=== PATIENT | male | born 1955 | race Caucasian/White ===

== ENCOUNTER 2017-03-18 14:05 | Emergency (ER) | payer MEDICARE, MEDICAID ==
[~2017-03-18] VITALS: Ht 160 cm; Wt 69.8 kg
[~2017-03-18 14:05] MED LIST: ALBU2.5V7 AEROSOL; AMLO10TA62 PO; ASPI-558 PO; CLOP75TA PO; HYDR-4246 PO; LORA0.5T2 PO; OXYC40TA25 PO; PRED10TA PO; [UNRECOGNIZED DRUG - CODE] PO
[2017-03-18 14:08] VITALS: Ht 160 cm; Wt 69.8 kg
--- OUTSIDE RECORDS SUMMARY | 2017-03-18 14:09 | XMS REPORT | Continuity of Care Document ---
Author Author [facility] Organization [facility] Address Unknown Phone Unavailable Support Name Relationship Address Phone ZELALEM PAULA Next Of Kin [address] [place] [address] Unavailable Insurance Providers Payer Name Policy Number Subscriber Name Relationship Medicaid [id number] [place] 19 Self Medicare [id number] Donald Balbuena 19 Self Problems No Known Problems or Medical conditions. Family History History Response Recorded Date/Time Hx Abdominal Surgery Y [place], APPE 06/14/13 5:23pm HX Cerebrovascular Accident N 06/14/13 5:23pm Hx Seizures N 06/14/13 5:23pm Hx Angina N 06/14/13 5:23pm Hx Congestive Heart Failure N 06/14/13 5:23pm Hx Heart Attack N 06/14/13 5:23pm Hx Hypertension Y 06/14/13 5:23pm Hx Chronic Obstructive Pulmonary Disease (COPD) N 06/14/13 5:23pm Hx Diabetes N 06/14/13 5:23pm Respiratory COPD 12/12/11 10:05am Social History History Response Recorded Date/Time Smoking Status Unknown if ever smoked 06/14/13 5:23pm Hx Alcohol Use Y mixed drink last night 06/14/13 5:23pm Allergies, Adverse Reactions, Alerts Allergen Type Severity Reaction Last Updated Soap Allergy Mild 06/14/13 tramadol HCl Adverse Reaction Unknown RASH 05/01/13 povidone-iodine Allergy Mild 06/14/13 Oxaprozin Allergy Unknown 05/01/13 Medications Medication Dose Units Route Sig Qty Days Amlodipine Besylate 10 Mg PO DAILY Esomeprazole Mag Trihydrate (Nexium) 20 Mg PO DAILY Aspirin (Aspir 81) 81 Mg PO DAILY Oxycodone Hcl (Oxycontin) 40 Mg PO BID Hydrocodone Bit/Acetaminophen (Hydrocodone-Apap 10-650 Tablet) 1 Tab PO BID [Amlodipine] Immunizations Name Given Type Hx Tetanus, Diptheria, Pertussis Y H Response Recorded Date/Time Status not known Unknown Results No Known Relevant Diagnostic Tests, Laboratory Data and/or Discharge Summary. Procedures Procedure Code Date THER/PROPH/DIAG INJ IV PUSH 95309 05/17/11 THER/PROPH/DIAG INJ IV PUSH 71394 10/25/12 THER/PROPH/DIAG INJ IV PUSH 20184 06/14/13 TX/PRO/DX INJ NEW DRUG ADDON 50994 06/14/13 HYDRATE IV INFUSION ADD-ON 40399 06/14/13 HYDRATE IV INFUSION ADD-ON 71466 06/14/13 Encounters Encounter Location Date/Time Departed Emergency Room [facility] 06/14/13 4:53pm Registered Emergency Room [facility] 0:00am
--- OUTSIDE RECORDS SUMMARY | 2017-03-18 14:09 | XMS REPORT ---
Author Author Alisia Sampson [facility] eClinicalWorks Address Unknown Phone Unavailable Care Team Providers Care Stereotyper Apprentice Name Role Phone Alisia Sampson Unavailable Allergies, Adverse Reactions, Alerts Substance Reaction Event Type Ultram Info Not Available Drug Allergy Problems Problem Type Condition ICD-9 Code Onset Dates Condition Status Problem Benign hypertension 401.1 Active Problem Drug Use, Long-term High-Risk Medication V58.69 Active Problem BPH W/O URINARY OBSTRUCT 600.00 Active Problem Peripheral vascular disease NOS 443.9 Active Problem Hypercholesterolemia NOS 272.4 Active Problem Dysphagia 438.82 Active Problem Anklosing spondylitis 720.0 Active Problem Tobacco use disorder 305.1 Active Problem GERD 530.81 Active Assessment Hypercholesterolemia NOS 272.4 Active Assessment Anklosing spondylitis 720.0 Active Assessment Fasting glucose impairment 790.21 Active Assessment Tobacco use disorder 305.1 Active Assessment Peripheral vascular disease NOS 443.9 Active Medications Medication Code System Code Instructions Start Date End Date Status Dosage Lortab 10 MULTUM 9765 500 mg-10 mg orally every 8 hours January 25, 2013 Active 1 tab(s) Avodart MULTUM 98525 0.5 mg orally once a day Active 1 cap(s) ranitidine MULTUM 41976 150 mg orally 2 times a day Active 1 cap(s) Echinacea Unknown 0 Active Unknown OxyContin MULTUM 6369 40mg orally Q12H January 25, 2013 Active 1 pill Cranberry Unknown 0 Active Unknown Xylocaine Topical MULTUM 97557 5% applied topically prn June 09, 2009 Active 1 jose rafael Lotrel MULTUM 1289 5 mg-10 mg orally once a day Nov 26, 2012 Active 1 cap(s) Elderberry Unknown 0 Active Unknown Nexium MULTUM 36965 40.0 Milligram Active TAKE 1 CAPSULE BY MOUTH DAILY aspirin Unknown 0 81mg daily Active 1tab Diprolene MULTUM 113 dipropionate, augmented 0.05% applied topically 2 times a day 2012 Active 1 jose rafael Procedures Procedure Coding System Code Date Glycated Hemoglobin Test CPT-4 77612 February 23, 2013 Office/Outpatient Visit-Est CPT-4 22526 February 23, 2013 Basic Metabolic Panel CPT-4 69326 February 23, 2013 Vital Signs Date/Time: February 23, 2013 Temperature 98.5 F Blood Pressure Diastolic 80 mm Hg Blood Pressure Systolic 140 mm Hg Height 61 inches Weight 151.9 lbs Results Hemoglobin A1c HEMOGLOBIN A1C(-4.5-6.2 %) 5.0 BMP - Basic Metabolic Panel (8) SODIUM(-136-145 mmol/L) 138 GLUCOSE(-74-108 mg/dL) 88 BUN/CREAT RATIO(-12.0-20.0 CALC) 14.3 POTASSIUM(-3.5-5.1 mmol/L) 4.1 CREATININE(-0.6-1.3 mg/dL) 0.7 CARBON DIOXIDE(-21-32 mmol/L) 27 CALCIUM(-8.5-10.1 mg/dL) 8.8 CHLORIDE(-98-107 mmol/L) 99 BUN(-7-18 mg/dL) 10 Summary Purpose eClinicalWorks Submission
--- OUTSIDE RECORDS SUMMARY | 2017-03-18 14:09 | XMS REPORT ---
Author Alisia Khan [facility] eClinicalWorks Address Unknown Phone Unavailable Care Team Providers Care Call Worker Person Name Role Phone Alisia Sampson CP Unavailable Allergies, Adverse Reactions, Alerts Substance Reaction Event Type Ultram Info Not Available Drug Allergy Problems Problem Type Condition ICD-9 Code Onset Dates Condition Status Problem BPH W/O URINARY OBSTRUCT 600.00 Active Problem Anklosing spondylitis 720.0 Active Problem Drug Use, Long-term High-Risk Medication V58.69 Active Problem Tobacco abuse counseling V65.42 Active Problem Peripheral vascular disease NOS 443.9 Active Problem CAD (coronary artery disease) 414.9 Active Problem GERD 530.81 Active Problem Dysphagia 438.82 Active Problem Hypercholesterolemia NOS 272.4 Active Problem Tobacco use disorder 305.1 Active Assessment Anklosing spondylitis 720.0 Active Assessment Tooth abscess 522.5 Active Assessment Groin mass 789.30 Active Problem Benign hypertension 401.1 Active Medications Medication Code System Code Instructions Start Date End Date Status Dosage aspirin NDC 0 325 PO daily Active 1tab amoxicillin NDC 85857 500 mg orally 3 times a day Sep 27, 2014 Active 1 cap(s) Nexium NDC 99384 40 mg orally daily Active not defined [place] NDC 28761 325 mg-10 mg orally every 8 hours Jun 22, 2014 Active 1 tab(s) Xylocaine Topical NDC 38995 5% applied topically prn June 09, 2009 Active 1 jose rafael Cranberry NDC 0 Active not defined Lotrel NDC 1289 5 mg-10 mg orally once a day Aug 19, 2014 Active 1 cap (s) nizatidine NDC 61723 150 mg PO daily Active 1 tab Elderberry NDC 0 Active not defined Echinacea NDC 0 Active not defined Metoprolol Tartrate NDC 1073 25 mg PO BID Active 1 tab clopidogrel NDC 73049 75 mg PO daily Active 1 tab Diprolene NDC 113 dipropionate, augmented 0.05% applied topically 2 times a day 2012 Active 1 jose rafael ranitidine NDC 76496 150 Milligram Aug 29, 2014 Active TAKE 1 CAPSULE BY MOUTH TWICE DAILY Avodart NDC 23952 0.5 mg orally once a day March 07, 2014 Active 1 cap (s) Fluticasone Propionate NDC 37189 50 mcg/inh intranasally once a day Sep Active 2 spray(s) OxyContin NDC 6369 40mg orally Q12H Active 1 pill Procedures Procedure Coding System Code Date Office/Outpatient Visit-Est CPT-4 89783 Sep 27, 2014 Vital Signs Date/Time: Sep 27, 2014 Temperature 98.3 F Blood Pressure Diastolic 80 mm Hg Blood Pressure Systolic 120 mm Hg BMI 22.52 Index Height 68 in Weight 148.1 lbs Pulse 77 /min Results No Known Results Summary Purpose eClinicalWorks Submission
--- OUTSIDE RECORDS SUMMARY | 2017-03-18 14:09 | XMS REPORT ---
Author Author Alisia Sampson [facility] eClinicalWorks Address Unknown Phone Unavailable Care Team Providers Care Ditto Machine Operator Name Role Phone Alisia Sampson Unavailable Allergies, Adverse Reactions, Alerts Substance Reaction Event Type Ultram Info Not Available Drug Allergy Problems Problem Type Condition ICD-9 Code Onset Dates Condition Status Problem Benign hypertension 401.1 Active Problem Drug Use, Long-term High-Risk Medication V58.69 Active Problem BPH W/O URINARY OBSTRUCT 600.00 Active Assessment Intervertebral disc disease 722.90 Active Assessment Anklosing spondylitis 720.0 Active Problem Peripheral vascular disease NOS 443.9 Active Problem Hypercholesterolemia NOS 272.4 Active Problem Dysphagia 438.82 Active Problem Anklosing spondylitis 720.0 Active Problem Tobacco use disorder 305.1 Active Problem GERD 530.81 Active Medications Medication Code System Code Instructions Start Date End Date Status Dosage Nexium MULTUM 05319 40 Milligram Active TAKE 1 CAPSULE BY MOUTH DAILY aspirin Unknown 0 81mg daily Active 1tab Elderberry Unknown 0 Active Unknown Xylocaine Topical MULTUM 41808 5% applied topically prn June 09, 2009 Active 1 jose rafael ranitidine MULTUM 27071 150 Milligram Active TAKE 1 CAPSULE BY MOUTH TWICE DAILY Cranberry Unknown 0 Active Unknown Diprolene MULTUM 113 dipropionate, augmented 0.05% applied topically 2 times a day 2012 Active 1 jose rafael Lortab 10 MULTUM 9765 500 mg-10 mg orally every 8 hours Active 1 tab (s) OxyContin MULTUM 6369 40mg orally Q12H Active 1 pill Echinacea Unknown 0 Active Unknown Avodart MULTUM 78024 0.5 mg orally once a day Active 1 cap(s) gabapentin MULTUM 94111 300 mg orally 3 times a day January 18, 2014 Active 1 cap(s) Lotrel MULTUM 1289 5 mg-10 mg orally once a day Nov 19, 2013 Active 1 cap(s) Procedures Procedure Coding System Code Date AT LEAST 1 RX TRANSMIT ERX SYS CPT-4 G8553 January 18, 2014 Office/Outpatient Visit-Est CPT-4 46141 January 18, 2014 Vital Signs Date/Time: January 18, 2014 Temperature 99.5 F Blood Pressure Diastolic 70 mm Hg Blood Pressure Systolic 140 mm Hg Height 60 inches Weight 147.7 lbs Results No Known Results Summary Purpose eClinicalWorks Submission
--- OUTSIDE RECORDS SUMMARY | 2017-03-18 14:09 | XMS REPORT ---
Author Author Alisia Sampson Organization eClinicalWorks Address Unknown Phone Unavailable Care Team Providers Care Remote Sensing Specialist Name Role Phone Alisia Sampson Unavailable Allergies No Known Allergies Problems Problem Type Condition ICD-9 Code Onset Dates Condition Status Problem Anklosing spondylitis 720.0 Active Problem GERD 530.81 Active Problem Dysphagia 438.82 Active Problem Hyperlipemia 272.4 Active Problem CAD (coronary artery disease) 414.00 Active Problem Gout 274.9 Active Problem Hypercholesterolemia NOS 272.4 Active Problem Tobacco use disorder 305.1 Active Problem Tobacco abuse counseling V65.42 Active Problem Peripheral vascular disease NOS 443.9 Active Problem Benign hypertension 401.1 Active Problem BPH W/O URINARY OBSTRUCT 600.00 Active Problem Drug Use, Long-term High-Risk Medication V58.69 Active Medications Medication Code System Code Instructions Start Date End Date Status Dosage [place] NDC 75434 325 mg-10 mg orally every 8 hours May 23, 2015 1 tab(s) lorazepam NDC 41241 0.5 mg orally QD prn panic attack May 23, 2015 1 tab(s) OxyContin NDC 6369 40mg orally Q12H May 23, 2015 1 pill Results No Known Results Summary Purpose eClinicalWorks Submission
--- OUTSIDE RECORDS SUMMARY | 2017-03-18 14:09 | XMS REPORT ---
Author Author Alisia Sampson Organization eClinicalWorks Address Unknown Phone Unavailable Care Team Providers Care Product Safety Coordinator Name Role Phone Alisia Sampson CP Unavailable Allergies No Known Allergies Problems Problem Type Condition Code Onset Dates Condition Status Problem Anklosing [...] Instructions Start Date End Date Status Dosage Anselmo [place] [facility] 2377 100 mg orally 3 times a day Oct 16, 2015 1 cap(s) Results No Known Results Summary Purpose eClinicalWorks Submission
--- OUTSIDE RECORDS SUMMARY | 2017-03-18 14:09 | XMS REPORT ---
Author Author Alisia Sampson Organization eClinicalWorks Address Unknown Phone Unavailable Care Team Providers Care Naval Aircrewman Name Role Phone Alisia Sampson CP Unavailable Allergies No Known Allergies Problems Problem Type Condition ICD-9 Code Onset Dates Condition Status Problem Drug Use, Long-term High-Risk Medication V58.69 Active Problem Dysphagia 438.82 Active Problem Anklosing spondylitis 720.0 Active Problem Benign hypertension 401.1 Active Problem BPH W/O URINARY OBSTRUCT 600.00 Active Problem CAD (coronary artery disease) 414.00 Active Problem Tobacco abuse counseling V65.42 Active Problem Hyperlipemia 272.4 Active Problem Tobacco use disorder 305.1 Active Problem GERD 530.81 Active Problem Peripheral vascular disease NOS 443.9 Active Problem Hypercholesterolemia NOS 272.4 Active Medications No Known Medications Results No Known Results Summary Purpose eClinicalWorks Submission
--- OUTSIDE RECORDS SUMMARY | 2017-03-18 14:09 | XMS REPORT ---
Author Author Alisia Sampson Organization eClinicalWorks Address Unknown Phone Unavailable Care Team Providers Care Salesperson Pianos [employer]gans Name Role Phone Alisia Sampson CP Unavailable Allergies No Known Allergies Problems Problem Type Condition ICD-9 Code Onset Dates Condition Status Problem BPH W/O URINARY OBSTRUCT 600.00 Active Problem Anklosing spondylitis 720.0 Active Problem Drug Use, Long-term High-Risk Medication V58.69 Active Problem Benign hypertension 401.1 Active Problem Tobacco abuse counseling V65.42 Active Problem Peripheral vascular disease NOS 443.9 Active Problem CAD (coronary artery disease) 414.00 Active Problem GERD 530.81 Active Problem Dysphagia 438.82 Active Problem Hypercholesterolemia NOS 272.4 Active Problem Tobacco use disorder 305.1 Active Medications Medication Code System Code Instructions Start Date End Date Status Dosage [place] NDC 35848 325 mg-10 mg orally every 8 hours Nov 28, 2014 Active 1 tab(s) OxyContin NDC 6369 40mg orally Q12H Nov 28, 2014 Active 1 pill Results No Known Results Summary Purpose eClinicalWorks Submission
--- OUTSIDE RECORDS SUMMARY | 2017-03-18 14:09 | XMS REPORT ---
Author Author Alisia Sampson Organization eClinicalWorks Address Unknown Phone Unavailable Care Team Providers Care Cargo Worker Name Role Phone Alisia Sampson CP Unavailable [...] Use, Long-term High-Risk Medication V58.69 Active Medications No Known Medications Results No Known Results Summary Purpose eClinicalWorks Submission
--- OUTSIDE RECORDS SUMMARY | 2017-03-18 14:09 | XMS REPORT ---
Author Author Alisia Sampson Organization eClinicalWorks Address Unknown Phone Unavailable Care Team Providers Care Community Affairs Manager Name Role Phone Alisia Sampson CP Unavailable Allergies No Known Allergies Problems Problem Type Condition ICD-9 Code Onset Dates Condition Status Problem BPH W/O URINARY OBSTRUCT 600.00 Active Problem Anklosing spondylitis 720.0 Active Problem Drug Use, Long-term High-Risk Medication V58.69 Active Assessment Benign hypertension 401.1 Active Problem Benign hypertension 401.1 Active Problem Tobacco abuse counseling V65.42 Active Problem Peripheral vascular disease NOS 443.9 Active Problem CAD (coronary artery disease) 414.00 Active Problem GERD 530.81 Active Problem Dysphagia 438.82 Active Problem Hypercholesterolemia NOS 272.4 Active Problem Tobacco use disorder 305.1 Active Medications Medication Code System Code Instructions Start Date End Date Status Dosage Lotrel NDC 1289 5 mg-10 mg orally once a day Aug 19, 2014 Active 1 cap (s) Results No Known Results Summary Purpose eClinicalWorks Submission
--- OUTSIDE RECORDS SUMMARY | 2017-03-18 14:09 | XMS REPORT ---
Author Alisia Khan [facility] eClinicalWorks Address Unknown Phone Unavailable Care Team Providers Care Etcher Photoengraving Name Role Phone Alisia Sampson Unavailable Allergies, [...] Instructions Start Date End Date Status Dosage Echinacea Unknown 0 Active Unknown OxyContin MULTUM 6369 40mg orally Q12H Nov 17, 2013 Active 1 pill Diprolene MULTUM 113 dipropionate, augmented 0.05% applied topically 2 times a day 2012 Active 1 jose rafael Lyrica MULTUM 84608 75 mg orally 2 times a day Dec 21, 2013 Active 1 cap(s) Lotrel MULTUM 1289 5 mg-10 mg orally once a day Nov 19, 2013 Active 1 cap(s) aspirin Unknown 0 81mg daily Active 1tab Lortab 10 MULTUM 9765 500 mg-10 mg orally every 8 hours Nov 17, 2013 Active 1 tab(s) Elderberry Unknown 0 Active Unknown Nexium MULTUM 97036 40.0 Milligram Active TAKE 1 CAPSULE BY MOUTH DAILY Avodart MULTUM 19950 0.5 mg orally once a day Active 1 cap(s) Xylocaine Topical MULTUM 07069 5% applied topically prn June 09, 2009 Active 1 jose rafael ranitidine MULTUM 29168 150 Milligram Active TAKE 1 CAPSULE BY MOUTH TWICE DAILY Cranberry Unknown 0 Active Unknown Procedures Procedure Coding System Code Date Office/Outpatient Visit-Est CPT-4 04914 Dec 21, 2013 Vital Signs Date/Time: Dec 21, 2013 Temperature 98.8 F Blood Pressure Diastolic 80 mm Hg Blood Pressure Systolic 130 mm Hg Height 60 inches Weight 145.7 lbs Results No Known Results Summary Purpose eClinicalWorks Submission
--- OUTSIDE RECORDS SUMMARY | 2017-03-18 14:09 | XMS REPORT ---
Author Author Alisia Sampson Organization eClinicalWorks Address Unknown Phone Unavailable Care Team Providers Care Auto Damage Appraiser Name Role Phone Alisia Sampson CP Unavailable [...]
--- OUTSIDE RECORDS SUMMARY | 2017-03-18 14:09 | XMS REPORT ---
Author Alisia Khan Organization eClinicalWorks Address Unknown Phone Unavailable Care Team Providers Care Group Leader Name Role Phone Alisia Sampson CP Unavailable Allergies No Known Allergies Problems Problem Type Condition Code Onset Dates Condition Status Assessment Ankylosing spondylitis M45.9 Active Problem Peripheral vascular disease I73.9 Active Problem Tobacco abuse disorder Z72.0 Active Problem Essential hypertension I10 Active Problem Coronary artery disease involving [place] coronary artery of [place] heart without angina pectoris I25.10 Active Problem Hypercholesterolemia E78.0 Active Problem Gout 274.9 Active Problem Gastroesophageal reflux disease without esophagitis K21.9 Active Problem Ankylosing spondylitis M45.9 Active Problem Benign non-nodular prostatic hyperplasia, presence of lower urinary tract symptoms unspecified N40.0 Active Medications Medication Code System Code Instructions Start Date End Date Status Dosage OxyContin NDC 6369 40mg orally Q12H April 24, 2016 1 pill [place] NDC 18901 325 mg-10 mg orally every 8 hours April 24, 2016 1 tab(s) lorazepam NDC 93892 0.5 mg orally QD prn panic attack May 23, 2015 1 tab(s) Results No Known Results Summary Purpose eClinicalWorks Submission
--- OUTSIDE RECORDS SUMMARY | 2017-03-18 14:09 | XMS REPORT ---
Author Author Alisia Sampson [facility] eClinicalWorks Address Unknown Phone Unavailable Care Team Providers Care Molder Inflated Ball Name Role Phone Alisia Sampson Unavailable Allergies, Adverse Reactions, Alerts Substance Reaction Event Type Ultram Info Not Available Drug Allergy Problems Problem Type Condition ICD-9 Code Onset Dates Condition Status Assessment Epigastric pain 789.06 Active Problem BPH W/O URINARY OBSTRUCT 600.00 Active Problem Benign hypertension 401.1 Active Problem Hypercholesterolemia NOS 272.4 Active Problem Tobacco use disorder 305.1 Active Problem Peripheral vascular disease NOS 443.9 Active Problem Anklosing spondylitis 720.0 Active Problem Drug Use, Long-term High-Risk Medication V58.69 Active Problem GERD 530.81 Active Problem Dysphagia 438.82 Active Medications Medication Code System Code Instructions Start Date End Date Status Dosage Dexilant MULTUM 567933 60 mg orally once a day February 24, 2014 Active 1 cap(s) OxyContin MULTUM 6369 40mg orally Q12H Active 1 pill Xylocaine Topical MULTUM 06141 5% applied topically prn June 09, 2009 Active 1 jose rafael Lotrel MULTUM 1289 5 mg-10 mg orally once a day February 18, 2014 Active 1 cap(s) Diprolene MULTUM 113 dipropionate, augmented 0.05% applied topically 2 times a day 2012 Active 1 jose rafael Lortab 10 MULTUM 9765 500 mg-10 mg orally every 8 hours Active 1 tab (s) Cranberry Unknown 0 Active Unknown aspirin Unknown 0 81mg daily Active 1tab Elderberry Unknown 0 Active Unknown gabapentin MULTUM 00499 300 mg orally 3 times a day January 18, 2014 Active 1 cap(s) Echinacea Unknown 0 Active Unknown Avodart MULTUM 93875 0.5 mg orally once a day Active 1 cap(s) Carafate MULTUM 476 1 g orally 4 times a day (before meals and at bedtime) February 24, 2014 Active 1 tab(s) Nexium MULTUM 08449 40 Milligram Active TAKE 1 CAPSULE BY MOUTH DAILY ranitidine MULTUM 92797 150 Milligram Active TAKE 1 CAPSULE BY MOUTH TWICE DAILY Procedures Procedure Coding System Code Date Office/Outpatient Visit-Est CPT-4 36375 February 23, 2014 Vital Signs Date/Time: February 23, 2014 Temperature 98.9 F Blood Pressure Diastolic 80 mm Hg Blood Pressure Systolic 140 mm Hg Height 60 in Weight 143.9 lbs Results No Known Results Summary Purpose eClinicalWorks Submission
--- OUTSIDE RECORDS SUMMARY | 2017-03-18 14:09 | XMS REPORT ---
Author Alisia Khan Organization eClinicalWorks Address Unknown Phone Unavailable Care Team Providers Care Development Trainer Name Role Phone Alisia Sampson CP Unavailable [...] Active Problem Hypercholesterolemia NOS 272.4 Active Medications Medication Code System Code Instructions Start Date End Date Status Dosage OxyContin NDC 6369 40mg orally Q12H January 24, 2015 1 pill [place] NDC 37117 325 mg-10 mg orally every 8 hours January 24, 2015 1 tab(s) amoxicillin NDC 77272 500 mg orally 3 times a day January 24, 2015 1 cap(s) Results No Known Results Summary Purpose eClinicalWorks Submission
--- OUTSIDE RECORDS SUMMARY | 2017-03-18 14:09 | XMS REPORT ---
Author Alisia Khan [facility] eClinicalWorks Address Unknown Phone Unavailable Care Team Providers Care Director Of Business Continuity Name Role Phone Alisia Sampson Unavailable Allergies, Adverse Reactions, Alerts Substance Reaction Event Type Ultram Info Not Available Drug Allergy Problems Problem Type Condition ICD-9 Code Onset Dates Condition Status Problem Benign hypertension 401.1 Active Problem Drug Use, Long-term High-Risk Medication V58.69 Active Problem BPH W/O URINARY OBSTRUCT 600.00 Active Assessment Peripheral vascular disease NOS 443.9 Active Problem Peripheral vascular disease NOS 443.9 Active Problem Hypercholesterolemia NOS 272.4 Active Problem Dysphagia 438.82 Active Problem Anklosing spondylitis 720.0 Active Problem Tobacco use disorder 305.1 Active Problem GERD 530.81 Active Medications Medication Code System Code Instructions Start Date End Date Status Dosage OxyContin MULTUM 6369 40mg orally Q12H January 25, 2013 Active 1 pill Xylocaine Topical MULTUM 96947 5% applied topically prn June 09, 2009 Active 1 jose rafael Elderberry Unknown 0 Active Unknown Diprolene MULTUM 113 dipropionate, augmented 0.05% applied topically 2 times a day 2012 Active 1 jose rafael Lortab 10 MULTUM 9765 500 mg-10 mg orally every 8 hours January 25, 2013 Active 1 tab(s) Avodart MULTUM 54047 0.5 mg orally once a day Active 1 cap(s) Cranberry Unknown 0 Active Unknown Nexium MULTUM 15840 40.0 Milligram Active TAKE 1 CAPSULE BY MOUTH DAILY Lotrel MULTUM 1289 5 mg-10 mg orally once a day Nov 26, 2012 Active 1 cap(s) amoxicillin MULTUM 85020 500 mg orally 3 times a day February 26, 2013 Active 1 cap(s) aspirin Unknown 0 81mg daily Active 1tab Echinacea Unknown 0 Active Unknown ranitidine MULTUM 32181 150 mg orally 2 times a day Active 1 cap(s) Procedures Procedure Coding System Code Date Office/Outpatient Visit-Est CPT-4 95055 March 22, 2013 Vital Signs Date/Time: March 22, 2013 Temperature 97.4 F Blood Pressure Diastolic 80 mm Hg Blood Pressure Systolic 142 mm Hg Height 61 inches Weight 148.5 lbs Results No Known Results Summary Purpose eClinicalWorks Submission
--- OUTSIDE RECORDS SUMMARY | 2017-03-18 14:09 | XMS REPORT ---
Author Author Alisia Sampson Organization [employer] Address Unknown Phone Unavailable Care Team Providers Care Balloon Design Printer Name Role Phone Alisia Sampson CP Unavailable Allergies, Adverse Reactions, Alerts Substance Reaction Event Type Ultram Info Not Available Drug Allergy Problems Problem Type Condition ICD-9 Code Onset Dates Condition Status Problem Benign hypertension 401.1 Active Problem Drug Use, Long-term High-Risk Medication V58.69 Active Problem BPH W/O URINARY OBSTRUCT 600.00 Active Assessment Flu Shot V04.81 Active Problem Peripheral vascular disease NOS 443.9 Active Problem Hypercholesterolemia NOS 272.4 Active Problem Dysphagia 438.82 Active Problem Anklosing spondylitis 720.0 Active Problem Tobacco use disorder 305.1 Active Problem GERD 530.81 Active Medications No Known Medications Procedures Procedure Coding System Code Date Administration of FLU Vaccine CPT-4 G0008 Jul 23, 2013 FLU VACC SPLIT 3 YRS & > IM FLUZONE CPT-4 Q2038 Jul 23, 2013 Vital Signs Date/Time: May 10, 2013 Temperature 97.5 F Blood Pressure Diastolic 80 mm Hg Blood Pressure Systolic 140 mm Hg Height 61 inches Weight 149.0 lbs Results No Known Results Immunizations Vaccine Administration Date Flu Shot-Adult Jul 23, 2013 Summary Purpose eClinicalWorks Submission
--- OUTSIDE RECORDS SUMMARY | 2017-03-18 14:09 | XMS REPORT ---
Author Author Alisia Sampson Organization [employer] Address Unknown Phone Unavailable Care Team Providers Care Construction Skills Teacher Name Role Phone Alisia Sampson CP Unavailable [...] Dosage OxyContin NDC 6369 40mg orally Q12H Active 1 pill [place] NDC 16758 325 mg-10 mg orally every 8 hours Jun 22, 2014 Active 1 tab(s) Results No Known Results Summary Purpose [employer]ClinicalWorks Submission
--- OUTSIDE RECORDS SUMMARY | 2017-03-18 14:09 | XMS REPORT ---
Author Author Alisia Sampson Organization [employer] Address Unknown Phone Unavailable Care Team Providers Care Community Health Director Name Role Phone Alisia Sampson CP Unavailable [...] Dosage OxyContin MULTUM 6369 40mg orally Q12H Active 1 pill Lortab 10 MULTUM 9765 500 mg-10 mg orally every 8 hours Active 1 tab (s) Results No Known Results Summary Purpose [employer]Works Submission
--- OUTSIDE RECORDS SUMMARY | 2017-03-18 14:09 | XMS REPORT ---
Author Author Alisia Sampson Organization [employer] Address Unknown Phone Unavailable Care Team Providers Care Tap Out Operator Name Role Phone Alisia Sampson CP Unavailable [...] Instructions Start Date End Date Status Dosage lorazepam NDC 31566 0.5 mg orally QD prn panic attack May 23, 2015 1 tab(s) [place] NDC 48090 325 mg-10 mg orally every 8 hours February 22, 2016 1 tab(s) OxyContin NDC 6369 40mg orally Q12H May 23, 2015 1 pill Results No Known Results Summary Purpose [employer]ClinicalWorks Submission
--- OUTSIDE RECORDS SUMMARY | 2017-03-18 14:09 | XMS REPORT ---
Author Author Alisia Sampson Organization [employer] Address Unknown Phone Unavailable Care Team Providers Care Hydraulic Jack Adjuster Name Role Phone Alisia Sampson CP Unavailable [...]
--- OUTSIDE RECORDS SUMMARY | 2017-03-18 14:09 | XMS REPORT ---
Author Author Alisia Sampson Organization [employer] Address Unknown Phone Unavailable Care Team Providers Care Oven Laborer Name Role Phone Alisia Sampson CP Unavailable Allergies, Adverse Reactions, Alerts Substance Reaction Event Type Ultram Info Not Available Drug Allergy Problems Problem Type Condition ICD-9 Code Onset Dates Condition Status Assessment Flu Shot V04.81 Active Problem BPH W/O URINARY OBSTRUCT 600.00 Active Problem Benign hypertension 401.1 Active Problem Hypercholesterolemia NOS 272.4 Active Problem Tobacco use disorder 305.1 Active Problem Peripheral vascular disease NOS 443.9 Active Problem Anklosing spondylitis 720.0 Active Problem Drug Use, Long-term High-Risk Medication V58.69 Active Problem GERD 530.81 Active Problem Dysphagia 438.82 Active Medications No Known Medications Procedures Procedure Coding System Code Date FLU VACC SPLIT 3 YRS & > IM FLUZONE CPT-4 Q2038 Jul 25, 2014 Administration of FLU Vaccine CPT-4 G0008 Jul 25, 2014 Results No Known Results Immunizations Vaccine Administration Date Flu Shot-Adult Jul 25, 2014 Summary Purpose [employer]ClinicalWorks Submission
--- OUTSIDE RECORDS SUMMARY | 2017-03-18 14:09 | XMS REPORT ---
Author Author Alisia Sampson Organization [employer] Address Unknown Phone Unavailable Care Team Providers Care Body Shop Worker Name Role Phone Alisia Sampson CP [...] Instructions Start Date End Date Status Dosage [place] NDC 71895 325 mg-10 mg orally every 8 hours May 23, 2015 1 tab(s) lorazepam NDC 70575 0.5 mg orally QD prn panic attack May 23, 2015 1 tab(s) OxyContin NDC 6369 40mg orally Q12H May 23, 2015 1 pill Results No Known Results Summary Purpose [employer]ClinicalWorks Submission
--- OUTSIDE RECORDS SUMMARY | 2017-03-18 14:10 | XMS REPORT ---
Author Alisia Khan [facility] [place] [employer] Address Unknown Phone Unavailable Care Team Providers Care Case Making Machine Operator Name Role Phone Alisia Sampson CP Unavailable Allergies, Adverse Reactions, Alerts Substance Reaction Event Type Ultram Info Not Available Drug Allergy Problems Problem Type Condition Code Onset Dates Condition Status Problem Anklosing spondylitis 720.0 Active Problem GERD 530.81 Active Problem Dysphagia 438.82 Active Problem Hyperlipemia 272.4 Active Problem CAD (coronary artery disease) 414.00 Active Problem Gout 274.9 Active Problem Hypercholesterolemia NOS 272.4 Active Problem Tobacco use disorder 305.1 Active Problem Tobacco abuse counseling V65.42 Active Problem Peripheral vascular disease NOS 443.9 Active Assessment Constipation K59.00 Active Problem Benign hypertension 401.1 Active Problem BPH W/O URINARY OBSTRUCT 600.00 Active Problem Drug Use, Long-term High-Risk Medication V58.69 Active Medications Medication Code System Code Instructions Start Date End Date Status Dosage Echinacea NDC 0 not defined aspirin NDC 0 325 PO daily 1tab MiraLax NDC 13106 - orally bid Aug 15, 2015 17 g nizatidine NDC 39612 150 mg PO daily 1 tab Lotrel NDC 1289 5 mg-10 mg orally once a day 1 cap(s) clopidogrel NDC 94370 75 mg PO daily 1 tab [place] NDC 50227 325 mg-10 mg orally every 8 hours May 23, 2015 1 tab(s) OxyContin NDC 6369 40mg orally Q12H May 23, 2015 1 pill Xylocaine Topical NDC 22117 5% applied topically prn June 09, 2009 1 jose rafael Fluticasone Propionate NDC 95673 50 intranasally once a day 2 spray(s) Nexium NDC 13886 40 mg orally daily Oct 09, 2014 not defined amlodipine-benazepril NDC 77033 5 mg-10 mg orally once a day 1 cap (s) lorazepam NDC 12483 0.5 mg orally QD prn panic attack May 23, 2015 1 tab(s) Cran[place] NDC 0 not defined Elderberry NDC 0 not defined Procedures Procedure Coding System Code Date Office/Outpatient Visit-Est CPT-4 30236 Sep 14, 2015 X-Ray Exam of Abdomen CPT-4 45961 Sep 14, 2015 Vital Signs Date/Time: Sep 14, 2015 Temperature 99.6 F Blood Pressure Diastolic 80 mm Hg Blood Pressure Systolic 116 mm Hg BMI 29.06 Index Height 62 in Weight 158.9 lbs Results No Known Results Summary Purpose eClinicalWorks Submission
--- OUTSIDE RECORDS SUMMARY | 2017-03-18 14:10 | XMS REPORT ---
Author Ailsia Khan [facility] [place] [employer] Address Unknown Phone Unavailable Care Team Providers Care Duty Manager Name Role Phone Alisia Sampson Unavailable Allergies, [...] Date End Date Status Dosage Nexium MULTUM 90628 40.0 Milligram Active TAKE 1 CAPSULE BY MOUTH DAILY Elderberry Unknown 0 Active Unknown aspirin Unknown 0 81mg daily Active 1tab Xylocaine Topical MULTUM 69306 5% applied topically prn June 09, 2009 Active 1 jose rafael ranitidine MULTUM 85205 150 mg orally 2 times a day Active 1 cap(s) Lotrel MULTUM 1289 5 mg-10 mg orally once a day Nov 26, 2012 Active 1 cap(s) OxyContin MULTUM 6369 40mg orally Q12H Sep 22, 2013 Active 1 pill [place] Unknown 0 Active Unknown Lortab 10 MULTUM 9765 500 mg-10 mg orally every 8 hours Sep 22, 2013 Active 1 tab(s) Diprolene MULTUM 113 dipropionate, augmented 0.05% applied topically 2 times a day 2012 Active 1 jose rafael Echinacea Unknown 0 Active Unknown Avodart MULTUM 47308 0.5 mg orally once a day Active 1 cap(s) Procedures Procedure Coding System Code Date Office/Outpatient Visit-Est CPT-4 79705 Oct 05, 2013 Vital Signs Date/Time: Oct 05, 2013 Temperature 98.0 F Blood Pressure Diastolic 60 mm Hg Blood Pressure Systolic 130 mm Hg Height 61 inches Weight 143.8 lbs Results No Known Results Summary Purpose eClinicalWorks Submission
--- OUTSIDE RECORDS SUMMARY | 2017-03-18 14:10 | XMS REPORT ---
Author Author Alisia Sampson Organization [employer] Address Unknown Phone Unavailable Care Team Providers Care Forensic Medical Examiner Name Role Phone Alisia Sampson CP Unavailable [...]
--- OUTSIDE RECORDS SUMMARY | 2017-03-18 14:10 | XMS REPORT ---
Author Author Alisia Sampson Organization [employer] Address Unknown Phone Unavailable Care Team Providers Care Paper Baler Name Role Phone Alisia Sampson Unavailable Allergies [...] Instructions Start Date End Date Status Dosage [place] NDC 78283 325 mg-10 mg orally every 8 hours May 23, 2015 1 tab(s) lorazepam NDC 39215 0.5 mg orally QD prn panic attack May 23, 2015 1 tab(s) OxyContin NDC 6369 40mg orally Q12H May 23, 2015 1 pill Results No Known Results Summary Purpose eClinicalWorks Submission
--- OUTSIDE RECORDS SUMMARY | 2017-03-18 14:10 | XMS REPORT ---
Author Author Alisia Sampson Organization [employer] Address Unknown Phone Unavailable Care Team Providers Care [place] Man Name Role Phone Alisia Sampson CP Unavailable [...] Dosage OxyContin NDC 6369 40mg orally Q12H May 23, 2015 1 pill [place] NDC 96735 325 mg-10 mg orally every 8 hours May 23, 2015 1 tab(s) lorazepam NDC 18438 0.5 mg orally QD prn panic attack May 23, 2015 1 tab(s) Results No Known Results Summary Purpose eClinicalWorks Submission
--- OUTSIDE RECORDS SUMMARY | 2017-03-18 14:10 | XMS REPORT ---
Author Author Alisia Sampson [employer] Address Unknown Phone Unavailable Care Team Providers Care Family Helper Name Role Phone Alisia Sampson Unavailable Allergies, Adverse Reactions, Alerts Substance Reaction Event Type Ultram Info Not Available Drug Allergy Problems Problem Type Condition Code Onset Dates Condition Status Assessment Hypercholesterolemia E78.0 Active Problem Peripheral vascular disease I73.9 Active Problem Tobacco abuse disorder Z72.0 Active Problem Essential hypertension I10 Active Problem Coronary artery disease involving [place] coronary artery of [place] heart without angina pectoris I25.10 Active Problem Hypercholesterolemia E78.0 Active Problem Gout 274.9 Active Problem Gastroesophageal reflux disease without esophagitis K21.9 Active Problem Ankylosing spondylitis M45.9 Active Problem Benign non-nodular prostatic hyperplasia, presence of lower urinary tract symptoms unspecified N40.0 Active Assessment Benign non-nodular prostatic hyperplasia, presence of lower urinary tract symptoms unspecified N40.0 Active Assessment Ankylosing spondylitis M45.9 Active Assessment Coronary artery disease involving [place] coronary artery of [place] heart without angina pectoris I25.10 Active Assessment Encounter for long-term (current) use of other medications Z79.899 Active Assessment Essential hypertension I10 Active Medications Medication Code System Code Instructions Start Date End Date Status Dosage Cetirizine Hydrochloride NDC 158292 10 mg orally once a day April 05, 2016 1 tab(s) Lotrel NDC 1289 5 mg-10 mg orally once a day 1 cap(s) clopidogrel NDC 20381 75 mg PO daily 1 tab Echinacea NDC 0 not defined fluticasone nasal NDC 93830 50 mcg/inh intranasally once a day PRN April 05, 2016 1 to 2 spray(s) OxyContin NDC 6369 40mg orally Q12H April 24, 2016 1 pill Spiriva NDC 93694 18 mcg inhaled once a day Nov 09, 2015 1 ea Cranberry NDC 0 not defined Elderberry NDC 0 not defined aspirin NDC 0 325 PO daily 1tab lorazepam NDC 66434 0.5 mg orally QD prn panic attack May 23, 2015 1 tab(s) [place] [facility] 42742 325 mg-10 mg orally every 8 hours April 24, 2016 1 tab(s) Procedures Procedure Coding System Code Date Comprehensive Metabolic Panel CPT-4 96446 Jul 26, 2016 PNEUMOCOCCAL VACC, 13 ALEE IM CPT-4 84637 Jul 26, 2016 Lipid Panel CPT-4 28833 Jul 26, 2016 Office/Outpatient Visit-Est CPT-4 91619 Jul 26, 2016 VENIPUNCT, ROUTINE* CPT-4 33150 Jul 26, 2016 Zostavax CPT-4 76201 Jul 26, 2016 Immunization Admin CPT-4 14010 Jul 26, 2016 Flu Shot-Adult CPT-4 49748 Jul 26, 2016 Vital Signs Date/Time: Jul 26, 2016 Temperature 98.3 F Blood Pressure Diastolic 80 mm Hg Blood Pressure Systolic 126 mm Hg BMI 28.04 Index Height 62 in Weight 153.3 lbs Pulse 92 /min Results Name Result Date Reference Range Unit Abnormality Flag Lipid Panel ----HDL RISK FACTOR 4.5 [id number] 0.0-4.0 CALC H ----CHOLESTEROL 195 [id number] 0-200 mg/dL ----TRIGLYCERIDES 112 [id number] 30-150 mg/dL ----HDL CHOLESTEROL 43 [id number] 32-96 mg/dL ----LDL (CALCULATED) 130 [id number] 0-99 CALC H CMP - Comp. Metabolic Panel (14) ----CREATININE 0.87 [id number] 0.60-1.30 mg/dL ----BUN 9 [id number] 7-18 mg/dL ----CALCIUM 9.4 [id number] 8.5-10.1 mg/dL ----BUN/CREAT RATIO 10.3 [id number] 12.0-20.0 CALC L ----ALBUMIN 3.8 [id number] 3.4-5.0 g/dL ----GLOBULIN 3.4 [id number] 1.5-4.5 g/dL ----TOTAL PROTEIN 7.2 [id number] 6.4-8.2 g/dL ----ALT (SGPT) 27 [id number] 12-78 U/L ----CARBON DIOXIDE 30 [id number] 21-32 mmol/L ----AST (SGOT) 28 [id number] 15-37 U/L ----GLUCOSE 100 [id number] 74-108 mg/dL ----POTASSIUM 3.9 [id number] 3.5-5.1 mmol/L ----A/G RATIO 1.1 [id number] 1.1-2.5 CALC ----ALK. PHOSPHATASE 126 [id number] 50-136 mg/dL ----CHLORIDE 102 [id number] 98-107 mmol/L ----SODIUM 142 [id number] 136-145 mmol/L ----TOTAL BILIRUBIN 1.10 [id number] 0.10-1.00 mg/dL H Immunizations Vaccine Administration Date Prevnar-13 Jul 26, 2016 Zostavax Jul 26, 2016 Flu Shot-Adult Jul 26, 2016 Summary Purpose eClinicalWorks Submission
--- OUTSIDE RECORDS SUMMARY | 2017-03-18 14:10 | XMS REPORT ---
Author Author Alisia Sampson Organization [employer] Address Unknown Phone Unavailable Care Team Providers Care Vp Project Name Role Phone Alisia Sampson CP Unavailable [...]
--- OUTSIDE RECORDS SUMMARY | 2017-03-18 14:10 | XMS REPORT ---
Author Alisia Khan [facility] eClinicalWorks Address Unknown Phone Unavailable Care Team Providers Care Feather Cutting Machine Feeder Name Role Phone Alisia Sampson Unavailable Allergies, [...] Peripheral vascular disease NOS 443.9 Active Assessment Gout 274.9 Active Problem Benign hypertension 401.1 Active Problem BPH W/O URINARY OBSTRUCT 600.00 Active Problem Drug Use, Long-term High-Risk Medication V58.69 Active Medications Medication Code System Code Instructions Start Date End Date Status Dosage Diprolene NDC 113 dipropionate, augmented 0.05% applied topically 2 times a day 2012 1 jose rafael Avodart NDC 02090 0.5 mg orally once a day March 07, 2014 1 cap(s) amlodipine-benazepril NDC 77045 5 mg-10 mg orally once a day 1 cap (s) Fluticasone Propionate NDC 18108 50 intranasally once a day 2 spray(s) [place] NDC 0 not defined Nexium NDC 16405 40 mg orally daily Oct 09, 2014 not defined [place] NDC 91961 325 mg-10 mg orally every 8 hours January 24, 2015 1 tab(s) OxyContin NDC 6369 40mg orally Q12H January 24, 2015 1 pill Prednisone taper (60mg start) NDC 73803 10mg po daily February 09, 2015 6 times 4 days, 5 times 2 days, 4 times 2 days, 3 times 2 days, 2 times 2 days , 1 times 2 days clopidogrel NDC 63116 75 mg PO daily 1 tab aspirin NDC 0 325 PO daily 1tab nizatidine NDC 41015 150 mg PO daily 1 tab Lotrel NDC 1289 5 mg-10 mg orally once a day 1 cap(s) Elderberry NDC 0 not defined Echinacea NDC 0 not defined Xylocaine Topical NDC 70790 5% applied topically prn June 09, 2009 1 jose rafael Procedures Procedure Coding System Code Date Office/Outpatient Visit-Est CPT-4 61563 February 09, 2015 Vital Signs Date/Time: February 09, 2015 Temperature 98.2 F Blood Pressure Diastolic 84 mm Hg Blood Pressure Systolic 140 mm Hg BMI 22.02 Index Height 62 in Weight 120.4 lbs Pulse 102 /min Results No Known Results Summary Purpose eClinicalWorks Submission
--- OUTSIDE RECORDS SUMMARY | 2017-03-18 14:10 | XMS REPORT ---
Author Author Alisia Sampson [facility] e[employer] Address Unknown Phone Unavailable Care Team Providers Care Tray Filler Name Role Phone Alisia Sampson Unavailable Allergies, [...] Peripheral vascular disease NOS 443.9 Active Assessment Acute viral labyrinthitis 386.30 Active Problem Benign hypertension 401.1 Active Problem BPH W/O URINARY OBSTRUCT 600.00 Active Problem Drug Use, Long-term High-Risk Medication V58.69 Active Medications Medication Code System Code Instructions Start Date End Date Status Dosage OxyContin NDC 6369 40mg orally Q12H January 24, 2015 1 pill Elderberry NDC 0 not defined Cranberry NDC 0 not defined [place] NDC 70652 325 mg-10 mg orally every 8 hours March 13, 2015 1 tab (s) Fluticasone Propionate NDC 75087 50 intranasally once a day 2 spray(s) nizatidine NDC 76259 150 mg PO daily 1 tab clopidogrel NDC 72266 75 mg PO daily 1 tab Avodart NDC 20275 0.5 mg orally once a day March 07, 2014 1 cap(s) Lotrel NDC 1289 5 mg-10 mg orally once a day 1 cap(s) Nexium NDC 98984 40 mg orally daily Oct 09, 2014 not defined Echinacea NDC 0 not defined Prednisone taper (60mg start) NDC 42429 10mg po daily February 09, 2015 6 times 4 days, 5 times 2 days, 4 times 2 days, 3 times 2 days, 2 times 2 days , 1 times 2 days aspirin NDC 0 325 PO daily 1tab Diprolene NDC 113 dipropionate, augmented 0.05% applied topically 2 times a day 2012 1 jose rafael Xylocaine Topical NDC 35054 5% applied topically prn June 09, 2009 1 jose rafael amlodipine-benazepril NDC 79955 5 mg-10 mg orally once a day 1 cap (s) Procedures Procedure Coding System Code Date Office/Outpatient Visit-Est CPT-4 15078 March 27, 2015 Vital Signs Date/Time: March 27, 2015 Temperature 98.3 F Blood Pressure Diastolic 80 mm Hg Blood Pressure Systolic 130 mm Hg BMI 27.78 Index Height 62 in Weight 151.9 lbs Results No Known Results Summary Purpose eClinicalWorks Submission
--- OUTSIDE RECORDS SUMMARY | 2017-03-18 14:11 | XMS REPORT ---
Author Author Alisia Sampson Organization [employer] Address Unknown Phone Unavailable Care Team Providers Care Archery Equipment Hay Sorter Name Role Phone Alisia Sampson CP Unavailable [...]
--- OUTSIDE RECORDS SUMMARY | 2017-03-18 14:11 | XMS REPORT | Continuity of Care Document ---
Author Author [facility] Organization [facility] Address Unknown Phone Unavailable Care Team Providers Care Splunk Developer Name Role Phone HARPREET CHARLES Primary Care Physician [phone] Insurance Providers Payer Name Policy Number Subscriber Name Relationship Medicare [id number] Donald Balbuena 19 Self Medicaid [id number] Donald Balbuena 19 Self Problems Medical Problems Problem Onset Date Status Gastritis Unknown Active Shoulder pain, right Unknown Active Shoulder pain, right Unknown Active Medications Medication Dose Route Sig Days/Qty Instructions Order Date Discontinued Date Status [Hydrocodone] 10/08/09 05/18/11 Discontinued [Oxycontin] 10/08/09 05/18/11 Discontinued Hydrocodone Bit/Acetaminophen 1 Tab PO TWICE A DAY 05/18/11 Active Oxycodone Hcl 40 Mg PO TWICE A DAY 05/18/11 Active [Amlodipine] 05/18/11 08/22/12 Discontinued [Prevacid] 05/18/11 12/12/11 Discontinued Aspirin 81 Mg PO DAILY 10/03/11 Active Esomeprazole Mag Trihydrate 20 Mg PO DAILY 12/12/11 Active Amlodipine Besylate 10 Mg PO DAILY 08/22/12 Active Ranitidine Hcl 150 Mg PO TWICE A DAY 12/21/13 Active Cyclobenzaprine Hcl 5 Mg PO Every 8 Hours For PAIN 12 Qty 05/29/14 Active Social History Social History Problem Response Recorded Date/Time Smoking Status Current every day smoker 05/29/2014 6:46am Hx Alcohol Use Y DAILY, LIQUOR 05/29/2014 6:46am Query Response Start Date Stop Date Smoking Status Current every day smoker Hospital Discharge Instructions No hospital discharge instructions. Plan of Care No plan of care. Functional Status Query Response Date Recorded Physical Hygiene Self May 29, 2014 6:46am Disabilities Contracture May 29, 2014 6:46am Devices Used None May 29, 2014 6:46am Dressing Self May 29, 2014 6:46am Ambulation Self May 29, 2014 6:46am Diet Self May 29, 2014 6:46am Mental Status Alert May 29, 2014 8:34am Disabilities Contracture May 29, 2014 6:46am Devices Used None May 29, 2014 6:46am Physical Hygiene Self May 29, 2014 6:46am Dressing Self May 29, 2014 6:46am Ambulation Self May 29, 2014 6:46am Diet Self May 29, 2014 6:46am Allergies, Adverse Reactions, Alerts Allergen Type Severity Reaction Status Last Updated Soap Allergy Mild Active 05/29/14 tramadol HCl Adverse Reaction Unknown RASH Active 05/29/14 Povidone-iodine Allergy Mild Active 05/29/14 Oxaprozin Allergy Unknown Active 05/29/14 Immunizations Name Given Type Hx Tetanus, Diptheria, Pertussis NO SKIN DISRUPTIONS Historical Hx Tetanus, Diptheria, Pertussis NO SKIN DISRUPTIONS Historical Vital Signs Acute Vital Signs Vital Response Date/Time Temperature (Fahrenheit) 97.5 deg F (96.8 - 99.1) Temperature (Calculated Celsius) 36.32769 degrees C (36.0 - 37.3) Pulse Rate (adult) 97 bpm (60 - 100) Respiratory Rate 18 breaths/min (10 - 20) O2 Sat by Pulse Oximetry 94 % (90 - 100) Blood Pressure 142/78 mm Hg Height 5 ft 3 in Weight 141 lb Body Mass Index 25.0 kg/m^2 Results Test Source Date Result Interp. Ref. Range Comments Alanine Aminotransferase (ALT/SGPT) January 26, 2014 5:50am 28 U/L N 21- 72 Albumin January 26, 2014 5:50am 4.3 G/DL N 3.5-5.0 Albumin/Globulin Ratio January 26, 2014 5:50am 1.3 RATIO N 1.1-2.2 Alkaline Phosphatase January 26, 2014 5:50am 90 U/L N 38-126 Amylase Level December 21, 2013 9:40pm 99 U/L N 30-110 Anion Gap January 26, 2014 5:50am 11 MEQ/L N 5-15 Aspartate Amino Transf (AST/SGOT) January 26, 2014 5:50am 31 U/L N 17-59 B-Type Natriuretic Peptide May 18, 2011 12:10am 33 PG/ML N 15-100 BUN/Creatinine Ratio January 26, 2014 5:50am 17 RATIO N 6-26 Band Neutrophils # July 12, 2009 5:25pm 1.0 T/MM3 - Band Neutrophils % July 12, 2009 5:25pm 15.0 % H 0-6 Basophils # (Auto) January 26, 2014 5:50am 0.1 T/MM3 N 0-0.2 Basophils (%) (Auto) January 26, 2014 5:50am 1.9 % N 0-2 Blood Urea Nitrogen January 26, 2014 5:50am 12.0 MG/DL N 9-20 Calcium Level January 26, 2014 5:50am 9.4 MG/DL N 8.4-10.2 Calculated Osmolality January 26, 2014 5:50am 269 MOSM/KG N 261-280 Carbon Dioxide Level January 26, 2014 5:50am 26 MEQ/L N 22-30 Chloride Level January 26, 2014 5:50am 103 MEQ/L N 98-107 Conjugated Bilirubin October 25, 2012 6:45am 0.00 MG/DL N 0.00-0.30 Creatinine January 26, 2014 5:50am 0.7 MG/DL L 0.8-1.5 D-Dimer February 28, 2011 4:25pm 340 NG/ML H 0-230 <224 NG/ML=PRESUMPTIVE NEGATIVE FOR PE OR DVT>224 NG/ML=ADDITIONAL EVALUATION FOR PE OR DVT RECOMMENDED Differential Total Cells Counted July 12, 2009 5:25pm 100 % - Eosinophils # (Auto) January 26, 2014 5:50am 0.3 T/MM3 N 0-0.5 Eosinophils # (Manual) July 12, 2009 5:25pm 0.2 T/MM3 N 0-0.5 Eosinophils % (Manual) July 12, 2009 5:25pm 3.0 % N 0-4 Eosinophils (%) (Auto) January 26, 2014 5:50am 4.7 % H 0-4 Globulin January 26, 2014 5:50am 3.3 G/DL N 2.4-3.6 Glucose Level January 26, 2014 5:50am 97 MG/DL N 75-110 Hematocrit January 26, 2014 5:50am 52.8 % N 41-53 Hemoglobin January 26, 2014 5:50am 18.2 GM/DL H 13.5-17.5 Influenza Type A Antigen July 12, 2009 5:25pm Negative - Influenza Type B Antigen July 12, 2009 5:25pm Negative - Lipase December 21, 2013 9:40pm 319 U/L H 23-300 Lymphocytes # (Auto) January 26, 2014 5:50am 1.6 T/MM3 N 1-4.8 Lymphocytes # (Manual) July 12, 2009 5:25pm 1.7 T/MM3 N 1-4.8 Lymphocytes % (Manual) July 12, 2009 5:25pm 25.0 % N 23-45 Lymphocytes (%) (Auto) January 26, 2014 5:50am 25.4 % N 23-45 Mean Corpuscular Hemoglobin January 26, 2014 5:50am 33.5 UUG N 26-34 Mean Corpuscular Hemoglobin Concent January 26, 2014 5:50am 34.5 GM/DL N 31-37 Mean Corpuscular Volume January 26, 2014 5:50am 97.2 UM3 N 80-100 Mean Platelet Volume January 26, 2014 5:50am 10.3 UM3 N 9.4-12.4 Monocytes # (Auto) January 26, 2014 5:50am 0.7 T/MM3 N 0-0.8 Monocytes # (Manual) July 12, 2009 5:25pm 0.4 T/MM3 N 0-0.8 Monocytes % (Manual) July 12, 2009 5:25pm 6.0 % N 0-9.0 Monocytes (%) (Auto) January 26, 2014 5:50am 11.0 % H 0-9.0 Neutrophils # (Auto) January 26, 2014 5:50am 3.5 T/MM3 N 1.8-7.7 Neutrophils # (Manual) July 12, 2009 5:25pm 3.3 T/MM3 N 1.8-7.7 Neutrophils % (Manual) July 12, 2009 5:25pm 48.0 % N 33-66 Neutrophils (%) (Auto) January 26, 2014 5:50am 56.8 % N 33-66 Platelet Count January 26, 2014 5:50am 168 T/MM3 N 130-400 Potassium Level January 26, 2014 5:50am 4.3 MEQ/L N 3.6-5 RDW Standard Deviation January 26, 2014 5:50am 50.6 FL H 36.9-50.2 Reactive Lymphocytes July 12, 2009 5:25pm 3.0 % H 0-0 Red Blood Count January 26, 2014 5:50am 5.43 M/MM3 N 4.50-5.90 Sodium Level January 26, 2014 5:50am 140 MEQ/L N 134-144 Total Bilirubin January 26, 2014 5:50am 1.70 MG/DL H 0.20-1.30 Total Protein January 26, 2014 5:50am 7.6 G/DL N 6.3-8.2 Troponin I January 26, 2014 5:50am < 0.012 ng/ml 0-0.12 Unconjugated Bilirubin October 25, 2012 6:45am 0.70 MG/DL N 0.00-1.10 Urine Bacteria October 25, 2012 7:20am None seen - Has specimen been collected/obtained? Y Urine Bilirubin January 26, 2014 6:45am Negative - Has specimen been collected/obtained? Y Urine Blood January 26, 2014 6:45am Negative - Has specimen been collected/obtained? Y Urine Collection Type January 26, 2014 6:45am Cleancatch-midstream - Has specimen been collected/obtained? Y Urine Color January 26, 2014 6:45am Martine - Has specimen been collected /obtained? Y Urine Culture Indicated October 25, 2012 7:20am Cult not indicated - Has specimen been collected/obtained? Y Urine Glucose (UA) January 26, 2014 6:45am Negative - Has specimen been collected/obtained? Y Urine Ketones January 26, 2014 6:45am Negative - Has specimen been collected/obtained? Y Urine Leukocyte Esterase January 26, 2014 6:45am Negative - Has specimen been collected/obtained? Y Urine Nitrite January 26, 2014 6:45am Negative - Has specimen been collected/obtained? Y Urine Protein January 26, 2014 6:45am Negative - Has specimen been collected/obtained? Y Urine RBC October 25, 2012 7:20am 1-3 /HPF - Has specimen been collected/obtained? Y Urine Specific [place] January 26, 2014 6:45am 1.015 - Has specimen been collected/obtained? Y Urine Turbidity January 26, 2014 6:45am Clear - Has specimen been collected/obtained? Y Urine Urobilinogen January 26, 2014 6:45am 1.0 EU/DL - Has specimen been collected/obtained? Y Urine WBC October 25, 2012 7:20am 0-1 /HPF - Has specimen been collected/obtained? Y Urine pH January 26, 2014 6:45am 6.0 - Has specimen been collected/ obtained? Y White Blood Count January 26, 2014 5:50am 6.2 T/MM3 N 4.5-11.0 Chemistry Specimen Hemolysis January 26, 2014 5:50am < 15 0-25 0-25: No Hemolysis.26-70: Slight Hemolysis - can falsely elevate K and Urine Protein. 71-285: Moderate Hemolysis - can falsely elevate K, Troponin I, CA 19-9, PTH, CSF GLucose, and Urine Protein, and can falsely decrease Phenytoin. 286-999: Gross Hemolysis - can falsely elevate K, Troponin I, CA 19-9, PTH, CSF Glucose, and Urine Protine, and can falsely decrease Phenytoin. Recommend specimen recollection. Urinalysis Comment January 26, 2014 6:45am Microscopic not ind. - Has specimen been collected/obtained? Y Atypical/Reactive Lymphocytes July 12, 2009 5:25pm 0.2 T/MM3 H 0-0 Turbidity January 26, 2014 5:50am < 20 0-20 Glomerular Filtration Rate Calc January 26, 2014 5:50am 116 - Immature Granulocyte # (Auto) January 26, 2014 5:50am 0.01 T/MM3 N 0.00- 0.03 Immature Granulocyte % (Auto) January 26, 2014 5:50am 0.2 % N 0.0-0.5 Icterus Index January 26, 2014 5:50am < 2 0-7 Procedures No known history of procedures. Encounters Encounter Location Date/Time Departed Emergency Room [facility] 05/29/14 6:18am Recent Diagnosis
--- OUTSIDE RECORDS SUMMARY | 2017-03-18 14:11 | XMS REPORT ---
Author Alisia Khan [facility] eClinicalWorks Address Unknown Phone Unavailable Care Team Providers Care Retail Security Professional Name Role Phone Alisia Sampson Unavailable Allergies, [...] Peripheral vascular disease NOS 443.9 Active Assessment Right wrist pain 719.43 Active Problem Benign hypertension 401.1 Active Problem BPH W/O URINARY OBSTRUCT 600.00 Active Assessment Panic Attack 300.01 Active Problem Drug Use, Long-term High-Risk Medication V58.69 Active Medications Medication Code System Code Instructions Start Date End Date Status Dosage lorazepam NDC 37552 0.5 mg orally QD prn panic attack April 25, 2015 1 tab(s) Lotrel NDC 1289 5 mg-10 mg orally once a day 1 cap(s) Elderberry NDC 0 not defined Cranberry NDC 0 not defined OxyContin NDC 6369 40mg orally Q12H January 24, 2015 1 pill Diprolene NDC 113 dipropionate, augmented 0.05% applied topically 2 times a day 2012 1 jose rafael Xylocaine Topical NDC 22254 5% applied topically prn June 09, 2009 1 jose rafael nizatidine NDC 39404 150 mg PO daily 1 tab Avodart NDC 94031 0.5 mg orally once a day March 07, 2014 1 cap(s) Echinacea NDC 0 not defined [place] NDC 53133 325 mg-10 mg orally every 8 hours April 13, 2015 1 tab(s) aspirin NDC 0 325 PO daily 1tab amlodipine-benazepril NDC 09753 5 mg-10 mg orally once a day 1 cap (s) [place] [address] 50 intranasally once a day 2 spray([place]) [place] [address] 40 mg orally daily Oct 09, 2014 not defined clopidogrel NDC 91283 75 mg PO daily 1 tab Procedures Procedure Coding System Code Date Office/Outpatient Visit-Est CPT-4 72819 April 25, 2015 X-Ray Exam of Wrist CPT-4 48341 April 25, 2015 Vital Signs Date/Time: April 25, 2015 Temperature 98.8 F Blood Pressure Diastolic 80 mm Hg Blood Pressure Systolic 132 mm Hg BMI 27.49 Index Height 62 in Weight 150.3 lbs Results No Known Results Summary Purpose eClinicalWorks Submission
--- OUTSIDE RECORDS SUMMARY | 2017-03-18 14:11 | XMS REPORT ---
Author Author Alisia Sampson Organization eClinicalWorks Address Unknown Phone Unavailable Care Team Providers Care Banquet Chef Name Role Phone Alisia Sampson CP Unavailable [...]
--- OUTSIDE RECORDS SUMMARY | 2017-03-18 14:11 | XMS REPORT ---
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 Active Problem Drug Use, Long-term High-Risk Medication V58.69 Active Medications Medication Code System Code Instructions Start Date End Date Status Dosage lorazepam NDC 20290 0.5 mg orally QD prn panic attack May 23, 2015 1 tab(s) nizatidine NDC 19299 150 mg PO daily 1 tab Echinacea NDC 0 not defined OxyContin NDC 6369 40mg orally Q12H May 23, 2015 1 pill Xylocaine Topical NDC 08288 5% applied topically prn June 09, 2009 1 jose rafael clopidogrel NDC 69879 75 mg PO daily Sep 22, 2015 1 tab Fluticasone Propionate NDC 33372 50 intranasally once a day 2 spray(s) prednisone NDC 27899 10 mg orally 6 tabs a day for 5 days 6 tab(s) Nexium NDC 49045 40 mg orally daily Oct 09, 2014 not defined Elderberry NDC 0 not defined [place] NDC 66368 325 mg-10 mg orally every 8 hours May 23, 2015 1 tab(s) Spiriva NDC 81414 18 mcg inhaled once a day Nov 09, 2015 1 ea Cranberry NDC 0 not defined amlodipine-benazepril NDC 10001 5 mg-10 mg orally once a day 1 cap (s) aspirin NDC 0 325 PO daily 1tab Procedures Procedure Coding System Code Date Office/Outpatient Visit-Est CPT-4 40123 Nov 09, 2015 Vital Signs Date/Time: Nov 09, 2015 Temperature 99.0 F Blood Pressure Diastolic 78 mm Hg Blood Pressure Systolic 120 mm Hg BMI 28.57 Index Height 62 in Weight 156.2 lbs Pulse 98 /min Results No Known Results Summary Purpose eClinicalWorks Submission
--- OUTSIDE RECORDS SUMMARY | 2017-03-18 14:11 | XMS REPORT ---
Author Alisia Khan [facility] eClinicalWorks Address Unknown Phone Unavailable Care Team Providers Care Field Horticultural Specialty Grower Name Role Phone Alisia Sampson Unavailable Allergies, [...] Peripheral vascular disease NOS 443.9 Active Assessment Bilateral ganglion cysts of wrists M67.431 Active Problem Benign hypertension 401.1 Active Problem BPH W/O URINARY OBSTRUCT 600.00 Active Assessment Abdominal distension R14.0 Active Problem Drug Use, Long-term High-Risk Medication V58.69 Active Medications Medication Code System Code Instructions Start Date End Date Status Dosage clopidogrel NDC 44021 75 mg PO daily 1 tab Nexium NDC 26776 40 mg orally daily Oct 09, 2014 not defined amlodipine-benazepril NDC 39726 5 mg-10 mg orally once a day 1 cap (s) Diprolene NDC 113 dipropionate, augmented 0.05% applied topically 2 times a day 2012 1 jose rafael MiraLax NDC 20996 - orally bid Aug 15, 2015 17 g Fluticasone Propionate NDC 37568 50 intranasally once a day 2 spray(s) Lotrel NDC 1289 5 mg-10 mg orally once a day 1 cap(s) nizatidine NDC 38684 150 mg PO daily 1 tab Elderberry NDC 0 not defined Xylocaine Topical NDC 91032 5% applied topically prn June 09, 2009 1 jose rafael OxyContin NDC 6369 40mg orally Q12H May 23, 2015 1 pill lorazepam NDC 41890 0.5 mg orally QD prn panic attack May 23, 2015 1 tab(s) Avodart NDC 74203 0.5 mg orally once a day March 07, 2014 1 cap(s) [employer] NDC 64381 325 mg-10 mg orally every 8 hours May 23, 2015 1 tab(s) Cranberry NDC 0 not defined aspirin NDC 0 325 PO daily 1tab Echinacea NDC 0 not defined Procedures Procedure Coding System Code Date Office/Outpatient Visit-Est CPT-4 17160 Aug 15, 2015 Flu Shot-Adult CPT-4 04741 Aug 15, 2015 X-Ray Exam of Abdomen CPT-4 77803 Aug 15, 2015 Immunization Admin CPT-4 96979 Aug 15, 2015 Vital Signs Date/Time: Aug 15, 2015 Temperature 99.0 F Blood Pressure Diastolic 60 mm Hg Blood Pressure Systolic 114 mm Hg BMI 28.38 Index Height 62 in Weight 155.2 lbs Pulse 64 /min Results No Known Results Immunizations Vaccine Administration Date Flu Shot-Adult Aug 15, 2015 Summary Purpose eClinicalWorks Submission
--- OUTSIDE RECORDS SUMMARY | 2017-03-18 14:11 | XMS REPORT ---
Author Author Alisia Sampson Organization eClinicalWorks Address Unknown Phone Unavailable Care Team Providers Care Executive Producer Name Role Phone Alisia Sampson CP Unavailable [...] Instructions Start Date End Date Status Dosage [place] NDC 73204 325 mg-10 mg orally every 8 hours April 24, 2016 1 tab(s) amoxicillin NDC 64056 875 mg orally 2 times a day May 07, 2016 1 tab(s) OxyContin NDC 6369 40mg orally Q12H April 24, 2016 1 pill lorazepam NDC 95038 0.5 mg orally QD prn panic attack May 23, 2015 1 tab(s) Results No Known Results Summary Purpose eClinicalWorks Submission
--- OUTSIDE RECORDS SUMMARY | 2017-03-18 14:11 | XMS REPORT ---
Author Alisia Khan [facility] eClinicalWorks Address Unknown Phone Unavailable Care Team Providers Care Product Demonstrator Name Role Phone Alisia Samspon CP Unavailable Allergies, Adverse Reactions, Alerts Substance Reaction Event Type Ultram Info Not Available Drug Allergy Problems Problem Type Condition ICD-9 Code Onset Dates Condition Status Problem Drug Use, Long-term High-Risk Medication V58.69 Active Problem Dysphagia 438.82 Active Problem Anklosing spondylitis 720.0 Active Problem Tobacco abuse 305.1 Active Problem Tobacco abuse counseling V65.42 Active Problem CAD (coronary artery disease) 414.9 Active Problem Tobacco use disorder 305.1 Active Problem GERD 530.81 Active Problem Peripheral vascular disease NOS 443.9 Active Problem Hypercholesterolemia NOS 272.4 Active Assessment Hyperlipidemia 272.4 Active Assessment Benign hypertension 401.1 Active Assessment Tobacco abuse 305.1 Active Assessment CAD (coronary artery disease) 414.9 Active Assessment Drug Use, Long-term High-Risk Medication V58.69 Active Problem Benign hypertension 401.1 Active Assessment Tobacco abuse counseling V65.42 Active Problem BPH W/O URINARY OBSTRUCT 600.00 Active Medications Medication Code System Code Instructions Start Date End Date Status Dosage Fluticasone Propionate NDC 32160 50 mcg/inh intranasally once a day Sep Active 2 spray(s) Cranberry NDC 0 Active not defined Diprolene NDC 113 dipropionate, augmented 0.05% applied topically 2 times a day 2012 Active 1 jose rafael Metoprolol Tartrate NDC 1073 25 mg PO BID Active 1 tab ranitidine NDC 87895 150 Milligram Aug 29, 2014 Active TAKE 1 CAPSULE BY MOUTH TWICE DAILY Xylocaine Topical NDC 51861 5% applied topically prn June 09, 2009 Active 1 jose rafael Promethazine with Codeine NDC 63705 10 mg-6.25 mg/5 mL orally every 6 hours Aug 15, 2014 Active 5 mL Echinacea NDC 0 Active not defined Elderberry NDC 0 Active not defined clopidogrel NDC 75638 75 mg PO daily Active 1 tab aspirin NDC 0 325 PO daily Active 1tab OxyContin NDC 6369 40mg orally Q12H Active 1 pill [place] NDC 67610 325 mg-10 mg orally every 8 hours Jun 22, 2014 Active 1 tab(s) gabapentin NDC 65947 300 mg orally 3 times a day January 18, 2014 Active 1 cap(s) Nexium NDC 60905 40 mg orally daily Active not defined levofloxacin NDC 49220 500 mg orally every 24 hours Aug 15, 2014 Active 1 tab(s) Lotrel NDC 1289 5 mg-10 mg orally once a day Aug 19, 2014 Active 1 cap (s) Avodart NDC 83837 0.5 mg orally once a day March 07, 2014 Active 1 cap (s) Procedures Procedure Coding System Code Date Office/Outpatient Visit-Est CPT-4 23076 Sep 16, 2014 Vital Signs Date/Time: Sep 16, 2014 Temperature 98.5 F Blood Pressure Diastolic 80 mm Hg Blood Pressure Systolic 120 mm Hg BMI 21.57 Index Height 69 in Weight 146.1 lbs Pulse 105 /min Results No Known Results Summary Purpose eClinicalWorks Submission
--- OUTSIDE RECORDS SUMMARY | 2017-03-18 14:11 | XMS REPORT ---
Author Alisia Khan Organization eClinicalWorks Address Unknown Phone Unavailable Care Team Providers Care Assessment Manager Name Role Phone Alisia Sampson CP [...] Instructions Start Date End Date Status Dosage amoxicillin NDC 46837 875 mg orally 2 times a day Jun 18, 2016 1 tab (s) Results No Known Results Summary Purpose eClinicalWorks Submission
--- OUTSIDE RECORDS SUMMARY | 2017-03-18 14:11 | XMS REPORT ---
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
--- OUTSIDE RECORDS SUMMARY | 2017-03-18 14:11 | XMS REPORT ---
Author Author Alisia Sampson Organization eClinicalWorks Address Unknown Phone Unavailable Care Team Providers Care Emergency Medicine Nurse Practitioner Name Role Phone Alisia Sampson Unavailable Allergies [...] Instructions Start Date End Date Status Dosage [place] NDC 74830 325 mg-10 mg orally every 8 hours Oct 20, 2014 Active 1 tab(s) OxyContin NDC 6369 40mg orally Q12H Oct 20, 2014 Active 1 pill Results No Known Results Summary Purpose eClinicalWorks Submission
--- OUTSIDE RECORDS SUMMARY | 2017-03-18 14:11 | XMS REPORT ---
Author Author Alisia Sampson Organization eClinicalWorks Address Unknown Phone Unavailable Care Team Providers Care Soil Chemist Name Role Phone Alisia Sampson CP Unavailable [...] Dysphagia 438.82 Active Medications No Known Medications Results No Known Results Summary Purpose eClinicalWorks Submission
--- OUTSIDE RECORDS SUMMARY | 2017-03-18 14:11 | XMS REPORT ---
Author Author Alisia Sampson Organization eClinicalWorks Address Unknown Phone Unavailable Care Team Providers Care Underwear Finisher Name Role Phone Alisia Sampson CP Unavailable [...] 6369 40mg orally Q12H Active 1 pill Results No Known Results Summary Purpose eClinicalWorks Submission
--- OUTSIDE RECORDS SUMMARY | 2017-03-18 14:11 | XMS REPORT ---
Author Author Alisia Sampson eClinicalWorks Address Unknown Phone Unavailable Care Team Providers Care Visitor Services Information Assistant Name Role Phone Alisia Sampson CP Unavailable [...] vascular disease NOS 443.9 Active Assessment Acute sinusitis, unspecified J01.90 Active Problem Benign hypertension 401.1 Active Problem BPH W/O URINARY OBSTRUCT 600.00 Active Problem Drug Use, Long-term High-Risk Medication V58.69 Active Medications Medication Code System Code Instructions Start Date End Date Status Dosage prednisone NDC 82564 10 mg orally 6 tabs a day for 5 days 6 tab(s) amoxicillin-clavulanate NDC 70878 875 mg-125 mg orally every 12 hours Oct 17, 2015 1 tab(s) aspirin NDC 0 325 PO daily 1tab clopidogrel NDC 20554 75 mg PO daily Sep 22, 2015 1 tab [place] NDC 17250 325 mg-10 mg orally every 8 hours May 23, 2015 1 tab(s) amlodipine-benazepril NDC 37728 5 mg-10 mg orally once a day 1 cap (s) Echinacea NDC 0 not defined benzonatate NDC 18652 200 mg orally 3 times a day Oct 17, 2015 1 cap (s) Cranberry NDC 0 not defined OxyContin NDC 6369 40mg orally Q12H May 23, 2015 1 pill Nexium NDC 65894 40 mg orally daily Oct 09, 2014 not defined Elderberry NDC 0 not defined Procedures Procedure Coding System Code Date Office/Outpatient Visit-Est CPT-4 84073 Oct 16, 2015 Vital Signs Date/Time: Oct 16, 2015 Temperature 98.8 F Blood Pressure Diastolic 70 mm Hg Blood Pressure Systolic 116 mm Hg BMI 28.68 Index Height 62 in Weight 156.8 lbs Pulse 118 /min Results No Known Results Summary Purpose eClinicalWorks Submission
--- OUTSIDE RECORDS SUMMARY | 2017-03-18 14:11 | XMS REPORT ---
Author Author Alisia Sampson Organization [employer] Address Unknown Phone Unavailable Care Team Providers Care Button Cutting Machine Operator Name Role Phone Alisia Sampson [...] Instructions Start Date End Date Status Dosage [facility] 58671 325 mg-10 mg orally every 8 hours March 13, 2015 1 tab (s) Results No Known Results Summary Purpose eClinicalWorks Submission
--- OUTSIDE RECORDS SUMMARY | 2017-03-18 14:11 | XMS REPORT ---
Author Author Darren Fraser Organization [employer] Address Unknown Phone Unavailable Care Team Providers Care Bobbin Dumper Name Role Phone Darren Fraser CP Unavailable Allergies No Known Allergies Problems [...] Instructions Start Date End Date Status Dosage meclizine [facility] 15167 25 mg orally 3 times a day April 03, 2015 1 tab(s) Results No Known Results Summary Purpose eClinicalWorks Submission
--- OUTSIDE RECORDS SUMMARY | 2017-03-18 14:11 | XMS REPORT ---
Author Author Alisia Sampson Organization [employer] Address Unknown Phone Unavailable Care Team Providers Care Aluminum Pourer Name Role Phone Alisia Sampson CP Unavailable [...] 274.9 Active Problem Coronary artery disease involving [place] coronary artery of [place] heart without angina pectoris I25.10 Active Problem Ankylosing spondylitis M45.9 Active Medications Medication Code System Code Instructions Start Date End Date Status Dosage diazepam NDC 07690 5 mg orally 30 minutes prior to proceduren Sep 11, 2016 1 -2 tabs Results No Known Results Summary Purpose eClinicalWorks Submission
--- OUTSIDE RECORDS SUMMARY | 2017-03-18 14:11 | XMS REPORT ---
Author Alisia Khan [employer] Address Unknown Phone Unavailable Care Team Providers Care Operating Room Tech Name Role Phone Alisia Sampson CP Unavailable [...] Peripheral vascular disease NOS 443.9 Active Assessment Other secondary acute gout of left wrist M10.432 Active Problem Benign hypertension 401.1 Active Problem BPH W/O URINARY OBSTRUCT 600.00 Active Assessment Left wrist pain M25.532 Active Problem Drug Use, Long-term High-Risk Medication V58.69 Active Medications Medication Code System Code Instructions Start Date End Date Status Dosage fluticasone nasal NDC 43270 50 mcg/inh intranasally once a day PRN April 05, 2016 1 to 2 spray(s) lorazepam NDC 43996 0.5 mg orally QD prn panic attack May 23, 2015 1 tab(s) Elderberry NDC 0 not defined Cetirizine Hydrochloride NDC 240849 10 mg orally once a day April 05, 2016 1 tab(s) Spiriva NDC 69848 18 mcg inhaled once a day Nov 09, 2015 1 ea Prednisone taper (60mg start) NDC 60172 10 mg orally once a day Jun 24, 2016 60mg daily x2, then 50mg daily x1, then 40mg daily x1, then 30mg daily x1, then 20mg daily x1, then 10mg daily x1, then 5mg daily x2, then stop Echinacea NDC 0 not defined aspirin NDC 0 325 PO daily 1tab Lotrel NDC 1289 5 mg-10 mg orally once a day 1 cap(s) clopidogrel NDC 97605 75 mg PO daily 1 tab [place] NDC 27424 325 mg-10 mg orally every 8 hours April 24, 2016 1 tab(s) Cranberry NDC 0 not defined ketoconazole NDC 45186 200 mg orally once a day May 10, 2016 1 tab( s) amoxicillin NDC 36183 875 mg orally 2 times a day Jun 18, 2016 1 tab (s) OxyContin NDC 6369 40mg orally Q12H April 24, 2016 1 pill Procedures Procedure Coding System Code Date Automated Hemogram-CBC w/Diff CPT-4 27329 Jun 24, 2016 Assay of Blood/Uric Acid CPT-4 30806 Jun 24, 2016 X-Ray Exam of Wrist CPT-4 84662 Jun 24, 2016 Office/Outpatient Visit-Est CPT-4 52562 Jun 24, 2016 VENIPUNCT, ROUTINE* CPT-4 33705 Jun 24, 2016 Vital Signs Date/Time: Jun 24, 2016 Temperature 99.4 F Blood Pressure Diastolic 80 mm Hg Blood Pressure Systolic 118 mm Hg BMI 27.67 Index Height 62 in Weight 151.3 lbs Pulse 120 /min Results Name Result Date Reference Range Unit Abnormality Flag Uric Acid, Serum ----URIC ACID 6.50 83284164 5.80-7.60 mg/dL CBC With Differential/Platelet ----MCHC 34.8 [id number] 31.8-35.4 g/dL ----MCH 32.8 [id number] 27.0-31.2 PG H ----PLT 219 [id number] 142-424 x10^3/UL ----RDW 17.4 [id number] 11.6-14.8 % H ----HCT 54.9 [id number] 43.5-53.7 % H ----MCV 94.3 [id number] 80.0-97.0 fL ----RBC 5.82 [id number] 4.69-6.13 x10^6/UL ----HGB 19.1 [id number] 13.5-18.1 g/dL H ----WBC 9.9 [id number] 4.6-10.2 x10^3/UL Summary Purpose eClinicalWorks Submission
--- OUTSIDE RECORDS SUMMARY | 2017-03-18 14:11 | XMS REPORT ---
Author Author Alisia Sampson Organization [employer] Address Unknown Phone Unavailable Care Team Providers Care Roofing Tile Sorter Name Role Phone Alisia Sampson CP [...] Instructions Start Date End Date Status Dosage [place] NDC 43269 325 mg-10 mg orally every 8 hours May 23, 2015 1 tab(s) lorazepam NDC 63263 0.5 mg orally QD prn panic attack May 23, 2015 1 tab(s) OxyContin NDC 6369 40mg orally Q12H May 23, 2015 1 pill Results No Known Results Summary Purpose eClinicalWorks Submission
--- OUTSIDE RECORDS SUMMARY | 2017-03-18 14:12 | XMS REPORT | Continuity of Care Document ---
Author Author [facility] Organization [facility] Address Unknown Phone Unavailable Care Team Providers Care Encoding Machine Operator Name Role Phone HARPREET CHARLES Primary Care Physician [phone] Insurance Providers Payer Name Policy Number Subscriber Name Relationship Medicare [id number] Donald Balbuena 18 Self Medicaid [id number] Donald Balbuena 18 Self Problems Medical Problems Problem Onset Date Status Gastritis Unknown Active Shoulder pain, right Unknown Active Shoulder pain, right Unknown Active COPD exacerbation Unknown Active Medications Medication Dose Route Sig Days/Qty Instructions Order Date Discontinued Date Status [Hydrocodone] 10/08/09 05/18/11 Discontinued [Oxycontin] 10/08/09 05/18/11 Discontinued Hydrocodone Bit/Acetaminophen 1 Tab PO TWICE A DAY 05/18/11 Active Oxycodone Hcl 40 Mg PO TWICE A DAY 05/18/11 Active [Amlodipine] 05/18/11 08/22/12 Discontinued [Prevacid] 05/18/11 12/12/11 Discontinued Aspirin 81 Mg PO DAILY 10/03/11 Active Amlodipine Besylate 10 Mg PO DAILY 08/22/12 Active Ranitidine Hcl 150 Mg PO TWICE A DAY 12/21/13 Active Prednisone 20 Mg PO DIRECTED 18 Qty Take 3 pills for 3 days THEN, Active Social History Social History Problem Response Recorded Date/Time Hx Alcohol Use Y DAILY, LIQUOR 10/22/2014 5:11am Tobacco Usage smoke 05/29/2014 7:04am Query Response Start Date Stop Date Smoking Status Current every day smoker Hospital Discharge Instructions No hospital discharge instructions. Plan of Care No plan of care. Functional Status Query Response Date Recorded Physical Hygiene Self October 22, 2014 5:11am Disabilities None October 22, 2014 5:11am Devices Used None October 22, 2014 5:11am Dressing Self October 22, 2014 5:11am Ambulation Self October 22, 2014 5:11am Diet Self October 22, 2014 5:11am Mental Status Alert October 22, 2014 7:12am Disabilities None October 22, 2014 5:11am Devices Used None October 22, 2014 5:11am Physical Hygiene Self October 22, 2014 5:11am Dressing Self October 22, 2014 5:11am Ambulation Self October 22, 2014 5:11am Diet Self October 22, 2014 5:11am Allergies, Adverse Reactions, Alerts Allergen Type Severity Reaction Status Last Updated Soap Allergy Mild Active 10/22/14 tramadol HCl Adverse Reaction Unknown RASH Active 10/22/14 Povidone-iodine Allergy Mild Active 10/22/14 Oxaprozin Allergy Unknown Active 10/22/14 Immunizations Name Given Type Hx Tetanus, Diptheria, Pertussis NO SKIN DISRUPTIONS Historical Hx Tetanus, Diptheria, Pertussis NO SKIN DISRUPTIONS Historical Vital Signs Acute Vital Signs Vital Response Date/Time Temperature (Fahrenheit) 97.2 deg F (96.8 - 99.1) Temperature (Calculated Celsius) 36.94844 degrees C (36.0 - 37.3) Pulse Rate (adult) 76 bpm (60 - 100) Respiratory Rate 15 breaths/min (10 - 20) O2 Sat by Pulse Oximetry 94 % (90 - 100) Blood Pressure 134/75 mm Hg Height 5 ft 0 in Weight 145 lb Body Mass Index 28.0 kg/m^2 Results Test Source Date Result Interp. Ref. Range Comments Activated Partial Thromboplast Time October 22, 2014 5:35am 34.9 SEC N 24-36 Ordering r/o VTE Yes Alanine Aminotransferase (ALT/SGPT) October 22, 2014 5:35am 22 U/L N 21 -72 Albumin October 22, 2014 5:35am 4.2 G/DL N 3.5-5.0 Albumin/Globulin Ratio October 22, 2014 5:35am 1.2 RATIO N 1.1-2.2 Alkaline Phosphatase October 22, 2014 5:35am 106 U/L N 38-126 Amylase Level December 21, 2013 9:40pm 99 U/L N 30-110 Anion Gap October 22, 2014 5:35am 8 MEQ/L N 5-15 Aspartate Amino Transf (AST/SGOT) October 22, 2014 5:35am 21 U/L N 17- 59 B-Type Natriuretic Peptide May 18, 2011 12:10am 33 PG/ML N 15-100 BUN/Creatinine Ratio October 22, 2014 5:35am 15 RATIO N 6-26 Band Neutrophils # July 12, 2009 5:25pm 1.0 T/MM3 - Band Neutrophils % July 12, 2009 5:25pm 15.0 % H 0-6 Basophils # (Auto) October 22, 2014 5:35am 0.1 T/MM3 N 0-0.2 Basophils (%) (Auto) October 22, 2014 5:35am 1.6 % N 0-2 Blood Urea Nitrogen October 22, 2014 5:35am 12.0 MG/DL N 9-20 Calcium Level October 22, 2014 5:35am 9.9 MG/DL N 8.4-10.2 Calculated Osmolality October 22, 2014 5:35am 266 MOSM/KG N 261-280 Carbon Dioxide Level October 22, 2014 5:35am 27 MEQ/L N 22-30 Chloride Level October 22, 2014 5:35am 103 MEQ/L N 98-107 Conjugated Bilirubin October 25, 2012 6:45am 0.00 MG/DL N 0.00-0.30 Creatinine October 22, 2014 5:35am 0.8 MG/DL N 0.8-1.5 D-Dimer October 22, 2014 5:35am 392 NG/ML H 0-230 <230 NG/ML D-DU= PRESUMPTIVE NEGATIVE FOR PE OR DVT>230 NG/ML D-DU=ADDITIONAL EVAL FOR PE OR DVT RECOMMENDED Differential Total Cells Counted July 12, 2009 5:25pm 100 % - Eosinophils # (Auto) October 22, 2014 5:35am 0.4 T/MM3 N 0-0.5 Eosinophils # (Manual) July 12, 2009 5:25pm 0.2 T/MM3 N 0-0.5 Eosinophils % (Manual) July 12, 2009 5:25pm 3.0 % N 0-4 Eosinophils (%) (Auto) October 22, 2014 5:35am 5.1 % H 0-4 Globulin October 22, 2014 5:35am 3.4 G/DL N 2.4-3.6 Glucose Level October 22, 2014 5:35am 102 MG/DL N 75-110 Hematocrit October 22, 2014 5:35am 46.4 % N 41-53 Hemoglobin October 22, 2014 5:35am 15.5 GM/DL N 13.5-17.5 Influenza Type A Antigen October 22, 2014 6:30am Negative - Negative for Flu A protein antigen. Assay sensitivity is90%. Influenza Type B Antigen October 22, 2014 6:30am Negative - Negative for Flu B protein antigen. Assay sensitivity is90%. Lipase December 21, 2013 9:40pm 319 U/L H 23-300 Lymphocytes # (Auto) October 22, 2014 5:35am 1.5 T/MM3 N 1-4.8 Lymphocytes # (Manual) July 12, 2009 5:25pm 1.7 T/MM3 N 1-4.8 Lymphocytes % (Manual) July 12, 2009 5:25pm 25.0 % N 23-45 Lymphocytes (%) (Auto) October 22, 2014 5:35am 19.3 % L 23-45 Mean Corpuscular Hemoglobin October 22, 2014 5:35am 33.0 UUG N 26-34 Mean Corpuscular Hemoglobin Concent October 22, 2014 5:35am 33.4 GM/DL N 31-37 Mean Corpuscular Volume October 22, 2014 5:35am 98.7 UM3 N 80-100 Mean Platelet Volume October 22, 2014 5:35am 10.4 UM3 N 9.4-12.4 Monocytes # (Auto) October 22, 2014 5:35am 1.0 T/MM3 H 0-0.8 Monocytes # (Manual) July 12, 2009 5:25pm 0.4 T/MM3 N 0-0.8 Monocytes % (Manual) July 12, 2009 5:25pm 6.0 % N 0-9.0 Monocytes (%) (Auto) October 22, 2014 5:35am 12.8 % H 0-9.0 Neutrophils # (Auto) October 22, 2014 5:35am 4.7 T/MM3 N 1.8-7.7 Neutrophils # (Manual) July 12, 2009 5:25pm 3.3 T/MM3 N 1.8-7.7 Neutrophils % (Manual) July 12, 2009 5:25pm 48.0 % N 33-66 Neutrophils (%) (Auto) October 22, 2014 5:35am 60.9 % N 33-66 Platelet Count October 22, 2014 5:35am 168 T/MM3 N 130-400 Potassium Level October 22, 2014 5:35am 3.7 MEQ/L N 3.6-5 Prothromb Time International Ratio October 22, 2014 5:35am 1.02 N 0.81- 1.09 THERAPUTIC RANGE=2.00-3.00 FOR ANTI-THROMBOSIS THERAPUTIC RANGE=2.50- 3.50 FOR IMPLANTED VALVE RDW Standard Deviation October 22, 2014 5:35am 51.2 FL H 36.9-50.2 Reactive Lymphocytes July 12, 2009 5:25pm 3.0 % H 0-0 Red Blood Count October 22, 2014 5:35am 4.70 M/MM3 N 4.50-5.90 Sodium Level October 22, 2014 5:35am 138 MEQ/L N 134-144 Total Bilirubin October 22, 2014 5:35am 1.50 MG/DL H 0.20-1.30 Total Protein October 22, 2014 5:35am 7.6 G/DL N 6.3-8.2 Troponin I October 22, 2014 5:35am < 0.012 ng/ml 0-0.12 Unconjugated Bilirubin October 25, 2012 6:45am 0.70 MG/DL N 0.00-1.10 Urine Bacteria October 25, 2012 7:20am None seen - Has specimen been collected/obtained? Y Urine Bilirubin October 22, 2014 6:30am Negative - Has specimen been collected/obtained? Y Urine Blood October 22, 2014 6:30am Trace-intact H - Has specimen been collected/obtained? Y Urine Collection Type October 22, 2014 6:30am Cleancatch-midstream - Has specimen been collected/obtained? Y Urine Color October 22, 2014 6:30am Yellow - Has specimen been collected/obtained? Y Urine Culture Indicated October 25, 2012 7:20am Cult not indicated - Has specimen been collected/obtained? Y Urine Glucose (UA) October 22, 2014 6:30am Negative - Has specimen been collected/obtained? Y Urine Ketones October 22, 2014 6:30am Negative - Has specimen been collected/obtained? Y Urine Leukocyte Esterase October 22, 2014 6:30am Trace H - Has specimen been collected/obtained? Y Urine Nitrite October 22, 2014 6:30am Negative - Has specimen been collected/obtained? Y Urine Protein October 22, 2014 6:30am Negative - Has specimen been collected/obtained? Y Urine RBC October 25, 2012 7:20am 1-3 /HPF - Has specimen been collected/obtained? Y Urine Specific [place] October 22, 2014 6:30am 1.010 L - Has specimen been collected/obtained? Y Urine Turbidity October 22, 2014 6:30am Clear - Has specimen been collected/obtained? Y Urine Urobilinogen October 22, 2014 6:30am 0.2 EU/DL - Has specimen been collected/obtained? Y Urine WBC October 25, 2012 7:20am 0-1 /HPF - Has specimen been collected/obtained? Y Urine pH October 22, 2014 6:30am 6.0 - Has specimen been collected/ obtained? Y White Blood Count October 22, 2014 5:35am 7.7 T/MM3 N 4.5-11.0 Chemistry Specimen Hemolysis October 22, 2014 5:35am < 15 0-25 0-25 : No Hemolysis.26-70: Slight Hemolysis - can falsely elevate K and Urine Protein. 71-285: Moderate Hemolysis - can falsely elevate K, Troponin I, CA 19-9, PTH, CSF GLucose, and Urine Protein, and can falsely decrease Phenytoin. 286-999: Gross Hemolysis - can falsely elevate K, Troponin I, CA 19-9, PTH, CSF Glucose, and Urine Protine, and can falsely decrease Phenytoin. Recommend specimen recollection. Urinalysis Comment October 22, 2014 6:30am Microscopic not ind. - Has specimen been collected/obtained? Y Atypical/Reactive Lymphocytes July 12, 2009 5:25pm 0.2 T/MM3 H 0-0 Turbidity October 22, 2014 5:35am < 20 0-20 Glomerular Filtration Rate Calc October 22, 2014 5:35am 99 - Immature Granulocyte # (Auto) October 22, 2014 5:35am 0.02 T/MM3 N 0.00 -0.03 Immature Granulocyte % (Auto) October 22, 2014 5:35am 0.3 % N 0.0-0.5 Venous Blood Lactate October 22, 2014 5:45am 0.8 MMOL/L N 0.6-2.2 Icterus Index October 22, 2014 5:35am < 2 0-7 CB-Xkp-O-Type Natriuretic Peptide October 22, 2014 5:35am 620 PG/ML H 0 -175 Rule in cut points: <50 years old=450; 50-75 years old=900; >75 years old=1800; When utilizing ProBNP rule-in cut points, adjustment for impaired renal function is typically not required. Procedures No known history of procedures. Encounters Encounter Location Date/Time Departed Emergency Room [facility] 10/22/14 5:11am Recent Diagnosis
--- OUTSIDE RECORDS SUMMARY | 2017-03-18 14:12 | XMS REPORT ---
Author Author Alisia Sampson Organization [employer]Works Address Unknown Phone Unavailable Care Team Providers Care Chief Science Officer Name Role Phone Alisia Sampson CP Unavailable [...] orally Q12H May 23, 2015 1 pill [place] NDC 88802 325 mg-10 mg orally every 8 hours May 23, 2015 1 tab(s) lorazepam NDC 44695 0.5 mg orally QD prn panic attack May 23, 2015 1 tab(s) Results No Known Results Summary Purpose eClinicalWorks Submission
--- OUTSIDE RECORDS SUMMARY | 2017-03-18 14:12 | XMS REPORT ---
Author Author Alisia Sampson Organization [employer] Address Unknown Phone Unavailable Care Team Providers Care Bucket Pusher Name Role Phone Alisia Sampson CP Unavailable [...] orally Q12H January 24, 2015 1 pill Results No Known Results Summary Purpose eClinicalWorks Submission
--- OUTSIDE RECORDS SUMMARY | 2017-03-18 14:12 | XMS REPORT ---
Author Author Alisia Sampson Organization [employer] Address Unknown Phone Unavailable Care Team Providers Care Jack Setter Name Role Phone Alisia Sampson CP Unavailable [...]
--- OUTSIDE RECORDS SUMMARY | 2017-03-18 14:12 | XMS REPORT ---
Author Author Alisia Sampson Organization [employer] Address Unknown Phone Unavailable Care Team Providers Care Manager Of It Name Role Phone Alisia Sampson CP Unavailable [...] Instructions Start Date End Date Status Dosage [facility] [address] 325 mg-10 mg orally every 8 hours April 11, 2015 1 tab(s) Results No Known Results Summary Purpose eClinicalWorks Submission
--- OUTSIDE RECORDS SUMMARY | 2017-03-18 14:12 | XMS REPORT ---
Author Alisia Khan [facility] eClinicalWorks Address Unknown Phone Unavailable Care Team Providers Care Director Transportation Name Role Phone Alisia Sampson Unavailable Allergies, Adverse Reactions, Alerts Substance Reaction Event Type Ultram Info Not Available Drug Allergy Problems Problem Type Condition ICD-9 Code Onset Dates Condition Status Problem Benign hypertension 401.1 Active Problem Drug Use, Long-term High-Risk Medication V58.69 Active Problem BPH W/O URINARY OBSTRUCT 600.00 Active Assessment Cellulitis and abscess 528.3 Active Problem Peripheral vascular disease NOS 443.9 Active Problem Hypercholesterolemia NOS 272.4 Active Problem Dysphagia 438.82 Active Problem Anklosing spondylitis 720.0 Active Problem Tobacco use disorder 305.1 Active Problem GERD 530.81 Active Medications Medication Code System Code Instructions Start Date End Date Status Dosage Xylocaine Topical MULTUM 79010 5% applied topically prn June 09, 2009 Active 1 jose rafael Bactrim DS MULTUM 4204 800 mg-160 mg orally 2 times a day May 10, 2013 Active 1 tab(s) Lotrel MULTUM 1289 5 mg-10 mg orally once a day Nov 26, 2012 Active 1 cap(s) Keflex MULTUM 1271 500 mg orally 4 times a day Active 1 cap(s) aspirin Unknown 0 81mg daily Active 1tab ranitidine MULTUM 77334 150 mg orally 2 times a day Active 1 cap(s) Echinacea Unknown 0 Active Unknown Elderberry Unknown 0 Active Unknown Diprolene MULTUM 113 dipropionate, augmented 0.05% applied topically 2 times a day 2012 Active 1 jose rafael Avodart MULTUM 78766 0.5 mg orally once a day Active 1 cap(s) Nexium MULTUM 42101 40.0 Milligram Active TAKE 1 CAPSULE BY MOUTH DAILY OxyContin MULTUM 6369 40mg orally Q12H April 22, 2013 Active 1 pill Lortab 10 MULTUM 9765 500 mg-10 mg orally every 8 hours April 22, 2013 Active 1 tab(s) Cranberry Unknown 0 Active Unknown Procedures Procedure Coding System Code Date AT LEAST 1 RX TRANSMIT ERX SYS CPT-4 G8553 May 10, 2013 Office/Outpatient Visit-Est CPT-4 00216 May 10, 2013 Vital Signs Date/Time: May 10, 2013 Temperature 97.5 F Blood Pressure Diastolic 80 mm Hg Blood Pressure Systolic 140 mm Hg Height 61 inches Weight 149.0 lbs Results No Known Results Summary Purpose eClinicalWorks Submission
--- OUTSIDE RECORDS SUMMARY | 2017-03-18 14:12 | XMS REPORT ---
Author Author Alisia Sampson Organization [facility] Address [address] [place] [address] Care Team Providers Care Operator Bearer Systems Name Role Phone Adrián Alisia Unavailable [phone] PROBLEMS Type Condition ICD9-CM Code [id number] Code Onset Dates Condition Status SNOMED Code Problem Peripheral vascular disease I73.9 Active 297637601 Problem Gout 274.9 Active 29051986 Problem Gastroesophageal reflux disease without esophagitis K21.9 Active 400745456 Assessment Zoster without complications B02.9 Jan, Active 721311694 Assessment Varicella without complication B01.9 Jan, Active 51153378 Problem Tobacco abuse disorder Z72.0 Active 748741316 Problem 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 32061464 Problem Hypercholesterolemia E78.0 Active 05744029 Problem Ankylosing spondylitis M45.9 Active 0998337 Problem Benign non-nodular prostatic hyperplasia, presence of lower urinary tract symptoms unspecified N40.0 Active 207408170 Problem Essential hypertension I10 Active 66482020 Problem Coronary artery disease involving [place] coronary artery of [place] heart without angina pectoris I25.10 Active 9795526888284 ALLERGIES Substance Reaction Event Type Date Status Ultram Unknown Drug Allergy Jan, Active SOCIAL HISTORY No smoking Hx information available PLAN OF CARE VITAL SIGNS Temperature 98.4 degrees Fahrenheit 2017-01-10 Weight 155 lbs 2017-01-10 Height 62 in 2017-01-10 BMI 28.35 kg/m2 2017-01-10 Oximetry 98 2017-01-10 Blood pressure systolic 130 mm Hg 2017-01-10 Blood pressure diastolic 86 mm Hg 2017-01-10 MEDICATIONS Medication Instructions Dosage Frequency Start Date End Date Duration Status Cetirizine Hydrochloride 10 mg orally once a day 1 tab(s) 24h March, 30 days Active [place] 325 mg-10 mg orally every 8 hours 1 tab(s) 8h Apr, Active aspirin 325 PO daily 1tab 24h Active Spiriva 18 mcg inhaled once a day 1 ea 24h 31 Oct, 2015 30 day(s) Active OxyContin 40mg orally Q12H 1 pill 15 Apr, 2016 Active clopidogrel 75 mg PO daily 1 tab 24h 30 Active fluticasone nasal 50 mcg/inh intranasally once a day PRN 1 to 2 spray(s) March, 30 day(s) Active Echinacea Active Elderberry Active lorazepam 0.5 mg orally QD prn panic attack 1 tab(s) May, Active diazepam 5 mg orally 30 minutes prior to proceduren 1 -2 tabs Sep, 0 Active Cranberry Active Lotrel 5 mg-10 mg orally once a day 1 cap(s) 24h 30 Active valacyclovir 1 g orally every 8 hours 1 tab(s) 8h Jan, 7 day(s ) Active RESULTS No Results PROCEDURES Procedure Date Ordered Related Diagnosis Body Site Office/Outpatient Visit-Est January 10, 2017 IMMUNIZATIONS No Known Immunizations
--- OUTSIDE RECORDS SUMMARY | 2017-03-18 14:12 | XMS REPORT ---
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 63351010 Problem Hypercholesterolemia E78.0 Active 94097008 Problem Ankylosing spondylitis M45.9 Active 6450661 Problem Benign non-nodular prostatic hyperplasia, presence of lower urinary tract symptoms unspecified N40.0 Active 129853144 Problem Essential hypertension I10 Active 33017386 Problem Coronary artery disease involving [place] coronary artery of [place] heart without angina pectoris I25.10 Active 7924193860571 ALLERGIES Unknown Allergies SOCIAL HISTORY No smoking Hx information available PLAN OF CARE VITAL SIGNS MEDICATIONS Medication Instructions Dosage Frequency Start Date End Date Duration Status [place] 325 mg-10 mg orally every 8 hours 1 tab(s) 8h Apr, Active OxyContin 40mg orally Q12H 1 pill Apr, Active lorazepam 0.5 mg orally QD prn panic attack 1 tab(s) May, Active RESULTS No Results PROCEDURES No Known procedures IMMUNIZATIONS No Known Immunizations
--- OUTSIDE RECORDS SUMMARY | 2017-03-18 14:13 | XMS REPORT ---
Author Alisia Khan Organization eClinicalWorks Address Unknown Phone Unavailable Care Team Providers Care Home Theater Installer Name Role Phone Alisia Sampson CP Unavailable [...] Instructions Start Date End Date Status Dosage [facility] [address] 325 mg-10 mg orally every 8 hours April 13, 2015 1 tab(s) Results No Known Results Summary Purpose eClinicalWorks Submission
--- OUTSIDE RECORDS SUMMARY | 2017-03-18 14:13 | XMS REPORT ---
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 76073543 Problem Hypercholesterolemia E78.0 Active 92313976 Problem Ankylosing spondylitis M45.9 Active 5305811 Problem Benign non-nodular prostatic hyperplasia, presence of lower urinary tract symptoms unspecified N40.0 Active 121673137 Problem Essential hypertension I10 Active 12174702 Problem Coronary artery disease involving [place] coronary artery of [place] heart without angina pectoris I25.10 Active [id number] ALLERGIES Unknown Allergies SOCIAL HISTORY No smoking Hx information available PLAN OF CARE VITAL SIGNS MEDICATIONS Medication Instructions Dosage Frequency Start Date End Date Duration Status lorazepam 0.5 mg orally QD prn panic attack 1 tab(s) May, Active OxyContin 40mg orally Q12H 1 pill Apr, Active [place] 325 mg-10 mg orally every 8 hours 1 tab(s) 8h Apr, Active RESULTS No Results PROCEDURES No Known procedures IMMUNIZATIONS No Known Immunizations
--- OUTSIDE RECORDS SUMMARY | 2017-03-18 14:13 | XMS REPORT ---
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 Problem Hypercholesterolemia E78.0 Active Problem Essential hypertension I10 Active Problem 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 Problem Benign non-nodular prostatic hyperplasia, presence of lower urinary tract symptoms unspecified N40.0 Active Problem Gout 274.9 Active Problem Coronary artery disease involving [place] coronary artery of [place] heart without angina pectoris I25.10 Active Problem Ankylosing spondylitis M45.9 Active Medications Medication Code System Code Instructions Start Date End Date Status Dosage Cranberry NDC 0 not defined Spiriva NDC 98343 18 mcg inhaled once a day Nov 09, 2015 1 ea Lotrel NDC 1289 5 mg-10 mg orally once a day 1 cap(s) Cetirizine Hydrochloride NDC 647365 10 mg orally once a day April 05, 2016 1 tab(s) Echinacea NDC 0 not defined fluticasone nasal NDC 16968 50 mcg/inh intranasally once a day PRN April 05, 2016 1 to 2 spray(s) lorazepam NDC 30410 0.5 mg orally QD prn panic attack May 23, 2015 1 tab(s) OxyContin NDC 6369 40mg orally Q12H April 24, 2016 1 pill [place] NDC 69987 325 mg-10 mg orally every 8 hours April 24, 2016 1 tab(s) clopidogrel NDC 97873 75 mg PO daily 1 tab aspirin NDC 0 325 PO daily 1tab Elderberry NDC 0 not defined Medrol Dosepak NDC 50682 oral Sep 05, 2016 as directed Procedures Procedure Coding System Code Date Office/Outpatient Visit-Est CPT-4 45029 Sep 05, 2016 Vital Signs Date/Time: Sep 05, 2016 Temperature 98.7 F Blood Pressure Diastolic 80 mm Hg Blood Pressure Systolic 124 mm Hg BMI 27.76 Index Height 62 in Weight 151.8 lbs Pulse 110 /min Results No Known Results Summary Purpose eClinicalWorks Submission
--- OUTSIDE RECORDS SUMMARY | 2017-03-18 14:13 | XMS REPORT ---
Author Author Alisia Sampson Organization [employer] Address Unknown Phone Unavailable Care Team Providers Care Salon Supervisor Name Role Phone Alisia Sampson CP Unavailable [...] Problem Tobacco use disorder 305.1 Active Medications No Known Medications Results No Known Results Summary Purpose eClinicalWorks Submission
--- OUTSIDE RECORDS SUMMARY | 2017-03-18 14:13 | XMS REPORT ---
Author Author Kelly Dawson Organization [employer] Address Unknown Phone Unavailable Care Team Providers Care Make Up Editor Name Role Phone Kelly Dawson CP Unavailable Allergies No Known Allergies Problems Problem Type Condition Code Onset Dates Condition Status Problem Hypertension 401.9 Active Problem CAD 414.01 Active Problem Dyslipidemia 272.4 Active Problem PVD (peripheral vascular disease) I73.9 Active Problem Dyslipidemia E78.5 Active Problem CAD (coronary artery disease) I25.10 Active Problem Peripheral Vascular Disease 443.9 Active Problem Tobacco Addiction 305.1 Active Problem HTN (hypertension) I10 Active Problem Tobacco abuse Z72.0 Active Problem Chest pain 786.50 Active Problem Cardiomegaly 429.3 Active Problem Abnormal EKG 794.31 Active Medications No Known Medications Results No Known Results Summary Purpose eClinicalWorks Submission
--- OUTSIDE RECORDS SUMMARY | 2017-03-18 14:13 | XMS REPORT ---
Author Author Alisia Sampson Organization [employer] Address Unknown Phone Unavailable Care Team Providers Care Body Artist Name Role Phone Alisia Sampson CP Unavailable [...] Start Date End Date Status Dosage Cranberry Unknown 0 Active Unknown Lortab 10 MULTUM 9765 500 mg-10 mg orally every 8 hours Active 1 tab (s) OxyContin MULTUM 6369 40mg orally Q12H Active 1 pill Results No Known Results Summary Purpose eClinicalWorks Submission
--- OUTSIDE RECORDS SUMMARY | 2017-03-18 14:13 | XMS REPORT ---
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 Problem Benign non-nodular prostatic hyperplasia, presence of lower urinary tract symptoms unspecified N40.0 Active Problem Gout 274.9 Active Problem Coronary artery disease involving [place] coronary artery of [place] heart without angina pectoris I25.10 Active Problem Ankylosing spondylitis M45.9 Active Medications Medication Code System Code Instructions Start Date End Date Status Dosage [place] NDC 57118 325 mg-10 mg orally every 8 hours April 24, 2016 1 tab(s) lorazepam NDC 52636 0.5 mg orally QD prn panic attack May 23, 2015 1 tab(s) OxyContin NDC 6369 40mg orally Q12H April 24, 2016 1 pill Results No Known Results Summary Purpose eClinicalWorks Submission
--- OUTSIDE RECORDS SUMMARY | 2017-03-18 14:13 | XMS REPORT ---
Author Author Alisia Sampson Organization [employer] Address Unknown Phone Unavailable Care Team Providers Care Metaphysician Name Role Phone Alisia Sampson CP Unavailable [...] Date End Date Status Dosage lorazepam NDC 91105 0.5 mg orally QD prn panic attack May 23, 2015 1 tab(s) OxyContin NDC 6369 40mg orally Q12H May 23, 2015 1 pill [place] NDC 32355 325 mg-10 mg orally every 8 hours May 23, 2015 1 tab(s) Results No Known Results Summary Purpose eClinicalWorks Submission
--- OUTSIDE RECORDS SUMMARY | 2017-03-18 14:13 | XMS REPORT ---
Author Author Alisia Sampson [facility] eClinicalWorks Address Unknown Phone Unavailable Care Team Providers Care Asset Management Analyst Name Role Phone Alisia Sampson Unavailable Allergies, [...] Peripheral vascular disease NOS 443.9 Active Assessment Left otitis media 382.9 Active Problem Benign hypertension 401.1 Active Problem BPH W/O URINARY OBSTRUCT 600.00 Active Problem Drug Use, Long-term High-Risk Medication V58.69 Active Medications Medication Code System Code Instructions Start Date End Date Status Dosage cefdinir NDC 67177 300 mg orally every 12 hours April 05, 2015 1 cap(s ) Lotrel NDC 1289 5 mg-10 mg orally once a day 1 cap(s) amlodipine-benazepril NDC 78866 5 mg-10 mg orally once a day 1 cap (s) Cranberry NDC 0 not defined OxyContin NDC 6369 40mg orally Q12H January 24, 2015 1 pill nizatidine NDC 25473 150 mg PO daily 1 tab Fluticasone Propionate NDC 53234 50 intranasally once a day 2 spray(s) Xylocaine Topical NDC 69266 5% applied topically prn June 09, 2009 1 jose rafael Diprolene NDC 113 dipropionate, augmented 0.05% applied topically 2 times a day 2012 1 jose rafael Avodart NDC 79488 0.5 mg orally once a day March 07, 2014 1 cap(s) Echinacea NDC 0 not defined meclizine NDC 86933 25 mg orally 3 times a day April 04, 2015 1 tab(s) [place] NDC 97044 325 mg-10 mg orally every 8 hours March 13, 2015 1 tab (s) clopidogrel NDC 85508 75 mg PO daily 1 tab Elderberry NDC 0 not defined Prednisone taper (60mg start) NDC 27119 10mg po daily February 09, 2015 6 times 4 days, 5 times 2 days, 4 times 2 days, 3 times 2 days, 2 times 2 days , 1 times 2 days Nexium NDC 58675 40 mg orally daily Oct 09, 2014 not defined aspirin NDC 0 325 PO daily 1tab Procedures Procedure Coding System Code Date Office/Outpatient Visit-Est CPT-4 03672 April 05, 2015 Vital Signs Date/Time: April 05, 2015 Temperature 98.9 F Blood Pressure Diastolic 70 mm Hg Blood Pressure Systolic 110 mm Hg BMI 27.63 Index Height 62 in Weight 151.1 lbs Results No Known Results Summary Purpose eClinicalWorks Submission
--- OUTSIDE RECORDS SUMMARY | 2017-03-18 14:13 | XMS REPORT | Continuity of Care Document ---
Author Author [facility] Organization [facility] Address Unknown Phone Unavailable Allergies Active Description Code Type Severity Reaction Onset Reported/Identified Relationship to Patient Clinical Status Yes tramadol HCl tramadol HCl Drug Allergy Severe HIVES 11/09/2012 Yes povidone-iodine povidone-iodine Drug Allergy Unknown BETADINE=RASH 05/06/2013 Yes erythromycin base erythromycin base Drug Allergy Severe MUSCLE PAIN AND WEAKNESS 02/23/2015 Yes ethyl alcohol ethyl alcohol Drug Allergy Severe MUSCLE PAIN AND WEAKNESS 02/23/2015 Medications Problems Date Dx Coded Attending Type Code Diagnosis Diagnosed By 05/06/2013 Lizette GARRISON, Matthew Harley 443.9 PERIPH VASCULAR DIS NOS 09/14/2014 Ortiz Marsh MD 272.4 HYPERLIPIDEMIA NEC/NOS 09/14/2014 Ortiz Marsh MD 305.1 TOBACCO USE DISORDER 09/14/2014 Ortiz Marsh MD 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,OTH INFERIOR WALL,INIT EPIS CAR 09/14/2014 Ortiz Marsh MD 414.01 CORONARY ATHEROSCLEROSIS OF [place] CORONARY VESSEL 09/14/2014 Ortiz Marsh MD 737.30 IDIOPATHIC SCOLIOSIS 09/14/2014 Ortiz Marsh MD 786.59 11/16/2015 Kristal Dawson MD F17.200 NICOTINE DEPENDENCE, UNSPECIFIED, UNCOMPLICATED 11/16/2015 Kristal Dawson MD I10 ESSENTIAL (PRIMARY) HYPERTENSION 11/16/2015 Kristal Dawson MD I25.10 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/O 11/16/2015 Kristal Dawson MD I25.2 OLD MYOCARDIAL INFARCTION 11/16/2015 Kristal Dawson MD R07.9 CHEST PAIN, UNSPECIFIED 11/16/2015 Kristal Dawson MD Z79.82 GEMOLOGIST (CURRENT) USE OF ASPIRIN 11/16/2015 Kristal Dawson MD Z88.6 ALLERGY STATUS TO ANALGESIC AGENT STATUS 11/16/2015 Samir GARRISON, Ruslanrodrick Huseyin Cisse Z98.61 CORONARY ANGIOPLASTY STATUS Procedures Code Description Performed By Performed On 88.42 CONTRAST AORTOGRAM Matthew Bauer MD 05/06/2013 88.48 CONTRAST ARTERIOGRAM-LEG Matthew Bauer MD 05/06/2013 88.49 CONTRAST ARTERIOGRAM NEC Matthew Bauer MD 05/06/2013 45.16 ESOPHAGOGASTRODUODENOSCOPY [EGD] W/CLOSED BIOPSY Mejia Villagomez MD 03/25/2014 00.40 PROCEDURE ON SINGLE VESSEL Salma GARRISON Ortiz 09/14/2014 00.47 INSERTION OF THREE VASCULAR STENTS Salma GARRISON [facility] 09/14/2014 00.66 PERCUTANEOUS TRANSLUMINAL CORONARY ANGIOPLASTY [PT Salma GARRISON [facility] 09/14/2014 36.07 INSRT OF DRUG-ELUTING CORON ARTERY STENTS(S) Salma GARRISON Ortiz 09/14/2014 37.22 LEFT HEART CARDIAC CATH Salma GARRISON [facility] 09/14/2014 88.53 LT HEART ANGIOCARDIOGRAM Salma GARRISON [facility] 09/14/2014 88.56 CORONAR ARTERIOGR-2 CATH Salma GARRISON [facility] 09/14/2014 00.40 PROCEDURE ON SINGLE VESSEL Kelly Dawson MD H 02/23/2015 00.45 INSERTION OF ONE VASCULAR STENT Samir GARRISON [facility] 02/23/2015 00.66 PERCUTANEOUS TRANSLUMINAL CORONARY ANGIOPLASTY [PT Samir GARRISON [facility] 02/23/2015 36.06 CORONARY ARTERY STENT INSERTION [id number] Douglas Dawson MD H 02/23/2015 36.07 INSRT OF DRUG-ELUTING CORON ARTERY STENTS(S) Samir GARRISON [facility] 02/23/2015 37.22 LEFT HEART CARDIAC CATH Samir GARRISON [facility] 02/23/2015 88.56 CORONAR ARTERIOGR-2 CATH Samir GARRISON [facility] 02/23/2015 Results Test Result Range CBC W/DIFF - 11/09/12 13:12 BASOPHIL # 0.2 k/cumm 0.0-0.2 BASOPHIL % 2 % 0-1 EOSINOPHIL # 0.2 k/cumm 0.1-0.5 EOSINOPHIL % 3 % 2-4 GRANULOCYTE # 4.7 k/cumm 2.0-9.0 GRANULOCYTE % 62 % 50-75 LYMPHOCYTE # 1.7 k/cumm 1.0-4.0 LYMPHOCYTE % 22 % 20-30 MEAN CELL HGB 33.0 pg 27.0-33.0 MEAN CELL HGB CONCENTRATION 33.5 g/dL 32.0-37.0 MEAN CELL VOLUME 98.7 fl 80.0-100.0 MONOCYTE # 0.8 k/cumm 0.1-1.0 MONOCYTE % 10 % 4-6 RED BLOOD CELL 5.24 m/cumm 4.00-6.00 RED CELL DISTRIBUTION WIDTH 13.4 % 11.0- 15.6 WHITE BLOOD CELL 7.6 k/cumm 5.0-10.0 HEMOGLOBIN 17.3 gm/dL 14.0-18.0 HEMATOCRIT 51.7 % 40.0-54.0 PLATELET COUNT 263 k/cumm 150-400 HEPATIC FUNCTION PANEL - 11/09/12 13:12 BILI UNCONJUGATED 0.5 mg/dL 0.0-0.7 AST/SGOT 26 Units/L 10-37 ALT/SGPT 29 Units/L < 66 TOTAL PROTEIN 8.0 gm/dL 6.4-8.2 ALBUMIN 3.6 gm/dL 3.4-5.0 BILI TOTAL 0.6 mg/dL 0.0-1.0 ALKALINE PHOSPHATASE TOTAL 96 Units/L 50- 136 BILI CONJUGATED 0.1 mg/dL 0.0-0.3 LIPASE - 11/09/12 13:12 LIPASE 174 Units/L 73-393 CHEM/HEM PROFILE-BEDSIDE - 11/09/12 13:13 POTASSIUM 3.7 mmol/L 3.5-5.3 METHOD Bedside ANION GAP 15 mmol/L 10-20 METHOD Bedside GLUCOSE 87 mg/dL 70-99 BLOOD UREA NITROGEN 10 mg/dL 7-20 CREATININE 0.7 mg/dL 0.8-1.3 HEMOGLOBIN 17.7 gm/dL 14.0-18.0 HEMATOCRIT 52.0 % 40.0-54.0 SODIUM 140 mmol/L 135-148 CHLORIDE 101 mmol/L 98-110 CARBON DIOXIDE 28 mmol/L 21-32 CALCIUM IONIZED 4.8 mg/dL 4.5-5.3 CBC - 05/06/13 08:26 MEAN CELL HGB 32.3 pg 27.0-33.0 MEAN CELL HGB CONCENTRATION 33.6 g/dL 32.0-37.0 MEAN CELL VOLUME 96.1 fl 80.0-100.0 RED BLOOD CELL 5.66 m/cumm 4.00-6.00 RED CELL DISTRIBUTION WIDTH 15.2 % 11.0- 15.6 WHITE BLOOD CELL 8.3 k/cumm 5.0-10.0 HEMOGLOBIN 18.3 gm/dL 14.0-18.0 HEMATOCRIT 54.4 % 40.0-54.0 PLATELET COUNT 212 k/cumm 150-400 METABOLIC PANEL, BASIC - 05/06/13 08:26 POTASSIUM 3.7 mmol/L 3.5-5.3 EST GFR (MDRD) > 60 mL/min > 59 ANION GAP 9 mmol/L 5-15 EST CrCl (CG) > 60 mL/min > 59 GLUCOSE 111 mg/dL 70-99 CALCIUM 9.2 mg/dL 8.5-10.1 BLOOD UREA NITROGEN 12 mg/dL 7-20 CREATININE 0.8 mg/dL 0.8-1.3 SODIUM 140 mmol/L 135-148 CHLORIDE 105 mmol/L 98-110 CARBON DIOXIDE 26 mmol/L 21-32 PROTHROMBIN TIME WITH INR - 05/06/13 09:09 INTERNATIONAL NORMAL RATIO 0.9 0.9-1.1 PROTHROMBIN TIME 10.5 sec 9.3-12.2 PARTIAL THROMBOPLASTIN TIME - 05/06/13 09:09 PARTIAL THROMBOPLASTIN TIME 34 sec 24-36 GLUCOSE (POC) - 03/25/14 07:24 GLUCOSE (POC) 104 mg/dL 70-99 HELICOBACTER UREASE SCREEN - 03/25/14 09:49 Microbiology CBC - 09/14/14 05:00 MEAN CELL HGB 33.4 pg 27.0-33.0 MEAN CELL HGB CONCENTRATION 32.6 g/dL 32.0-37.0 MEAN CELL VOLUME 102.5 fl 80.0-100.0 RED BLOOD CELL 5.12 m/cumm 4.00-6.00 RED CELL DISTRIBUTION WIDTH 14.2 % 11.0- 15.6 WHITE BLOOD CELL 12.5 k/cumm 5.0-10.0 HEMOGLOBIN 17.1 gm/dL 14.0-18.0 HEMATOCRIT 52.5 % 40.0-54.0 PLATELET COUNT 271 k/cumm 150-400 PROTHROMBIN TIME WITH INR - 09/14/14 05:00 INTERNATIONAL NORMAL RATIO 1.0 0.9-1.1 PROTHROMBIN TIME 10.4 sec 9.3-12.2 CHEM/HEM PROFILE-BEDSIDE - 09/14/14 05:26 POTASSIUM 3.7 mmol/L 3.5-5.3 METHOD Bedside ANION GAP 26 mmol/L 10-20 METHOD Bedside GLUCOSE 85 mg/dL 70-99 BLOOD UREA NITROGEN 26 mg/dL 7-20 CREATININE 1.6 mg/dL 0.8-1.3 HEMOGLOBIN 18.4 gm/dL 14.0-18.0 HEMATOCRIT 54.0 % 40.0-54.0 SODIUM 138 mmol/L 135-148 CHLORIDE 103 mmol/L 98-110 CARBON DIOXIDE 15 mmol/L 21-32 CALCIUM IONIZED 4.5 mg/dL 4.5-5.3 TROPONIN I BEDSIDE - 09/14/14 05:28 METHOD Bedside TROPONIN I < 0.04 ng/mL < 0.11 TROPONIN I - 09/14/14 14:44 TROPONIN I 4.72 ng/mL < 0.07 TROPONIN I - 09/14/14 22:20 TROPONIN I 5.01 ng/mL < 0.07 CBC - 09/15/14 03:56 COMMENT REVIEWED MEAN CELL HGB 32.5 pg 27.0-33.0 MEAN CELL HGB CONCENTRATION 32.0 g/dL 32.0-37.0 MEAN CELL VOLUME 101.7 fl 80.0-100.0 RED BLOOD CELL 4.18 m/cumm 4.00-6.00 RED CELL DISTRIBUTION WIDTH 14.2 % 11.0- 15.6 WHITE BLOOD CELL 7.7 k/cumm 5.0-10.0 HEMOGLOBIN 13.6 gm/dL 14.0-18.0 HEMATOCRIT 42.5 % 40.0-54.0 PLATELET COUNT 165 k/cumm 150-400 METABOLIC PANEL, BASIC - 09/15/14 03:56 POTASSIUM 3.4 mmol/L 3.5-5.3 EST GFR (MDRD) > 60 mL/min > 59 ANION GAP 7 mmol/L 5-15 EST CrCl (CG) > 60 mL/min > 59 GLUCOSE 76 mg/dL 70-99 CALCIUM 7.3 mg/dL 8.5-10.1 BLOOD UREA NITROGEN 14 mg/dL 7-20 CREATININE 0.7 mg/dL 0.8-1.3 SODIUM 141 mmol/L 135-148 CHLORIDE 109 mmol/L 98-110 CARBON DIOXIDE 25 mmol/L 21-32 TROPONIN I - 09/15/14 03:56 TROPONIN I 3.00 ng/mL < 0.07 LIPID PANEL - 09/15/14 03:56 CHOLESTEROL/HDL RATIO 3.0 < 5.0 LDL CHOLESTEROL 57 mg/dL < 100 VLDL CHOLESTEROL 20 mg/dL < 30 TRIGLYCERIDES 101 mg/dL < 150 CHOLESTEROL 115 mg/dL < 200 HDL CHOLESTEROL 38 mg/dL > 39 CBC - 02/23/15 09:50 MEAN CELL HGB 30.1 pg 27.0-33.0 MEAN CELL HGB CONCENTRATION 33.0 g/dL 32.0-37.0 MEAN CELL VOLUME 91.4 fl 80.0-100.0 RED BLOOD CELL 6.17 m/cumm 4.00-6.00 RED CELL DISTRIBUTION WIDTH 16.4 % 11.0- 15.6 WHITE BLOOD CELL 8.4 k/cumm 5.0-10.0 HEMOGLOBIN 18.6 gm/dL 14.0-18.0 HEMATOCRIT 56.4 % 40.0-54.0 PLATELET COUNT 217 k/cumm 150-400 METABOLIC PANEL, BASIC - 02/23/15 09:50 POTASSIUM 3.9 mmol/L 3.5-5.3 EST GFR (MDRD) > 60 mL/min > 59 ANION GAP 11 mmol/L 5-15 GLUCOSE 121 mg/dL 70-99 CALCIUM 9.3 mg/dL 8.5-10.1 BLOOD UREA NITROGEN 8 mg/dL 7-20 CREATININE 0.9 mg/dL 0.8-1.3 SODIUM 140 mmol/L 135-148 CHLORIDE 103 mmol/L 98-110 CARBON DIOXIDE 26 mmol/L 21-32 PARTIAL THROMBOPLASTIN TIME - 02/23/15 14:11 PARTIAL THROMBOPLASTIN TIME 84 sec 24-36 PARTIAL THROMBOPLASTIN TIME - 02/23/15 15:03 PARTIAL THROMBOPLASTIN TIME 61 sec 24-36 PARTIAL THROMBOPLASTIN TIME - 02/23/15 16:07 PARTIAL THROMBOPLASTIN TIME 55 sec 24-36 PARTIAL THROMBOPLASTIN TIME - 02/23/15 17:13 PARTIAL THROMBOPLASTIN TIME 45 sec 24-36 CBC - 02/24/15 04:15 MEAN CELL HGB 30.2 pg 27.0-33.0 MEAN CELL HGB CONCENTRATION 33.0 g/dL 32.0-37.0 MEAN CELL VOLUME 91.5 fl 80.0-100.0 RED BLOOD CELL 5.90 m/cumm 4.00-6.00 RED CELL DISTRIBUTION WIDTH 16.0 % 11.0- 15.6 WHITE BLOOD CELL 7.5 k/cumm 5.0-10.0 HEMOGLOBIN 17.8 gm/dL 14.0-18.0 HEMATOCRIT 54.0 % 40.0-54.0 PLATELET COUNT 192 k/cumm 150-400 B-TYPE NATRIURETIC PEPTIDE - 02/24/15 04:15 B-TYPE NATRIURETIC PEPTIDE 59 pg/mL < 100 METABOLIC PANEL, BASIC - 02/24/15 08:49 POTASSIUM 4.0 mmol/L 3.5-5.3 EST GFR (MDRD) > 60 mL/min > 59 ANION GAP 7 mmol/L 5-15 EST CrCl (CG) > 60 mL/min > 59 GLUCOSE 116 mg/dL 70-99 CALCIUM 9.5 mg/dL 8.5-10.1 BLOOD UREA NITROGEN 6 mg/dL 7-20 CREATININE 0.7 mg/dL 0.8-1.3 SODIUM 137 mmol/L 135-148 CHLORIDE 104 mmol/L 98-110 CARBON DIOXIDE 26 mmol/L 21-32 B-TYPE NATRIURETIC PEPTIDE - 03/20/15 04:30 B-TYPE NATRIURETIC PEPTIDE 28 pg/mL < 100 CBC W/DIFF - 03/20/15 04:30 BASOPHIL # 0.1 k/cumm 0.0-0.2 BASOPHIL % 1 % 0-1 EOSINOPHIL # 0.4 k/cumm 0.1-0.5 EOSINOPHIL % 6 % 2-4 GRANULOCYTE # 5.1 k/cumm 2.0-9.0 GRANULOCYTE % 68 % 50-75 LYMPHOCYTE # 1.1 k/cumm 1.0-4.0 LYMPHOCYTE % 15 % 20-30 MEAN CELL HGB 32.2 pg 27.0-33.0 MEAN CELL HGB CONCENTRATION 34.2 g/dL 32.0-37.0 MEAN CELL VOLUME 94.1 fl 80.0-100.0 MONOCYTE # 0.8 k/cumm 0.1-1.0 MONOCYTE % 11 % 4-6 RED BLOOD CELL 5.41 m/cumm 4.00-6.00 RED CELL DISTRIBUTION WIDTH 16.2 % 11.0- 15.6 WHITE BLOOD CELL 7.5 k/cumm 5.0-10.0 HEMOGLOBIN 17.4 gm/dL 14.0-18.0 HEMATOCRIT 50.9 % 40.0-54.0 PLATELET COUNT 182 k/cumm 150-400 HEPATIC FUNCTION PANEL - 03/20/15 04:30 BILI UNCONJUGATED 1.0 mg/dL 0.0-0.7 AST/SGOT 35 Units/L 10-37 ALT/SGPT 17 Units/L < 66 TOTAL PROTEIN 7.4 gm/dL 6.4-8.2 ALBUMIN 3.5 gm/dL 3.4-5.0 BILI TOTAL 1.1 mg/dL 0.0-1.0 ALKALINE PHOSPHATASE TOTAL 101 IU/L 45- 117 BILI CONJUGATED 0.1 mg/dL 0.0-0.3 ALCOHOL (ETHANOL) SERUM - 03/20/15 04:30 ALCOHOL (ETHANOL) SERUM < 10 mg/dL < 10 UR DRUGS OF ABUSE SCREEN - 03/20/15 04:30 UR AMPHETAMINES SCREEN NEG (<1000 ng/mL) NEGATIVE UR BARBITURATE SCREEN NEG (< 200 ng/mL) NEGATIVE DRUGS OF ABUSE SCREEN COMMENT UR OPIATES SCREEN NEG (< 300 ng/mL) NEGATIVE UR PHENCYCLIDINE (PCP) SCREEN NEG (< 25 ng/mL) NEGATIVE UR CANNABINOIDS (THC) SCREEN NEG (< 50 ng/mL) NEGATIVE UR COCAINE METABOLITE SCREEN NEG (< 300 ng/mL) NEGATIVE UR METHADONE SCREEN NEG (< 300 ng/mL) NEGATIVE UR BENZODIAZEPINE SCREEN NEG (< 200 ng/mL) NEGATIVE TROPONIN I BEDSIDE - 03/20/15 04:47 METHOD Bedside TROPONIN I < 0.04 ng/mL < 0.11 CHEM/HEM PROFILE-BEDSIDE - 03/20/15 04:48 POTASSIUM 4.0 mmol/L 3.5-5.3 METHOD Bedside ANION GAP 20 mmol/L 10-20 METHOD Bedside GLUCOSE 110 mg/dL 70-99 BLOOD UREA NITROGEN 9 mg/dL 7-20 CREATININE 0.9 mg/dL 0.8-1.3 HEMOGLOBIN 18.4 gm/dL 14.0-18.0 HEMATOCRIT 54.0 % 40.0-54.0 SODIUM 142 mmol/L 135-148 CHLORIDE 101 mmol/L 98-110 CARBON DIOXIDE 25 mmol/L 21-32 CALCIUM IONIZED 4.7 mg/dL 4.5-5.3 CHEM/HEM PROFILE-BEDSIDE - 11/16/15 19:57 POTASSIUM 3.3 mmol/L 3.5-5.3 METHOD Bedside ANION GAP 24 mmol/L 10-20 METHOD Bedside GLUCOSE 104 mg/dL 70-99 BLOOD UREA NITROGEN 9 mg/dL 7-20 CREATININE 1.2 mg/dL 0.7-1.3 HEMOGLOBIN 18.0 gm/dL 14.0-18.0 HEMATOCRIT 53.0 % 40.0-54.0 SODIUM 138 mmol/L 135-148 CHLORIDE 100 mmol/L 98-110 CARBON DIOXIDE 19 mmol/L 21-32 CALCIUM IONIZED 4.3 mg/dL 4.5-5.3 TROPONIN I BEDSIDE - 11/16/15 19:58 METHOD Bedside TROPONIN I < 0.04 ng/mL < 0.11 CBC - 11/16/15 20:00 MEAN CELL HGB 33.0 pg 27.0-33.0 MEAN CELL HGB CONCENTRATION 33.9 g/dL 32.0-37.0 MEAN CELL VOLUME 97.3 fl 80.0-100.0 RED BLOOD CELL 5.18 m/cumm 4.00-6.00 RED CELL DISTRIBUTION WIDTH 17.3 % 11.0- 15.6 WHITE BLOOD CELL 7.1 k/cumm 5.0-10.0 HEMOGLOBIN 17.1 gm/dL 14.0-18.0 HEMATOCRIT 50.4 % 40.0-54.0 PLATELET COUNT 186 k/cumm 150-400 PROTHROMBIN TIME WITH INR - 11/16/15 20:00 INTERNATIONAL NORMAL RATIO 0.9 0.9-1.1 PROTHROMBIN TIME 10.4 sec 9.3-12.2 PARTIAL THROMBOPLASTIN TIME - 11/16/15 20:00 PARTIAL THROMBOPLASTIN TIME 34 sec 23-39 TROPONIN I - 11/17/15 02:02 TROPONIN I < 0.02 ng/mL < 0.07 CBC - 11/17/15 05:16 MEAN CELL HGB 32.6 pg 27.0-33.0 MEAN CELL HGB CONCENTRATION 34.1 g/dL 32.0-37.0 MEAN CELL VOLUME 95.8 fl 80.0-100.0 RED BLOOD CELL 5.21 m/cumm 4.00-6.00 RED CELL DISTRIBUTION WIDTH 17.6 % 11.0- 15.6 WHITE BLOOD CELL 4.9 k/cumm 5.0-10.0 HEMOGLOBIN 17.0 gm/dL 14.0-18.0 HEMATOCRIT 49.9 % 40.0-54.0 PLATELET COUNT 160 k/cumm 150-400 PTT HEPARIN PROTOCOLS - 11/17/15 05:16 PARTIAL THROMBOPLASTIN TIME 224 sec 23- 39 METABOLIC PANEL, [facility] - 11/17/15 05:16 POTASSIUM 4.2 mmol/L 3.5-5.3 EST GFR (MDRD) > 60 mL/min > 59 ANION GAP 6 mmol/L 5-15 EST CrCl (CG) > 60 mL/min > 59 GLUCOSE 74 mg/dL 70-99 CALCIUM 7.8 mg/dL 8.5-10.1 BLOOD UREA NITROGEN 7 mg/dL 7-20 CREATININE 0.8 mg/dL 0.7-1.3 SODIUM 138 mmol/L 135-148 CHLORIDE 107 mmol/L 98-110 AST/SGOT 26 Units/L 10-37 ALT/SGPT 21 Units/L < 66 CARBON DIOXIDE 25 mmol/L 21-32 TOTAL PROTEIN 6.3 gm/dL 6.4-8.2 ALBUMIN 3.1 gm/dL 3.4-5.0 BILI TOTAL 0.8 mg/dL 0.0-1.0 ALKALINE PHOSPHATASE TOTAL 98 IU/L 45- 117 LIPID PANEL - 11/17/15 05:16 CHOLESTEROL/HDL RATIO 3.8 < 5.0 LDL CHOLESTEROL 91 mg/dL < 100 VLDL CHOLESTEROL 24 mg/dL < 30 TRIGLYCERIDES 122 mg/dL < 150 CHOLESTEROL 156 mg/dL < 200 HDL CHOLESTEROL 41 mg/dL > 39 TROPONIN I - 11/17/15 08:08 TROPONIN I < 0.02 ng/mL < 0.07 TROPONIN I - 11/17/15 13:35 TROPONIN I < 0.02 ng/mL < 0.07 CHEM/HEM PROFILE-BEDSIDE - 07/26/16 21:31 POTASSIUM 3.4 mmol/L 3.5-5.3 METHOD Bedside ANION GAP 20 mmol/L 10-20 METHOD Bedside GLUCOSE 103 mg/dL 70-99 BLOOD UREA NITROGEN 5 mg/dL 7-20 CREATININE 0.9 mg/dL 0.7-1.3 HEMOGLOBIN 17.7 gm/dL 14.0-18.0 HEMATOCRIT 52.0 % 40.0-54.0 SODIUM 143 mmol/L 135-148 CHLORIDE 103 mmol/L 98-110 CARBON DIOXIDE 25 mmol/L 21-32 CALCIUM IONIZED 4.2 mg/dL 4.5-5.3 TROPONIN I BEDSIDE - 07/26/16 21:32 METHOD Bedside TROPONIN I < 0.04 ng/mL < 0.11 D-DIMER QUANT - 07/26/16 21:32 D-DIMER QUANT 248 ng/mL 0-229 TROPONIN I BEDSIDE - 07/27/16 00:30 METHOD Bedside TROPONIN I < 0.04 ng/mL < 0.11 Encounters ACCT No. Visit Date/Time Discharge Status Pt. Type Provider Facility Loc./Unit Complaint [id number] 09/28/2016 08:09:00 2015 08:09:00 DIS Outpatient Hernando [facility]ARRISON, [id number] 09/27/2016 09:05:00 2015 13:03:00 DIS Outpatient Hernando GARRISON, [facility] W.END [id number] 07/26/2016 21:00:00 2015 01:45:00 DIS Emergency Stanislav GARRISON, Hem[facility] W.TONY [id number] 11/16/2015 20:17:00 2015 15:58:00 DIS Inpatient Samir GARRISON, [facility] W.E [id number] 03/20/2015 04:01:00 2014 08:05:00 [id number] 02/23/2015 09:08:00 2014 10:37:00 DIS Outpatient Samir GARRISON, [facility] [id number] 09/14/2014 05:17:00 2013 13:20:00 DIS Inpatient Salma GARRISON, [facility] W.E [id number] 03/25/2014 06:40:00 2013 10:35:00 DIS Outpatient Hernando GARRISON, [facility] W.END [id number] 06/14/2013 12:58:00 2012 15:56:00 DIS Emergency Jovanny Frey DO [facility] [id number] 05/06/2013 06:30:00 2012 07:34:00 DIS Outpatient Lizette GARRISON, Matthew Ahn [facility] W.OPRA [id number] 11/09/2012 10:56:00 2011 14:25:00 DIS [facility] W.EDS
--- OUTSIDE RECORDS SUMMARY | 2017-03-18 14:13 | XMS REPORT ---
Author Author Kelly Dawson Organization [employer] Address Unknown Phone Unavailable Care Team Providers Care Guest Relations Receptionist Name Role Phone Kelly Dawson CP Unavailable [...] Active Problem Abnormal EKG 794.31 Active Medications Medication Code System Code Instructions Start Date End Date Status Dosage Lab Order NDC 0 Orders Jul 30, 2016 as directed Results No Known Results Summary Purpose [employer] Submission
--- NOTE | 2017-03-18 14:28 | NUR ---
PROVIDER DR WILSON IN TO SEE PATIENT.
--- OUTSIDE RECORDS SUMMARY | 2017-03-18 14:32 | XMS REPORT | Continuity of Care Document ---
Author Author [facility] Organization [facility] Address Unknown Phone Unavailable Support Name Relationship Address Phone ZELALEM PAULA Next Of Kin [address] [place] [address] Unavailable Insurance Providers Payer Name Policy Number Subscriber Name Relationship Medicaid [id number] [place] 19 Self Medicare [id number] Donald Balbuena 19 Self Problems No Known [...] Procedure Code Date THER/PROPH/DIAG INJ IV PUSH 39140 05/17/11 THER/PROPH/DIAG INJ IV PUSH 91401 10/25/12 THER/PROPH/DIAG INJ IV PUSH 25704 06/14/13 TX/PRO/DX INJ NEW DRUG ADDON 15509 06/14/13 HYDRATE IV INFUSION ADD-ON 95250 06/14/13 HYDRATE IV INFUSION ADD-ON 42920 06/14/13 Encounters Encounter Location Date/Time Departed Emergency Room [facility] 06/14/13 4:53pm Registered Emergency Room [facility] 0:00am
--- OUTSIDE RECORDS SUMMARY | 2017-03-18 14:33 | XMS REPORT | Continuity of Care Document ---
Author Author [facility] Organization [facility] Address Unknown Phone Unavailable Care Team Providers Care Wheel And Pinion Inspector Name Role Phone HARPREET CHARLES Primary Care Physician [phone] Insurance Providers Payer Name Policy Number Subscriber Name Relationship Medicare [id number] Donald Balbuena 19 Self Medicaid [id number] Donald Balbuena 19 Self Problems Medical Problems [...] F (96.8 - 99.1) Temperature (Calculated Celsius) 36.60061 degrees C (36.0 - 37.3) Pulse Rate [...] Has specimen been collected/obtained? Y Urine Specific [place] January 26, 2014 6:45am 1.015 - Has [...] Encounters Encounter Location Date/Time Departed Emergency Room [facility] 05/29/14 6:18am Recent Diagnosis
--- OUTSIDE RECORDS SUMMARY | 2017-03-18 14:34 | XMS REPORT | Continuity of Care Document ---
Author Author [facility] Organization [facility] Address Unknown Phone Unavailable Care Team Providers Care Collision Repair Technician Name Role Phone HARPREET CHARLES Primary Care Physician [phone] Insurance Providers Payer Name Policy Number Subscriber Name Relationship Medicare [id number] Donald Balbuena 19 Self Medicaid [id number] Donald Balbuena 19 Self Problems Medical Problems [...] F (96.8 - 99.1) Temperature (Calculated Celsius) 36.89620 degrees C (36.0 - 37.3) Pulse Rate [...] Has specimen been collected/obtained? Y Urine Specific [place] October 22, 2014 6:30am 1.010 L - [...] October 22, 2014 5:35am < 2 0-7 VY-Vai-G-Type Natriuretic Peptide October 22, 2014 5:35am 620 PG/ML H 0 -175 Rule in cut points: <50 years old=450; 50-75 years old=900; >75 years old=1800; When utilizing ProBNP rule-in cut points, adjustment for impaired renal function is typically not required. Procedures No known history of procedures. Encounters Encounter Location Date/Time Departed Emergency Room [facility] 10/22/14 5:11am Recent Diagnosis
--- OUTSIDE RECORDS SUMMARY | 2017-03-18 14:35 | XMS REPORT | Continuity of Care Document ---
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 11/16/2015 Kristal Dawson MD I25.2 OLD MYOCARDIAL INFARCTION 11/16/2015 Kristal Dawson MD R07.9 CHEST PAIN, UNSPECIFIED 11/16/2015 Kristal Dawson MD Z79.82 SOFTWARE CLIENT ARCHITECT (CURRENT) USE OF ASPIRIN 11/16/2015 Kristal Dawson [...] INSERTION OF THREE VASCULAR STENTS Salma GARRISON [facility] 09/14/2014 00.66 PERCUTANEOUS TRANSLUMINAL CORONARY ANGIOPLASTY [PT Salma GARRISON [facility] 09/14/2014 36.07 INSRT OF DRUG-ELUTING CORON ARTERY STENTS(S) Salma GARRISON [facility] 09/14/2014 37.22 LEFT HEART CARDIAC CATH Salma GARRISON [facility] 09/14/2014 88.53 LT HEART ANGIOCARDIOGRAM Salma GARRISON [facility] 09/14/2014 88.56 CORONAR ARTERIOGR-2 CATH Salma GARRISON [facility] 09/14/2014 00.40 PROCEDURE ON SINGLE VESSEL Kelly Dawson MD H 02/23/2015 00.45 INSERTION OF ONE VASCULAR STENT Samir GARRISON [facility] 02/23/2015 00.66 PERCUTANEOUS TRANSLUMINAL CORONARY ANGIOPLASTY [PT Samir GARRISON [facility] 02/23/2015 36.06 CORONARY ARTERY STENT INSERTION RLD-MAFP-TNLNUMH Douglas Dawson MD H 02/23/2015 36.07 INSRT OF DRUG-ELUTING CORON ARTERY STENTS(S) Samir GARRISON [facility] 02/23/2015 37.22 LEFT HEART CARDIAC CATH Samir GARRSION [facility] H 02/23/2015 88.56 CORONAR ARTERIOGR-2 CATH Samir GARRISON [facility] H 02/23/2015 Results Test Result Range CBC [...] Status Pt. Type Provider Facility Loc./Unit Complaint [id number] 09/28/2016 08:09:00 2015 08:09:00 DIS Out[facility]ARR[id number] 09/27/2016 09:05:00 2015 13:03:00 DIS Outpatient Hernando GARRISON, [facility] W.END [id number] 07/26/2016 21:00:00 2015 01:45:00 DIS Emergency Stanislav GARIRSON, [facility] W.TONY [id number] 11/16/2015 20:17:00 2015 15:58:00 DIS Inpatient Samir GARRISON, [facility] W.E [id number] 03/20/2015 04:01:00 2014 08:05:00 [id number] 02/23/2015 09:08:00 2014 10:37:00 DIS Outpatient Samir GARRISON, [facility] [id number] 09/14/2014 05:17:00 2013 13:20:00 DIS Inpatient Salma GARRISON, [facility] W.E [id number] 03/25/2014 06:40:00 2013 10:35:00 DIS Outpatient Hernando GARRISON, [facility] W.END [id number] 06/14/2013 12:58:00 2012 15:56:00 DIS Emergency Jovanny Frey DO [facility] [id number] 05/06/2013 06:30:00 2012 07:34:00 DIS Outpatient Lizette GARRISON, Matthew Ahn [facility] W.OPRA [id number] 11/09/2012 10:56:00 2011 14:25:00 [facility].EDS
[2017-03-18] MEDS ORDERED: NORMAL SALINE 1,000 ML IV ONE (14:38)
[2017-03-18] MEDS ORDERED: PANTOPRAZOLE 40mg INJECTION IV ONE (14:45)
[2017-03-18] MEDS ORDERED: ONDANSETRON 4mg/2ml INJECTION IV ONE (14:45)
[2017-03-18 15:10] LABS: BASOPHILS # (AUTO) 0.1 T/MM3 (0-0.2); BASOPHILS % (AUTO) 1.1 % (0-2); EOSINOPHILS # (AUTO) 0.1 T/MM3 (0-0.5); EOSINOPHILS % (AUTO) 0.7 % (0-4); HCT - HEMATOCRIT 53.9 % (41-53); HGB - HEMOGLOBIN 17.8 GM/DL (13.5-17.5); LYMPHOCYTES # (AUTO) 1.1 T/MM3 (1-4.8); LYMPHOCYTES % (AUTO) 11.2 % (23-45); MEAN CORPUSCULAR HGB 32.2 UUG (26-34); MEAN CORPUSCULAR VOLUME 97.5 UM3 (80-100); MEAN PLATELET VOLUME 10.8 UM3 (9.4-12.4); MONOCYTES # (AUTO) 0.8 T/MM3 (0-0.8); MONOCYTES % (AUTO) 8.4 % (0-9.0); NEUTROPHILS #(AUTO)-ABSOLUTE 7.8 T/MM3 (1.8-7.7); NEUTROPHILS % (AUTO) 78.6 % (33-66); RED BLOOD COUNT 5.53 M/MM3 (4.50-5.90)
--- NOTE | 2017-03-18 15:10 | NUR ---
TO CT PER CART.
[2017-03-18] MEDS ORDERED: ALBU2.5V7 AEROSOL (15:13)
[2017-03-18 15:14] LABS: ALBUMIN 4.1 G/DL (3.5-5.0); ALBUMIN/GLOBULIN RATIO 1.3 RATIO (1.1-2.2); ALKALINE PHOSPHATASE 122 U/L (38-126); ALT (SGPT) 43 U/L (21-72); ANION GAP 21 MEQ/L (5-15); AST (SGOT) 50 U/L (17-59); BUN/CREATININE RATIO 12 RATIO (6-26); CALCIUM 9.5 MG/DL (8.4-10.2); CHLORIDE 103 MEQ/L (98-107); CO2 - CARBON DIOXIDE 20 MEQ/L (22-30); CREATININE 1.2 MG/DL (0.8-1.5); GLOMERULAR FILTRATION RATE 62; GLUCOSE 137 MG/DL (75-110); POTASSIUM 3.4 MEQ/L (3.6-5); SODIUM 144 MEQ/L (134-144); TOTAL PROTEIN 7.3 G/DL (6.3-8.2)
[2017-03-18 15:14] LABS: BLOOD, URINE NEGATIVE (NEGATIVE); COLOR,URINE AMBER (YELLOW); LEUKOCYTE ESTERASE ,URINE TRACE (NEGATIVE); NITRITE,URINE NEGATIVE (NEGATIVE)
[2017-03-18] MEDS ORDERED: FLUT16SP EA NOSTRIL (15:16)
[2017-03-18] MEDS ORDERED: CETI-269 PO (15:16)
[2017-03-18] MEDS ORDERED: OXYC40TA PO (15:16)
[2017-03-18] MEDS ORDERED: HYDR-3995 PO (15:16)
[2017-03-18] MEDS ORDERED: AMLO1CAP11 PO (15:16)
--- NOTE | 2017-03-18 15:22 | NUR ---
BACK FROM CT
[2017-03-18 15:36] LABS: BACTERIA,URINE 1+ (NEGATIVE); RBC,URINE 0-1 /HPF (0-3); SQUAMOUS EPITHELIAL CELL,UR 0-5
--- NOTE | 2017-03-18 15:41 | DI ---
EXAM: CT RENAL W/O CONTRAST LOCATION OF DICTATION: [place] HISTORY: ITS.REASON: right flank COMPARISON: No prior studies available for comparison. TECHNIQUE: Multiple contiguous axial images were obtained of the abdomen and pelvis without contrast. Thin sections were obtained through the kidneys and ureters. Automated Exposure Control and Iterative Reconstruction dose reducing techniques were utilized. FINDINGS: CT ABDOMEN LUNG BASES: There is linear atelectasis or scarring within the lung bases. The heart is normal in size. Moderate calcific atherosclerotic disease of the coronary arteries. LIVER: There is diffuse fatty infiltration of the liver demonstrated. The liver is normal in size. SPLEEN: Unremarkable. GALLBLADDER: The gallbladder is surgically absent. PANCREAS: Unremarkable ADRENAL GLANDS: Unremarkable. KIDNEYS: There is mild left renal cortical thinning/atrophy. The kidneys demonstrate a lobulated appearing cortex bilaterally. There is no hydronephrosis or obstructing calculus. AORTA: There is moderate calcific atherosclerotic disease of the aorta and iliac arteries. LYMPH NODES: Unremarkable. STOMACH BOWEL LOOPS: There is diverticulosis without diverticulitis. Small hiatal hernia is demonstrated. PERITONEAL CAVITY: No abdominal or pelvic ascites. CT PELVIS URINARY BLADDER: Unremarkable. PELVIC VISCERA: The prostate is mildly prominent. The seminal vesicles are normal. OSSEOUS STRUCTURES: There is moderate spondylosis of the thoracolumbar spine. Chronic anterior wedge compression fracture suggested at T12 level. Probable chronic fractures involving the inferior endplate of L2 and. Endplate of L4 vertebra. Impression: 1. Lobulated appearing right and left kidneys with left renal cortical atrophy. No evidence for mass, hydronephrosis, or obstructing calculus. The right and left distal ureters are within normal limits. The bladder is decompressed and within normal limits. 2. Extensive diverticulosis about the descending and sigmoid colon without diverticulitis. 3. Moderate calcific atherosclerotic disease 4. There is suggested fatty infiltration of the liver. The gallbladder is surgically absent. .
[2017-03-18] MEDS ORDERED: MORPHINE SULFATE 2 MG SYRINGE IV ONE (15:45)
--- NOTE | 2017-03-18 15:59 | ERPDOC ---
Departure Disposition Decision Date: March 18, 2017 Disposition Decision Time: 16:31 Disposition: 01 DISCHARGED HOME, SELF-CARE Impression Impression Impression: Primary Impression: Nausea & vomiting Vomiting type: unspecified Vomiting Intractability: non-intractable Qualified Codes: R11.2 - Nausea with vomiting, unspecified Additional Impression: Flank pain Severity: Moderate Condition: Improved Seen By: Physician only Referrals: HARPREET CHARLES (Family) 1 Day Patient Instructions: Acute Nausea and Vomiting (ED), Clear Liquid Diet (ED), Flank Pain (ED) Problems/Meds/Labs Reviewed?: Yes Medications reviewed and manag: Yes Follow up care ordered?: Yes Mental Status: Alert, Oriented Scripts Ondansetron (Zofran Odt) 4 Mg Tab.rapdis 4 MG PO Q4HR for VOMITING, #12 TAB 0 Refills Oral Disintegrating Tablet Prov: JORDI WILSON DO 03/18/17 HPI - Back Pain General Chief Complaint: Back Pain or Injury Stated Complaint: SWEATS, RIGHT SIDE PAIN, VOMITING Time Seen by Provider: 14:07 Source: patient (Patient presents to the ER with rigth flank pain with nausea and vomiting. ) Exam Limitations: no limitations HPI - Back Pain Occurred At: home Onset/Timing: Changing over time Duration: 1-3 hrs Pain/Severity Scale: Now & Worst: 7/10 Severity/Quality: moderate Location: other (right flank) Radiation: other (NoNone) Method of Injury/Context: other (no Injury) Modifying Factors: IMPROVES WITH: pain medication Associated Sypmtoms: other (Nausea and Vomiting. No saddle anesthesia), DENIES : fever, loss of bladder control, loss of bowel control, lower back pain, muscle spasms, numbness in legs/feet, sensory/motor loss, tingling in legs/feet , weakness Allergies: Coded Allergies: tramadol HCl (Verified Adverse Reaction, Unknown, RASH, 03/18/17) Past History Past Medical History Metabolic: hypertension Cardiac: CAD, LA Respiratory: COPD GI: GERD, constipation, other Musculoskeletal: back pain, neck pain Psychological: alcohol abuse Surgical History General: appendix, gallbladder Cardiac: cardiac cath, cardiac stent Vaccines Hx Influenza Vaccination: Yes (JUL 2014) Social History Smoking Status: Unknown if ever smoked Does patient use chewing tobac: No Second Hand Exposure: No Substance Use Type: does not use Alcohol Intake: none Sexuality: female partner Housing: house Service: No Occupational Hazard: No Advance Directives: Yes Full Code Record Review Pertinent history updated: Yes Review of Systems Constitutional Constitutional: DENIES: chills, fever Eyes Lids/Accessories: DENIES: erythema, swelling ENMT Ears: DENIES: erythema, pain Balance: DENIES: ataxia, vertigo Sinuses: DENIES: congestion, rhinorrhea Mouth/Throat: DENIES: sore throat Cardiovascular Cardiac: DENIES: chest pain, dyspnea on exertion, orthopnea Rhythm/Rate: DENIES: tachycardia Pulmonary Respiratory: DENIES: cough, dyspnea, sputum GI Upper Abdomen: nausea, vomiting, DENIES: pain Lower Abdomen: DENIES: constipation, diarrhea, pain General: DENIES: dysuria Musculoskeletal General: DENIES: cramps, pain, weakness Integumentary Skin: DENIES: color change, itching, rash Neurological General: DENIES: ataxia, change in strength, headache, numbness, poor coordination, seizures, syncope, vertigo, weakness Psychiatric Psychiatric: DENIES: anxiety, depression, nervousness Hematologic/Lymphatic Hematologic/Lymphatic: DENIES: anemia Allergic/Immunological Allergic/Immunoligical: DENIES: sneezing All other Systems All Other Systems: Reviewed and Negative Physical Exam General General Nourishment: well nourished, well developed, appears stated age, adult , thin General Body Habitus: well groomed Vitals and Pain First Documented Vital Signs Date Time Temp Pulse Resp B/P Pulse Ox O2 Delivery O2 Flow Rate FiO2 03/18/17 14:08 97.0 95 16 103/62 98 Room Air Weight: Kilograms: 69.800 Height (feet): 5 Height (inches): 3.00 Triage Pain Scale: RN VS reviewed by Provider: Yes Eyes (brief) Eyes Brief: found: EOMI, PERRL ENMT (brief) ENMT Brief: FOUND: TM clear, TM good light reflex, mucosa moist, NOT FOUND: pharnyx erythema Neck (brief) Neck: FOUND: trachea midline, NOT FOUND: adenopathy, tenderness, tracheal deviation Respiratory (brief) Respiratory: FOUND: clear all reardon, equal bilaterally Cardiovascular (brief) Cardiac: FOUND: regular rate, regular rhythm Capillary Refill: <2 sec Pulses: all distal extremities, equal, strong Abdomen (brief) Abdominal Brief: FOUND: bowel normo active x4, soft, NOT FOUND: distended, tender Lymphatic (brief) Lymphatic Brief: NOT FOUND: adenopathy Musculoskeletal (brief) Musculoskeletal Brief: FOUND: other (no mid-line vertebral tenderness of the C/ T/L spine), NOT FOUND: spasm, tenderness Integumentary (brief) Integumentary Brief: FOUND: pink, warm Neurologic (brief) Neurological Brief: FOUND: CN w/o gross def to obs, gait w/o gross def to obs, motor-no gross deficits, sensory-no gross deficits, NOT FOUND: ataxia Psychiatric (brief) Psychiatric Brief: FOUND: alert, attentive, normal affect, oriented Differential Diagnoses Considering: Biliary Colic, Lumbar Sprain, Lumbar Strain, Pancreatitis, Pyelonephritis, Renal Colic, Thoracic Sprain, Thoracic Strain, Other Progress Results/Orders Orders Procedure Category Date Status Time Iv Lock (Ed Only) EDM 03/18/17 Transmitted 14:38 Nothing By Mouth (Ed EDM 03/18/17 Transmitted Only) 14:38 Cbc W/Auto LAB 03/18/17 Complete Diff-Reflex Manual 14:38 Cmp - Comprehensive LAB 03/18/17 Complete Metabolic 14:38 Normal Saline (Normal PHA 03/18/17 Complete Saline Iv) 14:38 Lipase LAB 03/18/17 Complete Ondansetron Inj PHA 03/18/17 Complete (Zofran) 14:45 Pantoprazole PHA 03/18/17 Complete (Protonix Iv) 14:45 Ct Renal W/O Contrast CT 03/18/17 Resulted UA, LAB 03/18/17 Complete Dip&Micro(Complete) & 15:06 Morphine Sulfate PHA 03/18/17 Complete (Morphine) 15:45 Promethazine PHA 03/18/17 Complete (Phenergan) 16:00 Troponin I W LAB 03/18/17 Complete Hemolysis Index EKG EKG 03/18/17 Logged Lab Results Laboratory Tests Test 03/18/17 14:54 03/18/17 15:06 White Blood Count 10.0T/MM3 Red Blood Count 5.53M/MM3 Hemoglobin 17.8GM/DL Hematocrit 53.9% Mean Corpuscular Volume 97.5UM3 Mean Corpuscular Hemoglobin 32.2UUG Mean Corpuscular Hemoglobin Concent 33.0GM/DL RDW Standard Deviation 51.6FL Platelet Count 195T/MM3 Mean Platelet Volume 10.8UM3 Immature Granulocyte % (Auto) 0.0% Neutrophils (%) (Auto) 78.6% Lymphocytes (%) (Auto) 11.2% Monocytes (%) (Auto) 8.4% Eosinophils (%) (Auto) 0.7% Basophils (%) (Auto) 1.1% Absolute Immature Granulocyte (auto 0.00T/MM3 Absolute Neutrophils (auto) 7.8T/MM3 Absolute Lymphocytes (auto) 1.1T/MM3 Absolute Monocytes (auto) 0.8T/MM3 Absolute Eosinophils (auto) 0.1T/MM3 Absolute Basophils (auto) 0.1T/MM3 Turbidity < 20 Sodium Level 144MEQ/L Potassium Level 3.4MEQ/L Chloride Level 103MEQ/L Carbon Dioxide Level 20MEQ/L Anion Gap 21MEQ/L Blood Urea Nitrogen 14.0MG/DL Creatinine 1.2MG/DL Glomerular Filtration Rate Calc 62 BUN/Creatinine Ratio 12RATIO Glucose Level 137MG/DL Calculated Osmolality 280MOSM/KG Calcium Level 9.5MG/DL Total Bilirubin 1.30MG/DL Icterus Index < 2 Aspartate Amino Transf (AST/SGOT) 50U/L Alanine Aminotransferase (ALT/SGPT) 43U/L Alkaline Phosphatase 122U/L Troponin I < 0.012ng/ml Total Protein 7.3G/DL Albumin 4.1G/DL Globulin 3.2G/DL Albumin/Globulin Ratio 1.3RATIO Lipase 240U/L Chemistry Specimen Hemolysis < 15 Urine Collection Type Cleancatch-midstream Urine Color [place] Urine Turbidity Clear Urine pH 5.0 Urine Specific [place] >=1.030 Urine Protein 2+ Urine Glucose (UA) Negative Urine Ketones Trace Urine Blood Negative Urine Nitrite Negative Urine Bilirubin 2+ Urine Urobilinogen 1.0EU/DL Urine Leukocyte Esterase Trace Urine RBC 0-1/HPF Urine WBC 1-3/HPF Urine Squamous Epithelial Cells 0-5 Urine Bacteria 1+ Urine Hyaline Casts 3-5/LPF Urine Culture Indicated Cult not indicated Medications Current ED Medications Sodium Chloride (Normal Saline IV) 1,000 ml @ 0 mls/hr Q0M ONCE IV Last administered on 03/18/17t 14:57; Start 03/18/17 at 14:38; Stop 03/18/17 at 14:45; Status DC Ondansetron HCl (Zofran) 4 mg O ONCE IV Last administered on 03/18/17 14:57; Start 03/18/17 at 14:45; Stop 03/18/17 at 14:46; Status DC Pantoprazole Sodium (Protonix Iv) 40 mg O ONCE IV Last administered on 14:57; Start 03/18/17 at 14:45; Stop 03/18/17 at 14:46; Status DC Morphine Sulfate (Morphine) 2 mg O ONCE IV Last administered on 03/18/17 15:49 ; Start 03/18/17 at 15:45; Stop 03/18/17 at 15:46; Status DC Promethazine HCl (Phenergan) 12.5 mg O ONCE IV Last administered on 03/18/17 16:03; Start 03/18/17 at 16:00; Stop 03/18/17 at 16:01; Status DC Progress Progress Patient is feeling better following medications and is wanting to go home Patient to follow with his PCP, returning to the ER with worsening symptoms EKG EKG : Rate: 60-100 Rhythm: sinus [place]: normal QRS: normal Intervals: normal ST/T: non-specific changes Interpreted by: signing physician EKG ScImage/Picomm EKG interpreted in ScImage/Pic: No CT CT : CT: Abd/Pelvis IV contrast Interpretation: Abnormal (Chronis findings, no acute changes), Reviewed Written Report JORDI WILSON DO March 18, 2017 15:59
[2017-03-18] MEDS ORDERED: PROMETHAZINE 25 MG INJECTION IV ONE (16:00)
[2017-03-18] MEDS ORDERED: ONDA4TAB7 PO (16:34)
[2017-03-18 16:38] VITALS: BP 112/65; PULSE 90; RESP 16; TEMP 98; O2SAT 98
== END 2017-03-18 16:38 | disposition home or self-care (01) ==
LOC: ED 14:05
DX: M54.89 Other dorsalgia (principal); R11.2 Nausea with vomiting, unspecified
CPT/HCPCS: 74176; 80053; 81001; 83690; 84484; 85025; 93005; 96361; 96374; 96375; 99284; C9113; J2405; J2550; J7030

== ENCOUNTER 2017-04-07 20:37 | Emergency (ER) | payer MEDICARE, MEDICAID ==
[~2017-04-07] VITALS: Ht 157.5 cm; Wt 68.1 kg
[~2017-04-07 20:37] MED LIST changes: -AMLO10TA62 PO; +AMLO1CAP11 PO; +CETI-269 PO; +FLUT16SP EA NOSTRIL; +HYDR-3995 PO; -HYDR-4246 PO; +ONDA4TAB7 PO; +OXYC40TA PO; -OXYC40TA25 PO; -PRED10TA PO; -[UNRECOGNIZED DRUG - CODE] PO
[2017-04-07 20:39] VITALS: Ht 157.5 cm; Wt 68.1 kg
--- OUTSIDE RECORDS SUMMARY | 2017-04-07 20:43 | XMS REPORT ---
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 98178987 Problem Hypercholesterolemia E78.0 Active 59839757 Problem Ankylosing spondylitis M45.9 Active 7597673 Problem Benign non-nodular prostatic hyperplasia, presence of lower urinary tract symptoms unspecified N40.0 Active 361837246 Problem Essential hypertension I10 Active 34894106 Problem Coronary artery disease involving [place] coronary artery of [place] heart without angina pectoris I25.10 Active 2205118611492 ALLERGIES Unknown Allergies SOCIAL HISTORY No smoking Hx information available PLAN OF CARE VITAL SIGNS MEDICATIONS Medication Instructions Dosage Frequency Start Date End Date Duration Status OxyContin 40mg orally Q12H 1 pill Apr, Active lorazepam 0.5 mg orally QD prn panic attack 1 tab(s) May, Active [place] 325 mg-10 mg orally every 8 hours 1 tab(s) 8h Apr, Active RESULTS No Results PROCEDURES No Known procedures IMMUNIZATIONS No Known Immunizations
--- OUTSIDE RECORDS SUMMARY | 2017-04-07 20:44 | XMS REPORT | Continuity of Care Document ---
Author Author [facility] Organization [facility] Address Unknown Phone Unavailable Support Name Relationship Address Phone ZELALEM PAULA Next Of Kin [address] [place] [address] Unavailable Insurance Providers Payer Name Policy Number Subscriber Name Relationship Medicaid [id number] [place] 19 Self Medicare [id number] Donald Balbuena 19 Self Problems No Known [...] Procedure Code Date THER/PROPH/DIAG INJ IV PUSH 60386 05/17/11 THER/PROPH/DIAG INJ IV PUSH 98153 10/25/12 THER/PROPH/DIAG INJ IV PUSH 20365 06/14/13 TX/PRO/DX INJ NEW DRUG ADDON 77892 06/14/13 HYDRATE IV INFUSION ADD-ON 34867 06/14/13 HYDRATE IV INFUSION ADD-ON 84275 06/14/13 Encounters Encounter Location Date/Time Departed Emergency Room [facility] 06/14/13 4:53pm Registered Emergency Room [facility] 0:00am
--- OUTSIDE RECORDS SUMMARY | 2017-04-07 20:45 | XMS REPORT | Continuity of Care Document ---
Author Author [facility] Organization [facility] Address Unknown Phone Unavailable Care Team Providers Care Turning Sander Operator Name Role Phone HARPREET CHARLES Primary Care Physician [phone] Insurance Providers Payer Name Policy Number Subscriber Name Relationship Medicare [id number] Donald Balbuena 19 Self Medicaid [id number] Donald Balbuena 19 Self Problems Medical Problems [...] F (96.8 - 99.1) Temperature (Calculated Celsius) 36.85909 degrees C (36.0 - 37.3) Pulse Rate [...] Has specimen been collected/obtained? Y Urine Specific [place] January 26, 2014 6:45am 1.015 - Has [...] Encounters Encounter Location Date/Time Departed Emergency Room [facility] 05/29/14 6:18am Recent Diagnosis
--- OUTSIDE RECORDS SUMMARY | 2017-04-07 20:46 | XMS REPORT | Continuity of Care Document ---
Author Author [facility] Organization [facility] Address Unknown Phone Unavailable Support Name Relationship Address Phone STEVEJORDI BELLE Caregiver [address] [place] [address] Unavailable HARPREET CHARLES Caregiver [address] [place] [address] Unavailable ZELALEM PAULA Next Of Kin [address] [place], [place] [id number] Insurance Providers Guarantor Donald Balbuena Address [address] [place] [address] Email DENIED [phone] Payer Medicaid Policy Number [id number] Subscriber's Name Donald Balbuena Relationship 18 Self Effective Date 17 Expiration Date 17 Payer Medicare Policy Number [id number] Subscriber's Name Donald Balbuena Relationship 18 Self Chief Complaint and Reason for Visit Chief Complaint Back Pain or Injury Reason for Visit Nausea & vomiting Flank pain Problems Active Problems Medical Problem Onset Date Status Atypical chest pain Unknown Acute Bronchitis Unknown Acute COPD exacerbation Unknown Acute Gastritis Unknown Acute Headache Unknown Acute Shoulder pain, right Unknown Acute Shoulder pain, right Unknown Acute Past Problems Medical Problem Onset Date Flank pain Unknown Nausea & vomiting Unknown Medications Current Home Medications Medication Dose Units Route Directions Days Qty Instructions Start Date Acetaminophen/Hydrocodone Bitart ([place] 10-325 Tablet) 10-325 Tablet 1 Tab Oral Three Times A Day 03/18/17 Albuterol Sulfate 2.5 Mg/3 Ml Vial.neb 2.5 Mg Aerosol Tx. Every 4 Hours as needed for Wheezing 03/18/17 Amlodipine Besylate/Benazepril (Amlodipine-Benazepril 5-10 Mg) 1 Each Capsule 1 Cap Oral Daily 03/18/17 Aspirin (Aspir 81) 81 Mg Tablet. 81 Mg Oral Daily 10/03/11 Cetirizine Hcl 10 Mg Tablet 10 Mg Oral Daily as needed for Allery Symptoms 03/18/17 Clopidogrel Bisulfate (Plavix) 75 Mg Tablet 75 Mg Oral Daily 11/24 Fluticasone Propionate (Fluticasone Prop 50 Mcg/Actuation Nasal Green) 120 Green/16 G Green 1-2 Green Each Nostril Daily as needed for Prn Orders 03/18/17 Lorazepam 0.5 Mg Tablet 0.5 Mg Oral Daily as needed for Anxiety 05/14/15 Ondansetron (Zofran Odt) 4 Mg Tab.rapdis 4 Mg Oral Every 4 Hours for Vomiting 12 Tablet Oral Disintegrating Tablet 03/18/17 Oxycodone Hcl (Oxycontin) 40 Mg Tab.er.12h 40 Mg Oral Every 12 Hours 03/18/17 Past Home Medications Medication Directions Ordered Status Amlodipine , 05/18/11 Discontinued Azithromycin (Zithromax) 250 Mg Tablet, 1 Tab Oral Daily 09/05/15 Discontinued Hydrocodone , 10/08/09 Discontinued Oxycontin , 10/08/09 Discontinued Prednisone 20 Mg Tablet, 20 Mg Oral As Directed 08/28/15 Discontinued Prednisone 10 Mg Tablet, 10 Mg Oral As Directed 09/05/15 Discontinued Prevacid , 05/18/11 Discontinued Ranitidine Hcl (Zantac) 150 Mg Tablet, 150 Mg Oral Twice A Day 12/21/13 Discontinued Unk Antibiotic , 04/10/15 Discontinued Social History Social History Problem Response Recorded Date/Time Onset Date Status Hx Alcohol Use Y DAILY 03/18/2017 2:26pm Not Applicable Not Applicable Tobacco Usage smoke 05/29/2014 7:04am Not Applicable Not Applicable Query Response Start Date Stop Date Smoking Status Never smoker Hospital Discharge Instructions No hospital discharge instructions. Plan of Care Discharge Date 03/18/17 4:38pm Disposition 01 DISCHARGED HOME, SELF-CARE Condition at Discharge Improved Instructions/Education Provided Clear Liquid Diet (ED) Acute Nausea and Vomiting (ED) Flank Pain (ED) Prescriptions See Medication Section Referrals HARPREET CHARLES Order Date: 1 Day Address: [address] [place] [phone] Note: Care Plan and Goals Physician Care Plan Problem: 1. Nausea and Vomiting 2. Flank Pain Goal: 1. Follow up with primary care provider in 1 day for recheck 2. Continue Home medications 3. Return to the ER as needed Instructions: 1. Take medications and follow care plan as discussed/written Functional Status No functional status results. Allergies, Adverse Reactions, Alerts Allergen Type Severity Reaction Status Last Updated tramadol HCl Adverse Reaction Unknown RASH Active 03/18/17 Immunizations Query Response on File Recorded Date/Time Hx Influenza Vaccination Y JUL 2014 05/14/15 7:32am Hx Tetanus, Diptheria, Pertussis NO SKIN DISRUPTIONS 05/14/15 7:32am Hx Influenza Vaccination Y JUL 2014 05/14/15 7:32am Hx Tetanus, Diptheria, Pertussis NO SKIN DISRUPTIONS 05/14/15 7:32am Influenza Vaccine Hx 201403/18/17 2:26pm Vital Signs Acute Vital Signs Vital Response Date/Time Temperature (Fahrenheit) 97.0 deg F (96.8 - 99.1) 03/18/2017 2:08pm Temperature (Calculated Celsius) 36.75965 degrees C (36.0 - 37.3) 03/18/2017 2:08pm Pulse Rate (adult) 95 bpm (60 - 100) 03/18/2017 2:08pm Respiratory Rate 16 breaths/min (10 - 20) 03/18/2017 2:08pm O2 Sat by Pulse Oximetry 98 % (90 - 100) 03/18/2017 2:08pm Blood Pressure 103/62 mm Hg 03/18/2017 2:08pm Height (Feet) 5 feet 03/18/2017 2:08pm Height (Inches) 3.00 inches 03/18/2017 2:08pm Weight (Kilograms) 69.800 kg 03/18/2017 2:08pm Body Mass Index (BMI) 27.0 03/18/2017 2:08pm Results Laboratory Results Test Name Result Units Flags Reference Collection Date/Time Result Date/ Time Comments White Blood Count 10.0 T/MM3 4.5-11.0 03/18/2017 2:54pm 03/18/2017 3: 10pm Red Blood Count 5.53 M/MM3 4.50-5.90 03/18/2017 2:54pm 03/18/2017 3: 10pm Hemoglobin 17.8 GM/DL H 13.5-17.5 03/18/2017 2:54pm 03/18/2017 3:10pm Hematocrit 53.9 % H 41-53 03/18/2017 2:54pm 03/18/2017 3:10pm Mean Corpuscular Volume 97.5 UM3 80-100 03/18/2017 2:54pm 03/18/2017 3: 10pm Mean Corpuscular Hemoglobin 32.2 UUG 26-34 03/18/2017 2:54pm 2016 3:10pm Mean Corpuscular Hemoglobin Concent 33.0 GM/DL 31-37 03/18/2017 2:54pm 03/18/2017 3:10pm RDW Standard Deviation 51.6 FL H 36.9-50.2 03/18/2017 2:54pm 03/18/2017 3:10pm Platelet Count 195 T/MM3 130-400 03/18/2017 2:54pm 03/18/2017 3:10pm Mean Platelet Volume 10.8 UM3 9.4-12.4 03/18/2017 2:54pm 03/18/2017 3: 10pm Neutrophils (%) (Auto) 78.6 % H 33-66 03/18/2017 2:54pm 03/18/2017 3: 10pm Lymphocytes (%) (Auto) 11.2 % L 23-45 03/18/2017 2:54pm 03/18/2017 3: 10pm Monocytes (%) (Auto) 8.4 % 0-9.0 03/18/2017 2:54pm 03/18/2017 3:10pm Eosinophils (%) (Auto) 0.7 % 0-4 03/18/2017 2:54pm 03/18/2017 3:10pm Basophils (%) (Auto) 1.1 % 0-2 03/18/2017 2:54pm 03/18/2017 3:10pm Immature Granulocyte % (Auto) 0.0 % 0.0-0.5 03/18/2017 2:54pm 2016 3:10pm Absolute Neutrophils (auto) 7.8 T/MM3 H 1.8-7.7 03/18/2017 2:54pm 2016 3:10pm Absolute Lymphocytes (auto) 1.1 T/MM3 1-4.8 03/18/2017 2:54pm 2016 3:10pm Absolute Monocytes (auto) 0.8 T/MM3 0-0.8 03/18/2017 2:54pm 03/18/2017 3:10pm Absolute Eosinophils (auto) 0.1 T/MM3 0-0.5 03/18/2017 2:54pm 2016 3:10pm Absolute Basophils (auto) 0.1 T/MM3 0-0.2 03/18/2017 2:54pm 03/18/2017 3:10pm Absolute Immature Granulocyte (auto 0.00 T/MM3 0.00-0.03 03/18/2017 2: 54pm 03/18/2017 3:10pm Icterus Index < 2 0-7 03/18/2017 2:54pm 03/18/2017 3:14pm Chemistry Specimen Hemolysis < 15 0-25 03/18/2017 2:54pm 03/18/2017 4 :22pm 0-25: Specimen Exhibited No Hemolysis. Turbidity < 20 0-20 03/18/2017 2:54pm 03/18/2017 3:14pm Sodium Level 144 MEQ/L 134-144 03/18/2017 2:54pm 03/18/2017 3:14pm Potassium Level 3.4 MEQ/L L 3.6-5 03/18/2017 2:54pm 03/18/2017 3:14pm Chloride Level 103 MEQ/L 98-107 03/18/2017 2:54pm 03/18/2017 3:14pm Carbon Dioxide Level 20 MEQ/L L 22-30 03/18/2017 2:54pm 03/18/2017 3: 14pm Anion Gap 21 MEQ/L H 5-15 03/18/2017 2:54pm 03/18/2017 3:14pm Blood Urea Nitrogen 14.0 MG/DL 9-20 03/18/2017 2:54pm 03/18/2017 3: 14pm Creatinine 1.2 MG/DL 0.8-1.5 03/18/2017 2:54pm 03/18/2017 3:14pm BUN/Creatinine Ratio 12 RATIO 6-26 03/18/2017 2:54pm 03/18/2017 3:14pm Glomerular Filtration Rate Calc 62 03/18/2017 2:54pm 03/18/2017 3: 14pm Glucose Level 137 MG/DL H 75-110 03/18/2017 2:54pm 03/18/2017 3:14pm Calculated Osmolality 280 MOSM/KG 261-280 03/18/2017 2:54pm 03/18/2017 3:14pm Calcium Level 9.5 MG/DL 8.4-10.2 03/18/2017 2:54pm 03/18/2017 3:14pm Total Bilirubin 1.30 MG/DL 0.20-1.30 03/18/2017 2:54pm 03/18/2017 3: 14pm Alkaline Phosphatase 122 U/L 38-126 03/18/2017 2:54pm 03/18/2017 3: 14pm Total Protein 7.3 G/DL 6.3-8.2 03/18/2017 2:54pm 03/18/2017 3:14pm Albumin 4.1 G/DL 3.5-5.0 03/18/2017 2:54pm 03/18/2017 3:14pm Globulin 3.2 G/DL 2.4-3.6 03/18/2017 2:54pm 03/18/2017 3:14pm Albumin/Globulin Ratio 1.3 RATIO 1.1-2.2 03/18/2017 2:54pm 03/18/2017 3 :14pm Aspartate Amino Transf (AST/SGOT) 50 U/L 17-59 03/18/2017 2:54pm 2016 3:14pm Alanine Aminotransferase (ALT/SGPT) 43 U/L 21-72 03/18/2017 2:54pm 07/2017 3:14pm Troponin I < 0.012 ng/ml 0-0.12 03/18/2017 2:54pm 03/18/2017 4:22pm Troponin values with a difference of 55% increase from orginal troponin value represent a true biological DELTA value. (%increase Calc=Orginal Troponin value, divided by subsequent Troponin value, multiplied by 100) Lipase 240 U/L 23-300 03/18/2017 2:54pm 03/18/2017 3:24pm Urine Collection Type CLEANCATCH-MIDSTREAM 03/18/2017 3:06pm 2016 3:14pm Urine Color SELVIN YELLOW 03/18/2017 3:06pm 03/18/2017 3:14pm Urine Turbidity CLEAR CLEAR 03/18/2017 3:06pm 03/18/2017 3:14pm Urine Specific [place] >=1.030 H 1.015-1.025 03/18/2017 3:06pm 2016 3:14pm Urine pH 5.0 5.0-8.0 03/18/2017 3:06pm 03/18/2017 3:14pm Urine Leukocyte Esterase TRACE A NEGATIVE 03/18/2017 3:06pm 2016 3:14pm Urine Nitrite NEGATIVE NEGATIVE 03/18/2017 3:06pm 03/18/2017 3:14pm Urine Protein 2+ A NEGATIVE 03/18/2017 3:06pm 03/18/2017 3:14pm Urine Glucose (UA) NEGATIVE NEGATIVE 03/18/2017 3:06pm 03/18/2017 3: 14pm Urine Ketones TRACE A NEGATIVE 03/18/2017 3:06pm 03/18/2017 3:14pm Urine Urobilinogen 1.0 EU/DL NORMAL 03/18/2017 3:06pm 03/18/2017 3: 14pm Urine Bilirubin 2+ A NEGATIVE 03/18/2017 3:06pm 03/18/2017 3:14pm Urine Blood NEGATIVE NEGATIVE 03/18/2017 3:06pm 03/18/2017 3:14pm Urine WBC 1-3 /HPF 0-5 03/18/2017 3:06pm 03/18/2017 3:36pm Urine RBC 0-1 /HPF 0-3 03/18/2017 3:06pm 03/18/2017 3:36pm Urine Squamous Epithelial Cells 0-5 03/18/2017 3:06pm 03/18/2017 3: 36pm Urine Bacteria 1+ H NEGATIVE 03/18/2017 3:06pm 03/18/2017 3:36pm Urine Hyaline Casts 3-5 /LPF 03/18/2017 3:06pm 03/18/2017 3:36pm Urine Culture Indicated CULT NOT INDICATED 03/18/2017 3:06pm 2016 3:36pm Name: DONALD BALBUENA Unit #: [id number] : 1955 Sex: M Admit Date: Loc / Svc: ED Discharge Date: DIAGNOSTIC IMAGING REPORT Report #: [id number] [facility] [place] EXAM: CT RENAL W/O CONTRAST LOCATION OF DICTATION: [place] HISTORY: ITS.REASON: right flank COMPARISON: No prior studies available for comparison. TECHNIQUE: Multiple contiguous axial images were obtained of the abdomen and pelvis without contrast. Thin sections were obtained through the kidneys and ureters. Automated Exposure Control and Iterative Reconstruction dose reducing techniques were utilized. FINDINGS: CT ABDOMEN LUNG BASES: There is linear atelectasis or scarring within the lung bases. The heart is normal in size. Moderate calcific atherosclerotic disease of the coronary arteries. LIVER: There is diffuse fatty infiltration of the liver demonstrated. The liver is normal in size. SPLEEN: Unremarkable. GALLBLADDER: The gallbladder is surgically absent. PANCREAS: Unremarkable ADRENAL GLANDS: Unremarkable. KIDNEYS: There is mild left renal cortical thinning/atrophy. The kidneys demonstrate a lobulated appearing cortex bilaterally. There is no hydronephrosis or obstructing calculus. AORTA: There is moderate calcific atherosclerotic disease of the aorta and iliac arteries. LYMPH NODES: Unremarkable. STOMACH BOWEL LOOPS: There is diverticulosis without diverticulitis. Small hiatal hernia is demonstrated. PERITONEAL CAVITY: No abdominal or pelvic ascites. CT PELVIS URINARY BLADDER: Unremarkable. PELVIC VISCERA: The prostate is mildly prominent. The seminal vesicles are normal. OSSEOUS STRUCTURES: There is moderate spondylosis of the thoracolumbar spine. Chronic anterior wedge compression fracture suggested at T12 level. Probable chronic fractures involving the inferior endplate of L2 and. Endplate of L4 vertebra. Impression: 1. Lobulated appearing right and left kidneys with left renal cortical atrophy. No evidence for mass, hydronephrosis, or obstructing calculus. The right and left distal ureters are within normal limits. The bladder is decompressed and within normal limits. 2. Extensive diverticulosis about the descending and sigmoid colon without diverticulitis. 3. Moderate calcific atherosclerotic disease 4. There is suggested fatty infiltration of the liver. The gallbladder is surgically absent. . Procedures No known history of procedures. Encounters Encounter Location Arrival/Admit Date Discharge/Depart Date Attending Provider Departed Emergency Room [facility] 03/18/17 2:05pm 03/18/17 4: 38pm JORDI WILSON DO Recent Diagnosis
--- OUTSIDE RECORDS SUMMARY | 2017-04-07 20:47 | XMS REPORT | Continuity of Care Document ---
Author Author [facility] Organization [facility] Address Unknown Phone Unavailable Allergies Active Description [...] Ortiz Marsh MD 414.01 CORONARY ATHEROSCLEROSIS OF [place] CORONARY VESSEL 09/14/2014 Ortiz Masrh MD 737.30 IDIOPATHIC SCOLIOSIS 09/14/2014 Ortiz Marsh MD 786.59 11/16/2015 Kristal Dawson MD F17.200 NICOTINE DEPENDENCE, UNSPECIFIED, UNCOMPLICATED 11/16/2015 Kristal Dawson MD I10 ESSENTIAL (PRIMARY) HYPERTENSION 11/16/2015 Kristal Dawson MD I25.10 ATHSCL HEART DISEASE OF [place] CORONARY ARTERY W/O 11/16/2015 Kristal Dawson MD I25.2 OLD MYOCARDIAL INFARCTION 11/16/2015 Kristal Dawson MD R07.9 CHEST PAIN, UNSPECIFIED 11/16/2015 Kristal Dawson MD Z79.82 DIRECTOR WEB (CURRENT) USE OF ASPIRIN 11/16/2015 Kristal Dawson [...] INSERTION OF THREE VASCULAR STENTS Salma GARRISON [facility] 09/14/2014 00.66 PERCUTANEOUS TRANSLUMINAL CORONARY ANGIOPLASTY [PT Salma GARRISON [facility] 09/14/2014 36.07 INSRT OF DRUG-ELUTING CORON ARTERY STENTS(S) Salma GARRISON [facility] 09/14/2014 37.22 LEFT HEART CARDIAC CATH Salma GARRISON [facility] 09/14/2014 88.53 LT HEART ANGIOCARDIOGRAM Salma GARRISON [facility] 09/14/2014 88.56 CORONAR ARTERIOGR-2 CATH Salma GARRISON [facility] 09/14/2014 00.40 PROCEDURE ON SINGLE VESSEL Kelly Dawson MD H 02/23/2015 00.45 INSERTION OF ONE VASCULAR STENT Samir GARRISON [facility] 02/23/2015 00.66 PERCUTANEOUS TRANSLUMINAL CORONARY ANGIOPLASTY [PT Samir GARRISON [facility] 02/23/2015 36.06 CORONARY ARTERY STENT INSERTION [id number] Douglas Dawson MD H 02/23/2015 36.07 INSRT OF DRUG-ELUTING CORON ARTERY STENTS(S) Samir GARRISON [facility] 02/23/2015 37.22 LEFT HEART CARDIAC CATH Samir GARRISON [facility] H 02/23/2015 88.56 CORONAR ARTERIOGR-2 CATH [facility] 02/23/2015 Results Test Result Range CBC [...] TIME 224 sec 23- 39 METABOLIC PANEL, [facility] - 11/17/15 05:16 POTASSIUM 4.2 mmol/L [...] Status Pt. Type Provider Facility Loc./Unit Complaint [id number] 09/28/2016 08:09:00 2015 08:09:00 DIS Outpatient Hernando GARRISON, [facility] [id number] 09/27/2016 09:05:00 2015 13:03:00 DIS Outpatient Hernando GARRISON, [facility] W.END [id number] 07/26/2016 21:00:00 2015 01:45:00 DIS Emergency Stanislav GARRISON, [facility] W.TONY [id number] 11/16/2015 20:17:00 2015 15:58:00 DIS Inpatient Samir GARRISON, [facility] W.E [id number] 03/20/2015 04:01:00 2014 08:05:00 [facility] [id number] 02/23/2015 09:08:00 2014 10:37:00 DIS Outpatient Samir GARRISON, [facility] [id number] 09/14/2014 05:17:00 2013 13:20:00 DIS Inpatient Salma GARRISON, [facility] W.E [id number] 03/25/2014 06:40:00 2013 10:35:00 DIS Outpatient Hernando GARRISON, [facility] W.END [id number] 06/14/2013 12:58:00 2012 15:56:00 DIS Emergency Jovanny Frey DO [facility] [id number] 05/06/2013 06:30:00 2012 07:34:00 DIS Outpatient Lizette GARRISON, Matthew Ahn [facility] W.OPRA [id number] 11/09/2012 10:56:00 2011 14:25:00 DIS [facility] W.EDS
--- OUTSIDE RECORDS SUMMARY | 2017-04-07 20:47 | XMS REPORT | Continuity of Care Document ---
Author Author [place] [facility] Organization [facility] Address Unknown Phone Unavailable Care Team Providers Care Service Technician Copier Name Role Phone HARPREET CHARLES Primary Care Physician [phone] Insurance Providers Payer Name Policy Number Subscriber Name Relationship Medicare [id number] Donald Balbuena 18 Self Medicaid [id number] Donald Balbuena 18 Self Problems Medical Problems [...] F (96.8 - 99.1) Temperature (Calculated Celsius) 36.22118 degrees C (36.0 - 37.3) Pulse Rate [...] Has specimen been collected/obtained? Y Urine Specific [place] October 22, 2014 6:30am 1.010 L - [...] October 22, 2014 5:35am < 2 0-7 CE-Ahb-D-Type Natriuretic Peptide October 22, 2014 5:35am 620 PG/ML H 0 -175 Rule in cut points: <50 years old=450; 50-75 years old=900; >75 years old=1800; When utilizing ProBNP rule-in cut points, adjustment for impaired renal function is typically not required. Procedures No known history of procedures. Encounters Encounter Location Date/Time Departed Emergency Room [facility] 10/22/14 5:11am Recent Diagnosis
--- NOTE | 2017-04-07 20:54 | NUR ---
DR DR VOSS AT BEDSIDE.
[2017-04-07] MEDS ORDERED: KETOROLAC 60mg/2ml INJECTION IM ONE (21:00)
[2017-04-07] MEDS ORDERED: ORPHENADRINE 60mg/2ml INJECTION IM ONE (21:00)
[2017-04-07] MEDS ORDERED: HYDROMORPHONE 2mg/ml INJECTION IM ONE (21:00)
--- NOTE | 2017-04-07 21:03 | ERPDOC ---
Departure Disposition Decision Date: April 07, 2017 Disposition Decision Time: 21:04 Disposition: 01 DISCHARGED HOME, SELF-CARE Impression Impression Impression: Primary Impression: Exacerbation of chronic back pain Severity: Severe Condition: Improved Seen By: Physician only Referrals: HARPREET CHARLES (Family) Patient Instructions: Low Back Strain (ED), Thoracic Back Strain (ED) Problems/Meds/Labs Reviewed?: Yes Medications reviewed and manag: Yes Additional Instructions: Take your routine medications as prescribed Ibuprofen 600 mg 3 times daily Baclofen 10 mg 3 times daily for muscle spasms Use warm packs/warm water therapy as needed See your doctor next week Follow up care ordered?: Yes Mental Status: Alert Scripts Baclofen (Baclofen) 10 Mg Tablet 10 MG PO TID, #30 TAB 0 Refills Prov: LEIA VOSS MD 04/07/17 HPI - Back Pain General Chief Complaint: Fall Stated Complaint: NECK/BACK PAIN/FALL Time Seen by Provider: 20:50 Source: patient Exam Limitations: no limitations HPI - Back Pain Initial Comments Patient fell 2 days ago while getting off of his riding lawnmower, and since that time he has had "excruciating exacerbation of his chronic back pain and neck pain. Patient is still taking OxyContin and hydrocodone for his chronic pain, but it is not satisfying his current pain needs. Occurred At: home Onset/Timing: Gradual Severity/Quality: severe Location: C-spine, T-spine, lumbar spine, paraspinous muscles 1 - diffuse widespread left paraspinal tenderness with palpable spasms Associated Sypmtoms: lower back pain, muscle spasms, DENIES: fever, loss of bladder control, loss of bowel control, numbness in legs/feet, sensory/motor loss, tingling in legs/feet, weakness Hx of Similar Symptoms: Yes Allergies: Coded Allergies: tramadol HCl (Verified Adverse Reaction, Unknown, RASH, 04/07/17) Past History Past Medical History Metabolic: hypertension Cardiac: CAD, DE Respiratory: COPD GI: GERD, constipation, other Musculoskeletal: back pain, neck pain Psychological: alcohol abuse Surgical History General: appendix, gallbladder Cardiac: cardiac cath, cardiac stent Vaccines Hx Influenza Vaccination: Yes (JUL 2014) Social History Does patient use chewing tobac: No Second Hand Exposure: No Substance Use Type: does not use Alcohol Intake: none Sexuality: female partner Housing: house Service: No Occupational Hazard: No Advance Directives: Yes Full Code Review of Systems Constitutional Constitutional: DENIES: appetite decrease, appetite increase, chills, dizziness , fever, weakness ENMT Ears: DENIES: pain Hearing: DENIES: hearing loss, tinnitus Balance: DENIES: vertigo Mouth/Throat: DENIES: change in swallowing, change in voice, hoarsness, painful swallowing, sore throat Cardiovascular Cardiac: DENIES: chest pain, dyspnea on exertion Rhythm/Rate: DENIES: irregular beat, palpitations, tachycardia Vascular: DENIES: pedal edema Pulmonary Respiratory: DENIES: cough, dyspnea, pleuritic chest pain GI Upper Abdomen: DENIES: dysphagia, heartburn/indigestion, nausea, pain, vomiting Lower Abdomen: DENIES: blood in stool, constipation, diarrhea, pain General: DENIES: burning, dysuria, frequency, pain, urgency Musculoskeletal General: pain, tenderness, DENIES: cramps, joint pain, joint swelling, weakness Integumentary Skin: DENIES: rash, sores Neurological General: DENIES: headache, numbness, tingling, vertigo, weakness Psychiatric Psychiatric: DENIES: anxiety, depression, nervousness Physical Exam General General Nourishment: well nourished, well developed, appears stated age, no acute distress General Body Habitus: disheveled (chronic) Vitals and Pain First Documented Vital Signs Date Time Temp Pulse Resp B/P Pulse Ox O2 Delivery O2 Flow Rate FiO2 04/07/17 20:39 97.9 101 16 114/67 94 Room Air Weight: Kilograms: 68.100 Height (feet): 5 Height (inches): 2.00 Triage Pain Scale: RN VS reviewed by Provider: Yes Normal Exams: Head: Normocephalic w/o trauma Eyes: Pupils are PERRLA w/ EOMI, No scleral icterus, irritation, or foreign bodies noted ENMT: No facial trauma, nasal exudates, pharyngeal erythema, or exudates are noted Neck: Full range of motion, without adenopathy, JVD, bruits or thyromegaly Chest/Resp: Clear all reardon, with good airflow, and symmetry bilaterally CV: Regular rate and rhythm, without murmur or gallop, Pulses 2+ all extremities, capillary refill, <2 seconds all ext., no pedal edema noted Abdomen: Bowel sounds positive, soft, non-tender, non-distended, no hepatosplenomegaly, masses or bruits noted Lymphatic: No lymphadenopathy, or lymphedema noted Integumentary: No rashes, hives, or bruising noted, hair and nails, without abnormality Neurologic: Patient is alert, and oriented, cranial nerves, motor/sensory/ cerebellar, exams w/o gross deficits, to observation Psychiatric: Patient exhibits, appropriate attention, emotion and affect Musculoskeletal (brief) Musculoskeletal Brief: FOUND: spasm, tenderness (moderate diffuse widespread left paraspinal muscular tenderness with spasms throughout the cervical rhomboid thoracic and lumbar region. Patient has no midline tenderness, no deformity no contusions or bruising.) Progress Results/Orders Orders Procedure Category Date Status Time Hydromorphone PHA 04/07/17 Transmitted (Dilaudid) 21:00 Orphenadrine (Norflex) PHA 04/07/17 Transmitted 21:00 Ketorolac (Toradol) PHA 04/07/17 Transmitted 21:00 Progress Progress Patient is given prescription for and baclofen pack, also given intramuscular Toradol, Norflex, and Dilaudid in the ER for acute pain LEIA VOSS MD April 07, 2017 21:03
[2017-04-07] MEDS ORDERED: BACL10TA PO (21:05)
--- NOTE | 2017-04-07 21:08 | NUR ---
MEDS REVIEWED MEDICATION ORDERED WITH PT AT THIS TIME. DISCUSSED INDICATION/ACTION. UNDERSTANDING VERBALIZED.
--- OUTSIDE RECORDS SUMMARY | 2017-04-07 21:22 | XMS REPORT | Continuity of Care Document ---
Author Author [facility] Organization [facility] Address Unknown Phone Unavailable Support Name Relationship Address Phone ZELALEM PAULA Next Of Kin [address] [place] [address] Unavailable Insurance Providers Payer Name Policy Number Subscriber Name Relationship Medicaid [id number] [place] 19 Self Medicare [id number] Donald Balbuena 19 Self Problems No Known [...] Procedure Code Date THER/PROPH/DIAG INJ IV PUSH 83497 05/17/11 THER/PROPH/DIAG INJ IV PUSH 79602 10/25/12 THER/PROPH/DIAG INJ IV PUSH 18816 06/14/13 TX/PRO/DX INJ NEW DRUG ADDON 69182 06/14/13 HYDRATE IV INFUSION ADD-ON 80993 06/14/13 HYDRATE IV INFUSION ADD-ON 00932 06/14/13 Encounters Encounter Location Date/Time Departed Emergency Room [facility] 06/14/13 4:53pm Registered Emergency Room [facility] 0:00am
--- OUTSIDE RECORDS SUMMARY | 2017-04-07 21:22 | XMS REPORT | Continuity of Care Document ---
Author Author [facility] Organization [facility] Address Unknown Phone Unavailable Care Team Providers Care Automatic Toe Laster Name Role Phone HARPREET CHARLES Primary Care Physician [phone] Insurance Providers Payer Name Policy Number Subscriber Name Relationship Medicare [id number] Donald Balbuena 19 Self Medicaid [id number] Donald Balbuena 19 Self Problems Medical Problems [...] F (96.8 - 99.1) Temperature (Calculated Celsius) 36.08887 degrees C (36.0 - 37.3) Pulse Rate [...] Has specimen been collected/obtained? Y Urine Specific [place] January 26, 2014 6:45am 1.015 - Has [...]
--- OUTSIDE RECORDS SUMMARY | 2017-04-07 21:24 | XMS REPORT | Continuity of Care Document ---
Author Author [facility] Organization [facility] Address Unknown Phone Unavailable Care Team Providers Care Supervisor Lime Name Role Phone HARPREET CHARLES Primary Care Physician [phone] Insurance Providers Payer Name Policy Number Subscriber Name Relationship Medicare [id number] Donald Balbuena 19 Self Medicaid [id number] Donald Balbuena 19 Self Problems Medical Problems [...] F (96.8 - 99.1) Temperature (Calculated Celsius) 36.55203 degrees C (36.0 - 37.3) Pulse Rate [...] Has specimen been collected/obtained? Y Urine Specific [place] October 22, 2014 6:30am 1.010 L - [...] October 22, 2014 5:35am < 2 0-7 DP-Dus-C-Type Natriuretic Peptide October 22, 2014 5:35am 620 PG/ML H 0 -175 Rule in cut points: <50 years old=450; 50-75 years old=900; >75 years old=1800; When utilizing ProBNP rule-in cut points, adjustment for impaired renal function is typically not required. Procedures No known history of procedures. Encounters Encounter Location Date/Time Departed Emergency Room [facility] 10/22/14 5:11am Recent Diagnosis
--- OUTSIDE RECORDS SUMMARY | 2017-04-07 21:24 | XMS REPORT | Continuity of Care Document ---
Author Author [facility] Organization [facility] Address Unknown Phone Unavailable Allergies Active [...] Ortiz Marsh MD 414.01 CORONARY ATHEROSCLEROSIS OF [place] CORONARY VESSEL 09/14/2014 Ortiz Marsh MD 737.30 IDIOPATHIC SCOLIOSIS 09/14/2014 Ortiz Marsh MD 786.59 11/16/2015 Kristal Dawson MD F17.200 NICOTINE DEPENDENCE, UNSPECIFIED, UNCOMPLICATED 11/16/2015 Kristal Dawson MD I10 ESSENTIAL (PRIMARY) HYPERTENSION 11/16/2015 Kristal Dawson MD I25.10 ATHSCL HEART DISEASE OF [place] CORONARY ARTERY W/O 11/16/2015 Kristal Dawson MD I25.2 OLD MYOCARDIAL INFARCTION 11/16/2015 Kristal Dawson MD R07.9 CHEST PAIN, UNSPECIFIED 11/16/2015 Kristal Dawson MD Z79.82 REGULATORY ATTORNEY (CURRENT) USE OF ASPIRIN 11/16/2015 Kristal Dawson [...] INSERTION OF THREE VASCULAR STENTS Salma GARRISON [facility] 09/14/2014 00.66 PERCUTANEOUS TRANSLUMINAL CORONARY ANGIOPLASTY [PT Salma GARRISON [facility] 09/14/2014 36.07 INSRT OF DRUG-ELUTING CORON ARTERY STENTS(S) Salma GARRISON [facility] 09/14/2014 37.22 LEFT HEART CARDIAC CATH Salma GARRISON [facility] 09/14/2014 88.53 LT HEART ANGIOCARDIOGRAM Salma GARRISON [facility] 09/14/2014 88.56 CORONAR ARTERIOGR-2 CATH Salma GARRISON [facility] 09/14/2014 00.40 PROCEDURE ON SINGLE VESSEL Kelly Dawson MD H 02/23/2015 00.45 INSERTION OF ONE VASCULAR STENT Samir GARRISON [facility] 02/23/2015 00.66 PERCUTANEOUS TRANSLUMINAL CORONARY ANGIOPLASTY [PT Samir GARRISON [facility] 02/23/2015 36.06 CORONARY ARTERY STENT INSERTION [id number] Douglas Dawson MD H 02/23/2015 36.07 INSRT OF DRUG-ELUTING CORON ARTERY STENTS(S) Samir GARRISON [facility] 02/23/2015 37.22 LEFT HEART CARDIAC CATH Samir GARRISON [facility] 02/23/2015 88.56 CORONAR ARTERIOGR-2 CATH Samir GARRISON [facility] 02/23/2015 Results Test Result Range [...] TIME 224 sec 23- 39 METABOLIC PANEL, [facility] - 11/17/15 05:16 POTASSIUM 4.2 mmol/L [...] Status Pt. Type Provider Facility Loc./Unit Complaint [id number] 09/28/2016 08:09:00 2015 08:09:00 DIS Outpatient Hernando GARRISON, [facility] [id number] 09/27/2016 09:05:00 2015 13:03:00 DIS Outpatient Hernando GARRISON, [facility] W.END [id number] 07/26/2016 21:00:00 2015 01:45:00 DIS Emergency Stanislav GARRISON, [facility] W.TONY [id number] 11/16/2015 20:17:00 2015 15:58:00 DIS Inpatient Samir GARRISON, [facility] W.E [id number] 03/20/2015 04:01:00 2014 08:05:00 DIS Emergency [facility] [id number] 02/23/2015 09:08:00 2014 10:37:00 DIS Outpatient Samir GARRISON, [facility] [id number] 09/14/2014 05:17:00 2013 13:20:00 DIS Inpatient Salma GARRISON, [facility] W.E [id number] 03/25/2014 06:40:00 2013 10:35:00 DIS Outpatient Hernando GARRISON, [facility] W.END [id number] 06/14/2013 12:58:00 2012 15:56:00 DIS Emergency Jovanny Frey DO [facility] [id number] 05/06/2013 06:30:00 2012 07:34:00 DIS Outpatient Lizette GARRISON, [facility] W.OPRA [id number] 11/09/2012 10:56:00 2011 14:25:00 DIS Emergency Jovanny Frey DO [employer] [facility] [employer] [facility] W.EDS
[2017-04-07 21:44] VITALS: BP 87/54; PULSE 91; RESP 16; TEMP 97.9; O2SAT 92
--- NOTE | 2017-04-07 21:44 | NUR ---
DEPART PT TRANSFERED SELF TO WC WITH SOME DIFFICULTY. PT REPORTS BACK SPASMS. PT ESCORTED TO PRIVATE VEHICLE VIA WC. PT ASSISTED INTO VEHICLE THAT WAS DRIVEN BY . NO ACUTE DISTRESS.
== END 2017-04-07 21:44 | disposition home or self-care (01) ==
LOC: ED 20:37
DX: M54.2 Cervicalgia (principal); M54.6 Pain in thoracic spine; M54.5 Low back pain; W17.89XA Other fall from one level to another, initial encounter; Y93.H2 Activity, gardening and landscaping; Y92.007 Garden or yard of unspecified non-institutional (private) residence as the place of occurrence of the external cause; Y99.8 Other external cause status
CPT/HCPCS: 96372; 99283; J1170; J1885; J2360